=== PATIENT | female | born 1960 | race Caucasian/White ===

== ENCOUNTER 2017-10-17 13:22 | Outpatient (RCR) | payer BC ==
[2017-10-08] MEDS: IRON SUCROSE 200 MG/10 ML (VENOFER) VIAL IV SCH (12:30)
[2017-10-08 13:00] VITALS: BP 175/80
[2017-10-10 13:05] VITALS: BP 135/79
[2017-10-10] MEDS: IRON SUCROSE 200 MG/10 ML (VENOFER) VIAL IV SCH (13:15)
[2017-10-12 13:15] VITALS: BP 149/81
[2017-10-15] MEDS: IRON SUCROSE 200 MG/10 ML (VENOFER) VIAL IV SCH (12:58)
[2017-10-15 13:29] VITALS: BP 140/87
[~2017-10-17] VITALS: Ht 157.5 cm; Wt 79.4 kg
[~2017-10-17 13:22] MED LIST: IRON SUCROSE 200 MG/10 ML (VENOFER) VIAL IV ONE
[2017-10-17] MEDS: IRON SUCROSE 200 MG/10 ML (VENOFER) VIAL IV SCH (13:25)
[2017-10-17 13:46] VITALS: BP 127/77
[2017-10-17 13:52] VITALS: BP 127/77
== END 2018-01-06 | disposition home or self-care (01) ==
LOC: SDC 13:22
DX: D64.9 Anemia, unspecified (principal)
CPT/HCPCS: 96365

== ENCOUNTER → 2018-02-11 | Outpatient (CLI) | payer BC ==
--- NOTE | 2018-02-11 10:13 | Diagnostic Imaging Report ---
INDICATION: Routine screening. COMPARISON: 10/19/2014 and 08/04/2013. TECHNIQUE: 2D and 3D bilateral screening mammography was performed with CAD. FINDINGS: Both breasts are heterogeneously dense, limiting the sensitivity of mammography. Benign-appearing calcifications are identified bilaterally. No malignant appearing microcalcifications are seen. No dominant mass is seen. The axillae are unremarkable. IMPRESSION: No mammographic features suspicious for malignancy are identified. ACR BI-RADS Category 2: Benign findings. Result letter will be mailed to the patient. Note: At least 10% of breast cancer is not imaged by mammography. Dictated by: Dictated on workstation # [id number]
== END ==
LOC: RAD 07:53
DX: Z12.31 Encounter for screening mammogram for malignant neoplasm of breast (principal)
CPT/HCPCS: 77067

== ENCOUNTER → 2019-05-15 | Outpatient (CLI) | payer BC ==
--- NOTE | 2019-05-15 11:17 | Diagnostic Imaging Report ---
INDICATION: Routine screening. COMPARISON: Comparison is made with prior mammograms from 02/11/2018 and 10/19/2014. 2-D and 3-D bilateral screening mammography was performed. The current study was also evaluated with a Computer Aided Detection (CAD) system. 3-D tomosynthesis was also performed and reviewed. FINDINGS: Scattered fibroglandular densities are identified bilaterally. There are benign calcifications throughout both breasts. No spiculated mass or malignant appearing microcalcifications are seen. Axillae are unremarkable. IMPRESSION: No mammographic features suspicious for malignancy are identified. ACR BI-RADS Category 2: Benign findings. Result letter will be mailed to the patient. Note: At least 10% of breast cancer is not imaged by mammography. Dictated by: Dictated on workstation # [id number]
== END ==
LOC: RAD 10:04
DX: Z12.31 Encounter for screening mammogram for malignant neoplasm of breast (principal)
CPT/HCPCS: 77067

== ENCOUNTER → 2020-09-09 | Outpatient (CLI) | payer BC ==
--- NOTE | 2020-09-09 13:06 | Diagnostic Imaging Report ---
INDICATION: Left wrist pain. Time of exam 10:37 AM No prior studies are available for comparison. The distal radius and ulna appear to be intact. There is some widening of the scapholunate space, perhaps owing to scapholunate dissociation. There are some degenerative changes at the triscaphe and 1st CMC joints. No fractures are seen. Metacarpals are intact. IMPRESSION: There are some degenerative changes of the carpus. In addition, there is some mild widening of the scapholunate space which can be seen with scapholunate dissociation. No acute bony abnormality is detected. Dictated by: Dictated on workstation # [id number]
== END ==
LOC: RAD 10:10
DX: M19.032 Primary osteoarthritis, left wrist (principal)
CPT/HCPCS: 73110

== ENCOUNTER 2021-06-14 09:14 | Outpatient (CLI) | payer BC ==
[~2021-06-14] VITALS: Ht 162.6 cm; Wt 88.5 kg
[2021-06-14] MEDS ORDERED: BAMLANIVIMAB 700 MG/ETESEVIMAB 1,400 MG IN NS IV ONE ×3 (09:45)
[2021-06-14] MEDS ORDERED: EPINEPHrine INJECTION 1 MG/ML AMP IM PRN (09:45)
[2021-06-14] MEDS ORDERED: ACETAMINOPHEN 500 MG TAB (TYLENOL) PO PRN (09:45)
[2021-06-14] MEDS ORDERED: ONDANSETRON 4 MG/2 ML (SDV) Z0FRAN IV PRN (09:45)
[2021-06-14] MEDS ORDERED: diphenhydrAMINE 50 MG/ML INJ (BENADRYL) IV PRN (09:45)
[2021-06-14 10:28] VITALS: BP 138/78
== END 2021-06-14 11:15 | disposition home or self-care (01) ==
LOC: INFUSION 09:14
PROVIDERS: ATTEND Physician Assistant
DX: U07.1 COVID-19 (principal)

== ENCOUNTER → 2022-01-17 | Outpatient (CLI) | payer BC ==
--- NOTE | 2022-01-17 15:12 | Diagnostic Imaging Report ---
INDICATION: Screening. EXAMINATION: Bilateral 3D digital screening with CAD. COMPARISON: June 2018, January 2018, and September 2014. DENSITY: 2. FINDINGS: No breast mass, spiculated lesion, architectural distortion, suspicious calcifications, or findings to suggest malignancy. There has been no change. IMPRESSION: Negative mammography. ACR BI-RADS Category 1: Negative. Result letter will be mailed to the patient. Note: At least 10% of breast cancer is not imaged by mammography. Dictated by: Dictated on workstation # [id number]
== END ==
LOC: RAD 10:21
PROVIDERS: ATTEND Internal Medicine
DX: Z12.31 Encounter for screening mammogram for malignant neoplasm of breast (principal)
CPT/HCPCS: 77063; 77067

== ENCOUNTER 2023-01-28 19:31 | Inpatient (IN) | payer BC ==
[~2023-01-28] VITALS: Ht 162 cm; Wt 95.0 kg
[2023-01-28] MEDS ORDERED: ONDANSETRON 4 MG/2 ML (SDV) Z0FRAN IV PRN (20:15)
[2023-01-28] MEDS ORDERED: LACTATED RINGERS 1,000 ML IV ONE ×2 (20:15→21:00)
[2023-01-28] MEDS ORDERED: CEFEPIME INJECTION 1,000 MG in NS (IVPB) 50 ML 50 ML IV ONE (20:15)
[2023-01-28] MEDS ORDERED: ACETAMINOPHEN 500 MG TABLET PO PRN (20:15)
--- NOTE | 2023-01-28 20:18 | ED General ---
General Chief Complaint: Cough/Cold/Flu Symptoms Stated Complaint: NAUSEA/LOSS OF APETITE/DIZZINESS Source of Information: Patient History of Present Illness Date Seen by Provider: Jan 28, 2023 Time Seen by Provider: 20:00 Initial Comments PT ARRIVES VIA POV FROM HOME STARTED FEELING BAD TODAY WITH: -NAUSEA -DECREASED APPETITE -LIGHTHEADEDNESS -GENERALIZED WEAKNESS HAS NOT CHECKED TEMP AT HOME, AND UNAWARE OF FEVER TEMP IS 100.1 ON ARRIVAL SHE HAS NOT TAKEN ANYTHING FOR SYMPTOMS NO CHEST PAIN NO SHORTNESS OF BREATH NO COUGH NO VOMITING OR DIARRHEA OR ABDOMINAL PAIN NO URINARY SYMPTOMS RIGHT LOWER LEG IS RED, WARM AND SWOLLEN--PT IS UNAWARE OF THIS PCP: DR. JARA Allergies and Home Medications Allergies Coded Allergies: No Allergy Information Available (Unverified , 06/04/14) Patient Home Medication List Home Medication List Reviewed: Yes Albuterol Sulfate (Ventolin Hfa) 90 Mcg Hfa.aer.ad, 2 PUFF PO Q8H PRN for SHORTNESS OF BREATH, (Reported) Entered as Reported by: KANDACE GARCIA on 01/29/231129 Last Action: Held Atorvastatin Calcium (Atorvastatin Calcium) 10 Mg Tablet, 10 MG PO HS, (Reported) Entered as Reported by: KANDACE GARCIA on 01/29/231129 Last Action: Continued Calcium Carbonate (Calcium) 500 Mg Calcium (1250 Mg) Tablet, 500 MG PO DAILY, (Reported) Entered as Reported by: KANDACE GARCIA on 01/29/231130 Last Action: Held Celecoxib (Celecoxib) 400 Mg Capsule, 400 MG PO HS, (Reported) Entered as Reported by: KANDACE GARCIA on 01/29/231129 Last Action: Converted Fexofenadine HCl (Niurka Allergy) 180 Mg Tablet, 180 MG PO HS PRN for ALLERGIES, (Reported) Entered as Reported by: KANDACE GARCIA on 01/29/231129 Last Action: Held Glipizide (Glipizide) 5 Mg Tablet, 5 MG PO HS, (Reported) Entered as Reported by: KANDACE GARCIA on 01/29/231129 Last Action: Continued Hydrochlorothiazide (Hydrochlorothiazide) 25 Mg Tablet, 25 MG PO DAILY, (Reported) Entered as Reported by: KANDACE GARCIA on 01/29/231129 Last Action: Continued Losartan Potassium (Losartan Potassium) 100 Mg Tablet, 100 MG PO DAILY, (Reported) Entered as Reported by: KANDACE GARCIA on 01/29/231129 Last Action: Continued Metformin HCl (Metformin HCl) 500 Mg Tablet, 1,000 MG PO BID, (Reported) Entered as Reported by: KANDACE GARCIA on 01/29/231129 Last Action: Held Metoprolol Succinate (Metoprolol Succinate) 100 Mg Tab.er.24h, 100 MG PO HS, (Reported) Entered as Reported by: KANDACE GARCIA on 01/29/231129 Last Action: Continued Metoprolol Succinate (Metoprolol Succinate) 50 Mg Tab.er.24h, 50 MG PO DAILY, (Reported) Entered as Reported by: KANDACE GARCIA on 01/29/231129 Last Action: Continued Multivitamin (Multivitamin) 1 Each Tablet, 1 EACH PO DAILY, (Reported) Entered as Reported by: KANDACE GARCIA on 01/29/231130 Last Action: Held Pioglitazone HCl (Pioglitazone HCl) 45 Mg Tablet, 45 MG PO DAILY, (Reported) Entered as Reported by: KANDACE GARCIA on 01/29/231129 Last Action: Held Review of Systems Review of Systems Constitutional: see HPI, dizziness, malaise, weakness EENTM: no symptoms reported Respiratory: no symptoms reported Cardiovascular: no symptoms reported Gastrointestinal: see HPI; No abdominal pain, No diarrhea; loss of appetite, nausea; No vomiting Genitourinary: no symptoms reported Musculoskeletal: see HPI Skin: see HPI Psychiatric/Neurological: No Symptoms Reported Hematologic/Lymphatic: No Symptoms Reported Immunological/Allergic: no symptoms reported Past Hsfrauh-Kvrwpx-Jswzgk Hx Patient Social History Tobacco Use?: Yes Tobacco type used: Cigarettes Smoking Status: Former Smoker Substance use?: No Alcohol Use?: No Past Medical History Surgeries: Yes Gallbladder Respiratory: Yes Cardiac: Yes High Cholesterol, Hypertension Neurological: No Genitourinary: No Gastrointestinal: No Musculoskeletal: No Endocrine: Yes Diabetes, Non-Insulin dep HEENT: Yes Hearing Impairment: Hard of Hearing Cancer: No Psychosocial: No Integumentary: No Blood Disorders: No Family Medical History SOCIAL HISTORY: -SMOKED 1 PPD, QUIT AGE 38 -DENIES ALCOHOL USE -DENIES DRUG USE Physical Exam Vital Signs Vital Signs - First Documented 01/28/23 20:06 Temp 37.9 Pulse 131 Resp 20 B/P (MAP) 190/86 (120) Pulse Ox 95 O2 Delivery Nasal Cannula O2 Flow Rate 2.00 Capillary Refill : Height, Weight, BMI Height: 5'2.00" Weight: 175lbs. 0.0oz. 79.398253mz; BMI Method: General Appearance: No Apparent Distress, WD/WN HEENT: PERRL/EOMI Neck: Normal Inspection Respiratory: Normal Breath Sounds, No Accessory Muscle Use, No Respiratory Distress Cardiovascular: No Edema, No JVD, No Murmur, Normal Peripheral Pulses, Tachycardia Gastrointestinal: Non Tender, Soft Back: No CVA Tenderness Extremity: Normal Capillary Refill, Normal Inspection, No Pedal Edema, Other (DIFFUSE ERYTHEMA AND WARMTH AND TENDERNESS TO RIGHT LOWER LEG FROM FOOT TO JUST BELOW THE KNEE. THERE ARE EXTENSIVE SCABBED SORES TO BILATERAL MEDIAL THIGHS, LOWER LEGS AND FEET. BOTH FEET WITH EXTENSIVE SCALING TO SOLES AND SIDES OF FEET, WITH EXTENSIVE SCABBING--HAS APPEARANCE OF CHRONIC TINEA PEDIS. ) Neurologic/Psychiatric: Alert, Oriented x3, No Motor/Sensory Deficits, Normal Mood/Affect, manager van II-XII Norm as Tested Skin: Normal Color, Warm/Dry, Other ( ABOVE. THERE IS ALSO EXTENSIVE CANDIDAL INTERTRIGO UNDER BREAST AND INGUINAL SKIN FOLDS ) Focused Exam Sepsis Stage: Sepsis Possible Source: Skin/Soft Tissue Lactate Level 01/28/23 20:05: Lactic Acid Level 2.57*H 01/28/23 23:02: Lactic Acid Level 2.24*H Time of Focused Exam: 21:10 Respiratory: Normal Breath Sounds, No Accessory Muscle Use, No Respiratory Distress Cardiovascular: Regular Rate, Rhythm Capillary Refill: Less Than 3 Seconds Peripheral Pulses: 2+ Dorsalis Pedis (R), 2+ Left Dors-Pedis (L), 2+ Radial Pulses (R), 2+ Radial Pulses (L) Skin: normal color, warm/dry Lactic Acid Level Laboratory Tests Test 01/28/23 01:23 01/28/23 20:05 01/28/23 23:02 Lactic Acid Level 3.03 MMOL/L (0.50-2.00) *H 2.57 MMOL/L (0.50-2.00) *H 2.24 MMOL/L (0.50-2.00) *H Within 3hrs of presentation: Admin fluids, Admin ABX, Blood cultures prior to ABX's, Focus exam, Lactate level Progress/Results/Core Measures Suspected Sepsis SIRS Temperature: Pulse: Respiratory Rate: Laboratory Tests 01/28/23 20:05: White Blood Count 22.8H Blood Pressure / Mean: 01/28/23 20:05: Lactic Acid Level 2.57*H 01/28/23 23:02: Lactic Acid Level 2.24*H Laboratory Tests 01/28/23 20:05: Creatinine 0.82, INR Comment 1.0, Platelet Count 350, Total Bilirubin 0.6 Results/Orders Lab Results Laboratory Tests Test 01/28/23 01:23 01/28/23 20:05 01/28/23 20:38 01/28/23 23:02 Range/Units Lactic Acid Level 3.03 *H 2.57 *H 2.24 *H 0.50-2.00 MMOL/L White Blood Count 22.8 H 4.3-11.0 10^3/uL Red Blood Count 4.41 3.80-5.11 10^6/uL Hemoglobin 11.6 11.5-16.0 g/dL Hematocrit 36 35-52 % Mean Corpuscular Volume 81 80-99 fL Mean Corpuscular Hemoglobin 26 25-34 pg Mean Corpuscular Hemoglobin Concent 32 32-36 g/dL Red Cell Distribution Width 14.5 10.0-14.5 % Platelet Count 350 130-400 10^3/uL Mean Platelet Volume 9.5 9.0-12.2 fL Immature Granulocyte % (Auto) 1 % Neutrophils (%) (Auto) 91 H 42-75 % Lymphocytes (%) (Auto) 4 L 12-44 % Monocytes (%) (Auto) 3 0-12 % Eosinophils (%) (Auto) 0 0-10 % Basophils (%) (Auto) 0 0-10 % Neutrophils # (Auto) 20.9 H 1.8-7.8 10^3/uL Lymphocytes # (Auto) 1.0 1.0-4.0 10^3/uL Monocytes # (Auto) 0.6 0.0-1.0 10^3/uL Eosinophils # (Auto) 0.0 0.0-0.3 10^3/uL Basophils # (Auto) 0.1 0.0-0.1 10^3/uL Immature Granulocyte # (Auto) 0.2 H 0.0-0.1 10^3/uL Neutrophils % (Manual) 91 % Lymphocytes % (Manual) 6 % Monocytes % (Manual) 1 % Band Neutrophils 2 % Toxic Granulation 1+ Blood Morphology Comment NORMAL Erythrocyte Sedimentation Rate 29 0-30 MM/HR Prothrombin Time 13.6 12.2-14.7 SEC INR Comment 1.0 0.8-1.4 Activated Partial Thromboplast Time 31 24-35 SEC Sodium Level 131 L 135-145 MMOL/L Potassium Level 3.5 L 3.6-5.0 MMOL/L Chloride Level 94 L 98-107 MMOL/L Carbon Dioxide Level 20 L 21-32 MMOL/L Anion Gap 17 H 5-14 MMOL/L Blood Urea Nitrogen 14 7-18 MG/DL Creatinine 0.82 0.60-1.30 MG/DL Estimat Glomerular Filtration Rate 80 BUN/Creatinine Ratio 17 Glucose Level 205 H 70-105 MG/DL Calcium Level 8.7 8.5-10.1 MG/DL Corrected Calcium 8.5 8.5-10.1 MG/DL Magnesium Level 0.9 *L 1.6-2.4 MG/DL Total Bilirubin 0.6 0.1-1.0 MG/DL Aspartate Amino Transf (AST/SGOT) 26 5-34 U/L Alanine Aminotransferase (ALT/SGPT) 24 0-55 U/L Alkaline Phosphatase 55 40-136 U/L Total Creatine Kinase 51 29-168 U/L Creatine Kinase MB 0.5 <6.6 NG/ML Myoglobin 57.0 10.0-92.0 NG/ML Troponin I < 0.028 <0.028 NG/ML C-Reactive Protein High Sensitivity 13.22 H 0.00-0.50 MG/DL B-Type Natriuretic Peptide 121.2 H <100.0 PG/ML Total Protein 7.7 6.4-8.2 GM/DL Albumin 4.2 3.2-4.5 GM/DL Amylase Level 26 25-125 U/L Lipase 9 8-78 U/L Influenza Type A (RT-PCR) Not Detected Not Detecte Influenza Type B (RT-PCR) Not Detected Not Detecte SARS-CoV-2 RNA (RT-PCR) Not Detected Not Detecte Urine Color YELLOW Urine Clarity CLEAR Urine pH 6.0 5-9 Urine Specific [place] 1.025 H 1.016-1.022 Urine Protein 3+ H NEGATIVE Urine Glucose (UA) NEGATIVE NEGATIVE Urine Ketones 3+ H NEGATIVE Urine Nitrite NEGATIVE NEGATIVE Urine Bilirubin NEGATIVE NEGATIVE Urine Urobilinogen 0.2 < = 1.0 MG/DL Urine Leukocyte Esterase NEGATIVE NEGATIVE Urine RBC (Auto) TRACE H NEGATIVE Urine RBC 0-2 /HPF Urine WBC 2-5 /HPF Urine Squamous Epithelial Cells 0-2 /HPF Urine Crystals NONE /LPF Urine Bacteria FEW H /HPF Urine Casts NONE /LPF Urine Mucus SMALL H /LPF Urine Culture Indicated CULTURE PENDING Micro Results Microbiology 01/28/23 Blood Culture - Preliminary, Resulted No growth 01/28/23 Urine Culture - Final, Complete Strep agalactiae Group B 01/28/23 Blood Culture - Preliminary, Resulted No growth My Orders Orders - KOLBY MIRANDA DO Covid 19 Inhouse Test (01/28/23 20:03) Influenza A And B By Pcr (01/28/23 20:03) Ed Iv/Invasive Line Start (01/28/23 20:12) Ekg Tracing (01/28/23 20:12) O2 (01/28/23 20:12) Monitor-Rhythm Ecg Trace Only (01/28/23 20:12) Chest 1 View, Ap/Pa Only (01/28/23 20:12) Cbc With Automated Diff (01/28/23 20:12) Comprehensive Metabolic Panel (01/28/23 20:12) Blood Culture (01/28/23 20:12) Urinalysis (01/28/23 20:12) Urine Culture (01/28/23 20:12) Protime With Inr (01/28/23 20:12) Partial Thromboplastin Time (01/28/23 20:12) Acetaminophen Tablet (Acetaminophen Ta (01/28/23 20:15) Ed Iv/Invasive Line Start (01/28/23 20:12) Ed Iv/Invasive Line Start (01/28/23 20:12) Ondansetron Injection (Zofran Injectio (01/28/23 20:15) O2 (01/28/23 20:12) Remove Rings In Anticipation O (01/28/23 20:12) Lactic Acid Analyzer (01/28/23 20:12) Lactated Ringers (Lr 1000 Ml Iv Solution (01/28/23 20:15) Cefepime Injection (Cefepime Injection) (01/28/23 20:15) Bnp Rick (01/28/23 20:12) Creatine Kinase (01/28/23 20:12) Creatine Kinase Mb (01/28/23 20:12) Hs C Reactive Protein (01/28/23 20:12) Magnesium (01/28/23 20:12) Erythrocyte Sedimentation Rate (01/28/23 20:12) Myoglobin Serum (01/28/23 20:12) Troponin I Rick (01/28/23 20:12) Ibuprofen Tablet (Motrin Tablet) (01/28/23 20:30) Manual Differential (01/28/23 20:05) Ed Iv/Invasive Line Start (01/28/23 20:50) Lactated Ringers (Lr 1000 Ml Iv Solution (01/28/23 21:00) Amylase (01/28/23 21:04) Lipase (01/28/23 21:04) Ct Chest/Abdomen/Pelvis W (01/28/23 21:04) Vancomycin Injection (Vancomycin Injecti (01/28/23 21:30) Iohexol Injection (Omnipaque 350 Mg/Ml 1 (01/28/23 21:30) Received Contrast (Hold Metformin- Contr (01/28/23 21:30) Ns (Ivpb) 100 Ml (Sodium Chloride 0.9% 1 (01/28/23 21:30) Magnesium 1 Gm/100 Ml Ivpb (Magnesium [place] (01/28/23 21:30) Medications Given in ED Vital Signs/I&O 01/28/23 01/28/23 01/28/23 01/28/23 20:06 20:06 20:40 20:57 Temp 37.9 37.9 37.9 Pulse 131 Resp 20 B/P (MAP) 190/86 (120) Pulse Ox 95 90 O2 Delivery Nasal Cannula Room Air O2 Flow Rate 2.00 Capillary Refill : Progress Note : Progress Note VITALS ON ARRIVAL: TEMP 100.1, HR 125, RR 25, O2 SAT 92% ON ROOM AIR PLACED IN ISOLATION ROOM PPE WORN COVID AND FLU TESTS ORDERED SEPSIS PROTOCOL INITIATED. GIVEN: -IV FLUIDS -ZOFRAN -TYLENOL AND MOTRIN FOR FEVER -CEFEMPIME, ALSO ORDERED ZOSYN AND VANCYMYCIN NO DETERIORATION IN PT'S CONDITION DURING ER STAY VITALS STABLE. TEMP AND HEART RATE DOWN. BLOOD PRESSURE STABLE. NO HYPOTENSION LABS: -CBC WITH WBC 22.8, HGB 11.6, PLT 350,000 -CMP WITH NA 131, K 3.5, CO2 20, ANION GAP 17, BUN 14, CR 0.82, GLU 205, MG 0.09. LFT'S NORMAL, AMYLASE/LIPASE NORMAL -SED RATE 29, CRP 13.22 -LACTIC ACID 2.57 -COAGULATION STUDIES NORMAL -UA--FEW BACTERIA, 3+ PROTEIN, 3+ KETONES -COVID/FLU NEGATIVE EKG UNREMARKABLE CXR UNREMARKABLE CT CHEST ABDOMEN/PELVIS UNREMARKABLE DISCUSSED TEST RESULTS AND NEED FOR ADMIT AND PT AGREES TO PLAN REVIEWED PRIOR RECORDS ECG Initial ECG Impression Date: Jan 28, 2023 Initial ECG Impression Time: 20:22 Initial ECG Rate: 125 Initial ECG Rhythm: S.Tach Initial ECG Intervals: Normal Initial ECG Comparisson: No Previous ECG Available Comment INTERPRETED BY ME Diagnostic Imaging Comments CXR--PER RADIOLOGIST REPORT AT 2041 FINDINGS: Heart size and pulmonary vasculature are normal. The lungs are clear without consolidation, pleural effusion or pneumothorax. The osseous structures are intact. IMPRESSION: No acute radiographic abnormality in the chest. CT CHEST/ABDOMEN/PELVIS--PER RADIOLOGIST REPORT AT 2147 FINDINGS: Thyroid: The visualized thyroid gland is normal. Mediastinum: Heart size is normal without significant pericardial effusion. The aorta is normal in caliber. No suspicious lymphadenopathy. Lungs and airways: The lungs are clear without consolidation, pleural effusion or pneumothorax. The airways are normal. Solid organs: The liver is normal without focal lesion. The gallbladder is surgically absent. There is no biliary ductal dilation. Pancreas is normal. Spleen is normal. Adrenal glands are normal. The kidneys are normal without hydronephrosis. Bowel: The stomach and small bowel are normal without obstruction. The colon is normal. The appendix is normal. Peritoneum: There is no intraperitoneal free fluid or free air. No suspicious lymphadenopathy. Vasculature: Calcification of the aorta without aneurysm. Musculoskeletal: Degenerative changes of the spine without suspicious osseous lesion or compression fracture. There are prominent right inguinal lymph nodes present. Trace fat stranding or edema seen along the anterior right thigh near the lymph nodes. Pelvis: The uterus and adnexa are normal. The urinary bladder is normal. IMPRESSION: 1. No acute abnormality in the chest, abdomen or pelvis. 2. Prominent right internal lymph nodes which may be reactive given history of rash within the lower extremities. There is trace edema seen within the subcutaneous fat of the right thigh. Reviewed: Reviewed by Me Departure Communication (Admissions) 2149--SPOKE WITH DR. ANDERSON, HOSPITALIST. ACCEPTS PT FOR ADMIT. Impression Primary Impression: Sepsis Additional Impressions: Cellulitis of right leg Hypomagnesemia T2DM (type 2 diabetes mellitus) Tinea pedis Candidal intertrigo Obesity HTN (hypertension) Disposition: ADMITTED INPATIENT Condition: Stable Admissions Decision to Admit Reason: Admit from ER (General) Decision to Admit/Date: Jan 28, 2023 Time/Decision to Admit Time: 21:50 Departure-Patient Inst. Referrals: JONNIE JARA MD (PCP/Family) Primary Care Physician KOLBY MIRANDA DO Jan 28, 2023 20:18
[2023-01-28 20:22] LABS: BASOPHILS # (AUTO) 0.1 10^3/uL (0.0-0.1); BASOPHILS % (AUTO) 0 % (0-10); EOSINOPHILS % (AUTO) 0 % (0-10); HEMATOCRIT 36 % (35-52); HEMOGLOBIN 11.6 g/dL (11.5-16.0); LYMPHOCYTES % (AUTO) 4 % (12-44); MEAN CORPUSCULAR HEMOGLOBIN 26 pg (25-34); MEAN CORPUSCULAR HGB CONC 32 g/dL (32-36); MEAN CORPUSCULAR VOLUME 81 fL (80-99); MEAN PLATELET VOLUME 9.5 fL (9.0-12.2); MONOCYTES # (AUTO) 0.6 10^3/uL (0.0-1.0); MONOCYTES % (AUTO) 3 % (0-12); NEUTROPHILS # (AUTO) 20.9 10^3/uL (1.8-7.8); NEUTROPHILS % (AUTO) 91 % (42-75); PLATELET COUNT 350 10^3/uL (130-400); WHITE BLOOD COUNT 22.8 10^3/uL (4.3-11.0)
[2023-01-28] MEDS ORDERED: IBUPROFEN 800 MG TABLET PO ONE (20:30)
--- NOTE | 2023-01-28 20:40 | Diagnostic Imaging Report ---
EXAMINATION: Chest, 1 view. HISTORY: Fever. COMPARISON: None available. FINDINGS: Heart size and pulmonary vasculature are normal. The lungs are clear without consolidation, pleural effusion or pneumothorax. The osseous structures are intact. IMPRESSION: No acute radiographic abnormality in the chest. Dictated by: Dictated on workstation # [id number]
[2023-01-28 20:41] LABS: ALANINE AMINOTRANSFERASE 24 U/L (0-55); ALBUMIN 4.2 GM/DL (3.2-4.5); ALKALINE PHOSPHATASE 55 U/L (40-136); BILIRUBIN,TOTAL 0.6 MG/DL (0.1-1.0); BUN/CREATININE RATIO 17; CALCIUM 8.7 MG/DL (8.5-10.1); CARBON DIOXIDE 20 MMOL/L (21-32); CHLORIDE 94 MMOL/L (98-107); CREATINE KINASE 51 U/L (29-168); CREATININE SERUM 0.82 MG/DL (0.60-1.30); GFR ESTIMATED 80; GLUCOSE 205 MG/DL (70-105); POTASSIUM 3.5 MMOL/L (3.6-5.0); SODIUM 131 MMOL/L (135-145); TOTAL PROTEIN 7.7 GM/DL (6.4-8.2)
[2023-01-28 20:45] LABS: PROTHROMBIN TIME PATIENT 13.6 SEC (12.2-14.7)
[2023-01-28 20:48] LABS: BAND NEUTROPHILS 2 %; CREATINE KINASE MB 0.5 NG/ML (<6.6); ERYTHROCYTE SEDIMENTATION RATE 29 MM/HR (0-30); LYMPHOCYTES % (MANUAL) 6 %; MONOCYTES % (MANUAL) 1 %; NEUTROPHILS % (MANUAL) 91 %; RBC MORPH NORMAL; TOXIC GRANULATION/VACUOLAZATIO 1+
[2023-01-28 21:02] LABS: CLARITY,URINE CLEAR; COLOR,URINE YELLOW
[2023-01-28 21:03] LABS: BACTERIA,URINE FEW /HPF; BILIRUBIN,URINE NEGATIVE (NEGATIVE); GLUCOSE, URINE (UA) NEGATIVE (NEGATIVE); KETONES,URINE 3+ (NEGATIVE); LEUKOCYTE ESTERASE ,URINE NEGATIVE (NEGATIVE); NITRITE,URINE NEGATIVE (NEGATIVE); PROTEIN,URINE 3+ (NEGATIVE); RBC,URINE 0-2 /HPF; SQUAMOUS EPITHELIAL CELL,UR 0-2 /HPF
[2023-01-28 21:20] LABS: MAGNESIUM 0.9 MG/DL (1.6-2.4)
[2023-01-28] MEDS ORDERED: NS 100 ML (IVPB) BAG IV ONE (21:30)
[2023-01-28] MEDS ORDERED: HOLD METFORMIN - RECEIVED CONTRAST 20 ML VIAL IV SCH (21:30)
[2023-01-28] MEDS ORDERED: IOHEXOL 350 MG/ML 100 ML (OMNIPAQUE 350) VIAL IV ONE (21:30)
--- NOTE | 2023-01-28 21:38 | Diagnostic Imaging Report ---
EXAMINATION: CT chest, abdomen and pelvis with intravenous contrast. TECHNIQUE: Multiple contiguous axial images were obtained through the chest, abdomen and pelvis after the uneventful administration of intravenous contrast. All CT scans use one or more of the following dose optimizing techniques: automated exposure control, MA and/or KvP adjustment based on patient size and exam type or iterative reconstruction. HISTORY: Nausea, fever. COMPARISON: 06/04/2014. FINDINGS: Thyroid: The visualized thyroid gland is normal. Mediastinum: Heart size is normal without significant pericardial effusion. The aorta is normal in caliber. No suspicious lymphadenopathy. Lungs and airways: The lungs are clear without consolidation, pleural effusion or pneumothorax. The airways are normal. Solid organs: The liver is normal without focal lesion. The gallbladder is surgically absent. There is no biliary ductal dilation. Pancreas is normal. Spleen is normal. Adrenal glands are normal. The kidneys are normal without hydronephrosis. Bowel: The stomach and small bowel are normal without obstruction. The colon is normal. The appendix is normal. Peritoneum: There is no intraperitoneal free fluid or free air. No suspicious lymphadenopathy. Vasculature: Calcification of the aorta without aneurysm. Musculoskeletal: Degenerative changes of the spine without suspicious osseous lesion or compression fracture. There are prominent right inguinal lymph nodes present. Trace fat stranding or edema seen along the anterior right thigh near the lymph nodes. Pelvis: The uterus and adnexa are normal. The urinary bladder is normal. IMPRESSION: 1. No acute abnormality in the chest, abdomen or pelvis. 2. Prominent right internal lymph nodes which may be reactive given history of rash within the lower extremities. There is trace edema seen within the subcutaneous fat of the right thigh. Dictated by: Dictated on workstation # [id number]
[2023-01-28 21:45] LABS: AMYLASE 26 U/L (25-125); LIPASE 9 U/L (8-78)
[2023-01-28] MEDS: MAGNESIUM 1 GM/100 ML IVPB 100 ML IV SCH ×2 (21:57→23:06)
[2023-01-28 23:33] VITALS: BP 148/87
[2023-01-29] MEDS: MAGNESIUM 1 GM/100 ML IVPB 100 ML IV SCH ×2 (00:01→01:34)
[2023-01-29] MEDS: VANCOMYCIN INJECTION 1,000 MG in NS (IVPB) 250 ML 250 ML IV SCH ×2 (00:04→01:38)
[2023-01-29] MEDS ORDERED: ONDANSETRON 4 MG/2 ML (SDV) Z0FRAN IV PRN (00:30)
[2023-01-29] MEDS ORDERED: fentaNYL INJECTION 100 MCG/2 ML VIAL IV PRN (00:30)
[2023-01-29] MEDS: NS IV 1000 ML 1,000 ML IV SCH ×4 (00:47→16:24)
[2023-01-29] MEDS ORDERED: PIPERACILLIN SODIUM/TAZOBACTAM 4.5 GM in NS (IVPB) 100 ML 100 ML IV ONE (01:00)
[2023-01-29] MEDS: FLUCONAZOLE 200 MG/NACL 100 ML (PRE-MIX) IV SCH (01:34)
[2023-01-29 03:13] VITALS: BP 143/83
[2023-01-29] MEDS: ACETAMINOPHEN 500 MG TABLET PO PRN ×2 (03:20→16:39)
[2023-01-29] MEDS: IBUPROFEN 800 MG TABLET PO PRN (04:43)
[2023-01-29] MEDS: PIPERACILLIN SODIUM/TAZOBACTAM 4.5 GM in NS (IVPB) 100 ML 100 ML IV SCH ×3 (05:29→21:12)
[2023-01-29 05:30] LABS: BASOPHILS # (AUTO) 0.1 10^3/uL (0.0-0.1); BASOPHILS % (AUTO) 1 % (0-10); EOSINOPHILS % (AUTO) 0 % (0-10); HEMATOCRIT 30 % (35-52); HEMOGLOBIN 9.8 g/dL (11.5-16.0); LYMPHOCYTES % (AUTO) 7 % (12-44); MEAN CORPUSCULAR HEMOGLOBIN 27 pg (25-34); MEAN CORPUSCULAR HGB CONC 33 g/dL (32-36); MEAN CORPUSCULAR VOLUME 82 fL (80-99); MEAN PLATELET VOLUME 9.5 fL (9.0-12.2); MONOCYTES # (AUTO) 0.6 10^3/uL (0.0-1.0); MONOCYTES % (AUTO) 4 % (0-12); NEUTROPHILS # (AUTO) 13.5 10^3/uL (1.8-7.8); NEUTROPHILS % (AUTO) 88 % (42-75); PLATELET COUNT 291 10^3/uL (130-400); WHITE BLOOD COUNT 15.3 10^3/uL (4.3-11.0)
[2023-01-29 05:44] LABS: ALBUMIN 3.5 GM/DL (3.2-4.5); POTASSIUM 3.4 MMOL/L (3.6-5.0)
[2023-01-29 05:45] LABS: CALCIUM 8.2 MG/DL (8.5-10.1)
[2023-01-29 05:47] LABS: TOTAL PROTEIN 6.8 GM/DL (6.4-8.2)
[2023-01-29 05:48] LABS: BILIRUBIN,TOTAL 0.5 MG/DL (0.1-1.0)
[2023-01-29 05:50] LABS: CREATININE SERUM 0.83 MG/DL (0.60-1.30)
[2023-01-29] MEDS: inSUlin ASPART 1 UNIT/0.01 ML (PER UNIT) SC SCH ×4 (05:55→21:11)
[2023-01-29 07:43] VITALS: BP 123/60
[2023-01-29] MEDS: NYSTATIN CREAM (MYCOSTATIN) 30 GM TUBE TP SCH ×3 (08:48→20:07)
[2023-01-29] MEDS ORDERED: FEXO180T84 PO (11:30)
[2023-01-29] MEDS ORDERED: LOSA100T58 PO (11:30)
[2023-01-29] MEDS ORDERED: GLIP5TAB13 PO (11:30)
[2023-01-29] MEDS ORDERED: HYDR25TA4 PO (11:30)
[2023-01-29] MEDS ORDERED: ATOR10TA66 PO (11:30)
[2023-01-29] MEDS ORDERED: METO50TA7 PO (11:30)
[2023-01-29] MEDS ORDERED: ALBU18HF2 PO (11:30)
[2023-01-29] MEDS ORDERED: PIOG45TA65 PO (11:30)
[2023-01-29] MEDS ORDERED: MTP100TCR PO (11:30)
[2023-01-29] MEDS ORDERED: METF-397 PO (11:30)
[2023-01-29] MEDS ORDERED: CELE400C10 PO (11:30)
[2023-01-29] MEDS ORDERED: CALC-823 PO (11:31)
[2023-01-29] MEDS ORDERED: MULT-1136 PO (11:31)
[2023-01-29 11:38] VITALS: BP 143/83
--- NOTE | 2023-01-29 14:18 | History & Physical-Hospitalist ---
History of Present Illness HPI/Chief Complaint Azeb Elliott is a 62 year old female with PMH HTN, T2DM, HLD, obesity, who presented with malaise. She reports that she started feeling sick yesterday. She had fevers and chills. She had nausea. She did not have a good appetite. She was feeling weak. She noticed her leg was getting red once she got to the ER. She hs having some swelling and pain. She says her leg is warm. She has some open wounds on her proximal, dorsal foot. She has been having issues with a fungal infection. She denies shortness of breath and cough. She denies chest pain. She denies dysuria. Source: patient Exam Limitations: no limitations Date Seen 01/29/23 Time Seen by a Provider: 10:55 Attending Physician Sid Madison MD PCP Admitting Physician: Martín Alamo MD Attending Physician: Martín Alamo MD Referring Physician Date of Admission Jan 28, 2023 at 23:19 Home Medications & Allergies Home Medications Reviewed patient Home Medication Reconciliation performed by pharmacy medication reconciliations central processing technician and/or nursing. Patients Allergies have been reviewed. Allergies Allergies Coded Allergies No Allergy Information Available ([id number]/11/14) Past Fyajbeh-Sjzefq-Dlycip Hx Patient Social History Tobacco Use?: No Smoking Status: Former Smoker Use of E-Cig and/or Vaping dev: No Substance use?: No Alcohol Use?: No Pt feels they are or have been: No Seasonal Allergies Seasonal Allergies: No Current Status status: No Communicates: Verbally Primary Language: Lithuanian Preferred Spoken Language: Lithuanian Is interpretation needed?: No Sensory deficits: Other Implanted or Applied Medical D: None Past Medical History Surgeries: Gallbladder High Cholesterol, Hypertension Diabetes, Non-Insulin dep Hearing Impairment: Hard of Hearing Blood Disorders: No Family Medical History No Pertinent Family Hx Review of Systems Constitutional: chills, fever, malaise, weakness Respiratory: no symptoms reported Cardiovascular: no symptoms reported Gastrointestinal: loss of appetite, nausea Physical Exam Physical Exam Vital Signs Vital Signs - First Documented 01/28/23 20:06 Temp 37.9 Pulse 131 Resp 20 B/P (MAP) 190/86 (120) Pulse Ox 95 O2 Delivery Nasal Cannula O2 Flow Rate 2.00 Capillary Refill : Less Than 3 Seconds Height, Weight, BMI Height: 5'2.00" Weight: 175lbs. 0.0oz. [id number]; 36.16 BMI Method: General Appearance: No Apparent Distress, Obese Neck: Normal Inspection, Supple Respiratory: Lungs Clear, Normal Breath Sounds, No Respiratory Distress Cardiovascular: Regular Rate, Rhythm, No Murmur Gastrointestinal: Normal Bowel Sounds, Non Tender, Soft Extremity: Inflammation (right lower extremity mild erythema from ankle to knee with swelling and slight warmth) Neurologic/Psychiatric: Alert, Normal Mood/Affect Skin: Warm/Dry, Erythema (right leg) Results Results/Procedures Labs Laboratory Tests 01/28/23 20:05 01/29/23 05:20 Patient resulted labs reviewed. Imaging: Reviewed Imaging Report Assessment/Plan Admission Diagnosis Severe sepsis Admission Status: Inpatient Order (span 2 midnights) Reason for Inpatient Admission: Cellulitis Assessment and Plan Severe sepsis due to cellulitis Lactic acidosis Shantel infection Vanc and Zosyn IV fluids Diflucan T2DM Sliding scale insulin HTN HLD Obesity Resume Metoprolol Holding other home meds DVT prophylaxis: Lovenox Diagnosis/Problems Diagnosis/Problems (1) Severe sepsis Status: Acute (2) Cellulitis Status: Acute Qualifiers: Site of cellulitis: extremity Site of cellulitis of extremity: lower extremity Laterality: right Qualified Codes: L03.115 - Cellulitis of right lower limb (3) Lactic acidosis Status: Acute (4) HTN (hypertension) Status: Chronic (5) T2DM (type 2 diabetes mellitus) Status: Chronic (6) HLD (hyperlipidemia) Status: Chronic (7) Obesity Status: Chronic MARTÍN ALAMO MD Jan 29, 2023 14:18
[2023-01-29 15:31] VITALS: BP 154/85
[2023-01-29] MEDS: VANCOMYCIN 750 MG/NS 250 ML IVPB IV SCH ×2 (18:28)
[2023-01-29 20:07] VITALS: BP 160/84
[2023-01-29 23:16] VITALS: BP 185/92
[2023-01-30] VITALS (7 sets, daily range): BP systolic 123–180; BP diastolic 76–96
[2023-01-30] MEDS ORDERED: FUROSEMIDE INJECTION 40 MG/4 ML VIAL IVP ONE (00:15)
[2023-01-30] MEDS ORDERED: FUROSEMIDE INJECTION 40 MG/4 ML VIAL ONE (00:20)
[2023-01-30] MEDS: FLUCONAZOLE 200 MG/NACL 100 ML (PRE-MIX) IV SCH (01:12)
[2023-01-30] MEDS: NS IV 1000 ML 1,000 ML IV SCH (01:12)
[2023-01-30] MEDS: ACETAMINOPHEN 500 MG TABLET PO PRN ×2 (03:50→16:04)
[2023-01-30] MEDS: inSUlin ASPART 1 UNIT/0.01 ML (PER UNIT) SC SCH ×4 (05:14→20:37)
[2023-01-30] MEDS: PIPERACILLIN SODIUM/TAZOBACTAM 4.5 GM in NS (IVPB) 100 ML 100 ML IV SCH ×3 (05:15→21:26)
[2023-01-30] MEDS: VANCOMYCIN 750 MG/NS 250 ML IVPB IV SCH ×4 (05:15→18:25)
[2023-01-30 05:28] LABS: BASOPHILS # (AUTO) 0.1 10^3/uL (0.0-0.1); BASOPHILS % (AUTO) 1 % (0-10); EOSINOPHILS # (AUTO) 0.1 10^3/uL (0.0-0.3); EOSINOPHILS % (AUTO) 0 % (0-10); HEMATOCRIT 30 % (35-52); HEMOGLOBIN 9.8 g/dL (11.5-16.0); LYMPHOCYTES % (AUTO) 6 % (12-44); MEAN CORPUSCULAR HEMOGLOBIN 27 pg (25-34); MEAN CORPUSCULAR HGB CONC 32 g/dL (32-36); MEAN CORPUSCULAR VOLUME 83 fL (80-99); MEAN PLATELET VOLUME 9.8 fL (9.0-12.2); MONOCYTES # (AUTO) 0.7 10^3/uL (0.0-1.0); MONOCYTES % (AUTO) 4 % (0-12); NEUTROPHILS # (AUTO) 15.1 10^3/uL (1.8-7.8); NEUTROPHILS % (AUTO) 88 % (42-75); PLATELET COUNT 277 10^3/uL (130-400); WHITE BLOOD COUNT 17.1 10^3/uL (4.3-11.0)
[2023-01-30 06:03] LABS: ALBUMIN 3.6 GM/DL (3.2-4.5); BILIRUBIN,TOTAL 0.5 MG/DL (0.1-1.0); CALCIUM 8.3 MG/DL (8.5-10.1); CREATININE SERUM 0.76 MG/DL (0.60-1.30); POTASSIUM 3.1 MMOL/L (3.6-5.0); TOTAL PROTEIN 6.9 GM/DL (6.4-8.2)
[2023-01-30] MEDS: NYSTATIN CREAM (MYCOSTATIN) 30 GM TUBE TP SCH ×3 (08:18→20:37)
--- NOTE | 2023-01-30 12:46 | Progress Note - Hospitalist ---
Subjective HPI/CC On Admission Date Seen by Provider: Jan 30, 2023 Azeb Elliott is a 62 year old female with PMH HTN, T2DM, HLD, obesity, who presented with malaise. She reports that she started feeling sick yesterday. She had fevers and chills. She had nausea. She did not have a good appetite. She was feeling weak. She noticed her leg was getting red once she got to the ER. She hs having some swelling and pain. She says her leg is warm. She has some open wounds on her proximal, dorsal foot. She has been having issues with a fungal infection. She denies shortness of breath and cough. She denies chest pain. She denies dysuria. Subjective/Events-last exam Pt reports doing about the same. Leg improved from admission but still red. Sitting with legs down in recliner though and encouraged her to keep them elevated. She immediately complied. Reviewed events from last night. Focused Exam Lactate Level 01/28/23 20:05: Lactic Acid Level 2.57*H 01/28/23 23:02: Lactic Acid Level 2.24*H 01/29/23 05:20: Lactic Acid Level 1.38 Objective Exam Vital Signs Vital Signs Date Time Temp Pulse Resp B/P (MAP) Pulse Ox O2 Delivery O2 Flow Rate FiO2 01/30/23 11:17 36.6 81 18 138/80 (99) 98 Nasal Cannula 2.00 Capillary Refill : Less Than 3 Seconds General Appearance: No Apparent Distress Respiratory: Lungs Clear, No Respiratory Distress Cardiovascular: Regular Rate, Rhythm, No Murmur Gastrointestinal: Normal Bowel Sounds, Soft Neurologic/Psychiatric: Alert, Oriented x3 Results/Procedures Lab Laboratory Tests 01/30/23 05:03 Patient resulted labs reviewed. Imaging: Reviewed Imaging Report Assessment/Plan Assessment and Plan Assess & Plan/Chief Complaint Severe sepsis due to cellulitis Lactic acidosis Shantel infection Vanc and Zosyn DC IVF as got fluid overloaded last night- responded well to lasix- resume home HCTZ Diflucan T2DM Sliding scale insulin Resume glipizide and pioglitazone HTN HLD Obesity Resume Metoprolol, HCTZ and Losartan DVT prophylaxis: BRIDGETTE Hall MD Jan 30, 2023 12:46
[2023-01-30] MEDS ORDERED: RT-ALBUTEROL SULF 2.5 MG/3 ML PRE-MIX VIAL INH NR (16:30)
[2023-01-30] MEDS ORDERED: RT-ALBUTEROL SULF 2.5 MG/3 ML PRE-MIX VIAL ONE (16:31)
[2023-01-30] MEDS ORDERED: TROUGH ORDER-PHARMACY XX ONE (17:00)
[2023-01-30] MEDS: glipiZIDE 5 MG TABLET PO SCH (17:07)
[2023-01-30] MEDS: RT-Ipratropium/Albuterol NEB 3 ML VIAL INH SCH ×2 (18:36→22:27)
[2023-01-30] MEDS: CELECOXIB 100 MG CAPSULE PO SCH (20:36)
[2023-01-30] MEDS ORDERED: CELECOXIB 400 MG PO SCH (21:00)
[2023-01-31] MEDS: FLUCONAZOLE 200 MG/NACL 100 ML (PRE-MIX) IV SCH (01:31)
[2023-01-31] MEDS: RT-Ipratropium/Albuterol NEB 3 ML VIAL INH SCH ×6 (02:11→21:33)
[2023-01-31 04:01] VITALS: BP 148/83
[2023-01-31] MEDS: VANCOMYCIN 1 GM/NS 250 ML IVPB IV SCH ×4 (04:38→17:38)
[2023-01-31] MEDS: inSUlin ASPART 1 UNIT/0.01 ML (PER UNIT) SC SCH ×4 (05:34→20:58)
[2023-01-31] MEDS: PIPERACILLIN SODIUM/TAZOBACTAM 4.5 GM in NS (IVPB) 100 ML 100 ML IV SCH ×3 (05:48→21:20)
[2023-01-31 05:57] LABS: BASOPHILS # (AUTO) 0.1 10^3/uL (0.0-0.1); BASOPHILS % (AUTO) 1 % (0-10); EOSINOPHILS # (AUTO) 0.5 10^3/uL (0.0-0.3); EOSINOPHILS % (AUTO) 4 % (0-10); HEMATOCRIT 27 % (35-52); HEMOGLOBIN 8.5 g/dL (11.5-16.0); LYMPHOCYTES # (AUTO) 1.5 10^3/uL (1.0-4.0); LYMPHOCYTES % (AUTO) 11 % (12-44); MEAN CORPUSCULAR HEMOGLOBIN 26 pg (25-34); MEAN CORPUSCULAR HGB CONC 31 g/dL (32-36); MEAN CORPUSCULAR VOLUME 84 fL (80-99); MEAN PLATELET VOLUME 10.1 fL (9.0-12.2); MONOCYTES # (AUTO) 0.9 10^3/uL (0.0-1.0); MONOCYTES % (AUTO) 7 % (0-12); NEUTROPHILS # (AUTO) 10.6 10^3/uL (1.8-7.8); NEUTROPHILS % (AUTO) 78 % (42-75); PLATELET COUNT 282 10^3/uL (130-400); WHITE BLOOD COUNT 13.6 10^3/uL (4.3-11.0)
[2023-01-31 06:11] LABS: ALBUMIN 3.3 GM/DL (3.2-4.5); BILIRUBIN,TOTAL 0.4 MG/DL (0.1-1.0); CALCIUM 8.6 MG/DL (8.5-10.1); CREATININE SERUM 0.69 MG/DL (0.60-1.30); TOTAL PROTEIN 6.5 GM/DL (6.4-8.2)
[2023-01-31 07:17] VITALS: BP 171/78
[2023-01-31] MEDS: NYSTATIN CREAM (MYCOSTATIN) 30 GM TUBE TP SCH ×3 (08:14→19:56)
[2023-01-31] MEDS: LOSARTAN 100 MG TABLET PO SCH (08:14)
[2023-01-31] MEDS ORDERED: PANTOPRAZOLE 40 MG (PROTONIX) TAB PO ONE (11:00)
[2023-01-31] MEDS ORDERED: CALCIUM CARBONATE 500 MG CHEW TABLET PO PRN (11:00)
[2023-01-31 11:17] VITALS: BP 165/79
--- NOTE | 2023-01-31 11:31 | Progress Note - Hospitalist ---
Subjective HPI/CC On Admission Date Seen by Provider: Jan 31, 2023 Azeb Elliott is a 62 year old female with PMH HTN, T2DM, HLD, obesity, who presented with malaise. She reports that she started feeling sick yesterday. She had fevers and chills. She had nausea. She did not have a good appetite. She was feeling weak. She noticed her leg was getting red once she got to the ER. She hs having some swelling and pain. She says her leg is warm. She has some open wounds on her proximal, dorsal foot. She has been having issues with a fungal infection. She denies shortness of breath and cough. She denies chest pain. She denies dysuria. Subjective/Events-last exam Pt reports feeling ok today. Had a rough afternoon but feeling better today. Only complaint today is heartburn and requested PPI. Focused Exam Lactate Level 01/28/23 20:05: Lactic Acid Level 2.57*H 01/28/23 23:02: Lactic Acid Level 2.24*H 01/29/23 05:20: Lactic Acid Level 1.38 Time of Focused Exam: 21:10 Objective Exam Vital Signs Vital Signs Date Time Temp Pulse Resp B/P (MAP) Pulse Ox O2 Delivery O2 Flow Rate FiO2 01/31/23 11:17 36.4 104 18 165/79 (107) 92 Nasal Cannula 1.00 Capillary Refill : Less Than 3 Seconds General Appearance: No Apparent Distress, Obese Respiratory: Lungs Clear, No Respiratory Distress Cardiovascular: Regular Rate, Rhythm, No Murmur Extremity: Other (erythema improving- less red at edges and well within demarcation, still some warmth on lower part) Neurologic/Psychiatric: Alert, Oriented x3 Results/Procedures Lab Laboratory Tests 01/31/23 05:23 Patient resulted labs reviewed. Imaging: Reviewed Imaging Report Assessment/Plan Assessment and Plan Assess & Plan/Chief Complaint Severe sepsis due to cellulitis Lactic acidosis Shantel infection Vanc and Zosyn- continue IV abx as was still fevering yesterday afternoon Diflucan T2DM Sliding scale insulin Continue glipizide and pioglitazone HTN HLD Obesity Continue Metoprolol, HCTZ and Losartan DVT prophylaxis: BRIDGETTE Hall MD Jan 31, 2023 11:30
[2023-01-31] MEDS ORDERED: BENZOCAINE 20% MM PRN (13:30)
--- NOTE | 2023-01-31 14:22 | Physical Therapy Evaluation ---
PT Evaluation-General Medical Diagnosis Admission Date Jan 28, 2023 at 23:19 Medical Diagnosis: Malaise Onset Date: Jan 29, 2023 Therapy Diagnosis Therapy Diagnosis: Gait deficit Height/Weight Height (Feet): 5 Height (Inches): 2.00 Weight (Pounds): 175 Weight (Ounces): 0.0 Precautions Precautions/Isolations: Fall Prevention, Standard Precautions Weight Bear Status Right Lower Extremity: Right Full Weight Bearing Left Lower Extremity: Left Full Weight Bearing Referral Physician: Dr. Dempsey Reason for Referral: Evaluation/Treatment Medical History Reviewed History: Yes Social History Home: Single Level Current Living Status: Spouse Entry Into Home: Stairs With Railing PT Steps Into Home: 2 Prior Prior Level of Function SCALE: Activities may be completed with or without assistive devices. 1-Czeshjkoqi-acehtkz completes the activity by him/herself with no assistance from a helper. 5-Set-up or Clean-up Assistance-helper sets up or cleans up; patient completes activity. [place] assists only prior to or following the activity. 4-Supervision or Touching Assistance-helper provides verbal cues and/or touchin g/steadying and/or contact guard assistance as patient completes activity. Assistance may be provided throughout the activity or intermittently. 3-Partial/Moderate Assistance-helper does LESS THAN HALF the effort. [place] lifts, holds or supports trunk or limbs, but provides less than half the effort. 2-Substantial/Maximal Assistance-helper does MORE THAN HALF the effort. [place] lifts or holds trunk or limbs and provides more than half the effort. 9-Hgbxnxezp-aweasu does ALL the effort. Patient does none of the effort to complete the activity. Or, the assistance of 2 or more helpers is required for the patient to complete the activity. If activity was not attempted, code reason: 7-Patient Refused. 9-Not Applicable-not attempted and the patient did not perform the activity before the current illness, exacerbation or injury. 10-Not Attempted due to Environmental Limitations-(lack of equipment, weather restraints, etc.). 88-Not Attempted due to Medical Conditions or Safety Concerns. Bed Mobility: 6 Transfers (B,C,W/C): 6 Gait: 6 Stairs: 6 Indoor Mobility (Ambulation): Independent Stairs: Independent Prior Devices Use: None PT Evaluation-Current Subjective Patient lying supine in bed upon PT arrival, in the room, patient agreeable to treatment. Patient rates pain at 0/10 currently. Objective Patient Orientation: Person, Place, Time, Situation Attachments: Oxygen, IV ROM/Strength ROM Lower Extremities WFLs BLEs all planes Strength Lower Extremities 4-/5 BLEs all planes. Sensory Vision: Functional Hearing: Functional Transfers Roll Left to Right (QC): 4 Sit to Lying (QC): 4 Lying to Sitting/Side of Bed(Q: 4 Sit to Stand (QC): 4 Chair/Uth-av-Wtpas Xfer(QC): 4 Gait Does the Patient Walk?: Yes Mode of Locomotion: Walk Anticipated Mode of Locomotion: Walk Gait Assistive Device: None Balance Sitting Static: Good Sitting Dynamic: Good Standing Static: Fair Standing Dynamic: Fair Assessment/Needs Patient performs all bed mobility and transfers with SBA. Patient ambulates 120 feet with no AD, with SBA and verbal cues for posture, conservation of energy. Patient in bed post treatment with all needs met, nursing notified, call light in reach. Rehab Potential: Fair PT [facility] Goals Dental Laboratory Worker Goals PT [facility] Goals Time Frame: Feb 22, 2023 Roll Left & Right (QC): 6 Sit to Lying (QC): 6 Lying-Sitting on Side/Bed(QC): 6 Sit to Stand (QC): 6 Chair/Gjv-gw-Ufywn Xfer(QC): 6 Toilet Transfer (QC): 6 Does the Patient Walk: Yes Walk 10 feet (QC): 6 Walk 50ft with 2 Turns (QC): 6 Walk 150 ft (QC): 6 1 Step (curb) (QC): 6 4 Steps (QC): 6 PT Plan Problem List Problem List: Activity Tolerance, Functional Strength, Safety, Balance, Gait, Transfer, Bed Mobility, ROM Treatment/Plan Treatment Plan: Continue Plan of Care Treatment Plan: Bed Mobility, Education, Functional Activity Cj, Functional Strength, Group Therapy, Gait, Safety, Therapeutic Exercise, Transfers Treatment Duration: Feb 24, 2023 Frequency: 6 times per week Estimated Hrs Per Day: .25 hour per day Patient and/or Family Agrees t: Yes Safety Risks/Education Patient Education: Gait Training, Transfer Techniques Teaching Recipient: Patient Teaching Methods: Demonstration, Discussion Response to Teaching: Verbalize Understanding, Return Demonstration Time Time In: 1345 Time Out: 1400 DATE: Jan 31, 2023 Total Billed Treatment Time: 15 Total Billed Treatment Visit, EVM TOCCI,CAMMIE PT Jan 31, 2023 14:22
--- NOTE | 2023-01-31 15:04 | Occupational Therapy Eval ---
OT Evaluation-General/PLF Medical Diagnosis Admission Date Jan 28, 2023 at 23:19 Medical Diagnosis: Malaise Onset Date: Jan 29, 2023 Therapy Diagnosis Therapy Diagnosis: weakness Height/Weight Height (Feet): 5 Height (Inches): 2.00 Weight (Pounds): 175 Weight (Ounces): 0.0 Precautions Precautions/Isolations: Fall Prevention, Standard Precautions Weight Bear Status Weight Bearing Restriction: Full Weight Bearing Referral Physician: Dr. Dempsey Referral Reason: Self Care, Evaluation/Treatment Medical History Additional Medical History 62 year old female with PMH HTN, T2DM, HLD, obesity, who presented with malaise. She reports that she started feeling sick yesterday. She had fevers and chills. She had nausea. She did not have a good appetite. She was feeling weak. She noticed her leg was getting red once she got to the ER. Current History 1 liter 02 NC, does not use 02 at home Social History Home: Single Level Current Living Status: Spouse Entry Into Home: Stairs With Railing Steps Into Home: 2 ADL-Prior Level of Function SCALE: Activities may be completed with or without assistive devices. 0-Tgfptgyxty-fzbmhnq completes the activity by him/herself with no assistance from a helper. 5-Set-up or Clean-up Assistance-helper sets up or cleans up; patient completes activity. [place] assists only prior to or following the activity. 4-Supervision or Touching Assistance-helper provides verbal cues and/or touching/steadying and/or contact guard assistance as patient completes activity. Assistance may be provided throughout the activity or intermittently. 3-Partial/Moderate Assistance-helper does LESS THAN HALF the effort. [place] lifts, holds or supports trunk or limbs, but provides less than half the effort. 2-Substantial/Maximal Assistance-helper does MORE THAN HALF the effort. [place] lifts or holds trunk or limbs and provides more than half the effort. 3-Imrncwyii-cgtyxf does ALL the effort. Patient does none of the effort to complete the activity. Or, the assistance of 2 or more helpers is required for the patient to complete the activity. If activity was not attempted, code reason: 7-Patient Refused. 9-Not Applicable-not attempted and the patient did not perform the activity before the current illness, exacerbation or injury. 10-Not Attempted due to Environmental Limitations-(lack of equipment, weather restraints, etc.). 88-Not Attempted due to Medical Conditions or Safety Concerns. ADL PLOF Comments Does not use ADS, however does compensate for reduced BUE ROM deficits Self Care: Independent Functional Cognition: Independent Drive Self: Yes OT Current Status Subjective Agreeable to OT, spouse in room Pain Numeric Pain Scale: 4 Mental Status/Objective Patient Orientation: Person, Place, Time, Situation Current Glasses/Contacts: Yes Hand Dominance: Right Upper Extremity ROM limited 45 degree, flexion and abduction, unable to reach behind back midline Upper Extremity Strength +2/5 BUE ADL-Treatment Eating (QC): 6 Oral Hygiene (QC): 5 Shower/Bathe Self (QC): 88 Upper Body Dressing (QC): 4 Lower Body Dressing (QC): 4 On/Off Footwear (QC): 4 Toileting Hygiene (QC): 4 Education OT Patient Education: Correct positioning, Energy conservation, Home exercise program, Modified ADL techniques, Progress toward Goal/Update tx plan, Purpose of tx/functional activities, Reviewed precautions, Rehab process, Safety issues, Transfer techniques, Use of adapted equipment Teaching Recipient: Patient Teaching Methods: Demonstration, Discussion Response to Teaching: Verbalize Understanding OT Halfway Goals Teacher Kindergarten Goals Shower/Bathe Self (QC): 6 Upper Body Dressing (QC): 6 Lower Body Dressing (QC): 6 On/Off Footwear (QC): 6 1=Demonstrate adherence to instructed precautions during ADL tasks. 2=Patient will verbalize/demonstrate understanding of assistive devices/modifications for ADL. 3=Patient will improve strength/tolerance for activity to enable patient to perform ADL's. OT Education/Plan Problem List/Assessment Assessment: Decreased Activ Tolerance, Decreased UE Strength, Impaired Coordination, Impaired Funct Balance, Impaired Self-Care Skills, Restricted Funct UE ROM Discharge Recommendations Plan/Recommendations: Continue POC Treatment Plan/Plan of Care Treatment,Training & Education: Yes Patient would benefit from OT for education, treatment and training to promote independence in ADL's, mobility, safety and/or upper extremity function for ADL's. Plan of Care: ADL Retraining, Cognitive Retraining, Concurrent Therapy, Functional Mobility, Group Exercise/Act as Ind, UE Funct Exercise/Act Treatment Duration: Feb 09, 2023 Frequency: 3 times per week (3-5 times per week) Estimated Hrs Per Day: .25 hour per day Agreement: Yes Rehab Potential: Fair Time Start Time: 13:30 Stop Time: 13:49 DATE: Jan 31, 2023 Total Time Billed (hr/min): 19 Billed Treatment Time EVM 19 ALY SANTAMARIA OT Jan 31, 2023 15:04
[2023-01-31 15:52] VITALS: BP 143/69
[2023-01-31] MEDS: glipiZIDE 5 MG TABLET PO SCH (17:13)
[2023-01-31 19:49] VITALS: BP 157/72
[2023-01-31] MEDS: CELECOXIB 100 MG CAPSULE PO SCH (19:54)
[2023-01-31 23:11] VITALS: BP 156/84
[2023-02-01] MEDS: RT-Ipratropium/Albuterol NEB 3 ML VIAL INH SCH ×4 (02:04→21:24)
[2023-02-01 03:33] VITALS: BP 145/79
[2023-02-01] MEDS: VANCOMYCIN 1 GM/NS 250 ML IVPB IV SCH ×4 (04:07→17:51)
[2023-02-01 05:18] LABS: BASOPHILS # (AUTO) 0.1 10^3/uL (0.0-0.1); BASOPHILS % (AUTO) 1 % (0-10); EOSINOPHILS # (AUTO) 0.8 10^3/uL (0.0-0.3); EOSINOPHILS % (AUTO) 7 % (0-10); HEMATOCRIT 26 % (35-52); HEMOGLOBIN 8.3 g/dL (11.5-16.0); LYMPHOCYTES # (AUTO) 1.3 10^3/uL (1.0-4.0); LYMPHOCYTES % (AUTO) 12 % (12-44); MEAN CORPUSCULAR HEMOGLOBIN 27 pg (25-34); MEAN CORPUSCULAR HGB CONC 32 g/dL (32-36); MEAN CORPUSCULAR VOLUME 83 fL (80-99); MEAN PLATELET VOLUME 9.6 fL (9.0-12.2); MONOCYTES # (AUTO) 1.1 10^3/uL (0.0-1.0); MONOCYTES % (AUTO) 10 % (0-12); NEUTROPHILS # (AUTO) 8.2 10^3/uL (1.8-7.8); NEUTROPHILS % (AUTO) 71 % (42-75); PLATELET COUNT 305 10^3/uL (130-400); WHITE BLOOD COUNT 11.5 10^3/uL (4.3-11.0)
[2023-02-01] MEDS: inSUlin ASPART 1 UNIT/0.01 ML (PER UNIT) SC SCH ×4 (05:39→20:21)
[2023-02-01 05:42] LABS: ALBUMIN 3.2 GM/DL (3.2-4.5); BILIRUBIN,TOTAL 0.5 MG/DL (0.1-1.0); CALCIUM 8.9 MG/DL (8.5-10.1); CREATININE SERUM 0.74 MG/DL (0.60-1.30); MAGNESIUM 1.4 MG/DL (1.6-2.4); POTASSIUM 2.8 MMOL/L (3.6-5.0); TOTAL PROTEIN 6.4 GM/DL (6.4-8.2)
[2023-02-01] MEDS: PIPERACILLIN SODIUM/TAZOBACTAM 4.5 GM in NS (IVPB) 100 ML 100 ML IV SCH (05:48)
[2023-02-01] MEDS ORDERED: POTASSIUM CHLORIDE 20 MEQ TABLET PO ONE (07:30)
[2023-02-01 07:54] VITALS: BP 155/86
[2023-02-01] MEDS: PANTOPRAZOLE 40 MG (PROTONIX) TAB PO SCH (07:58)
[2023-02-01] MEDS: LOSARTAN 100 MG TABLET PO SCH (07:59)
[2023-02-01] MEDS: NYSTATIN CREAM (MYCOSTATIN) 30 GM TUBE TP SCH ×3 (07:59→20:11)
--- NOTE | 2023-02-01 09:44 | Occupational Ther Daily Note ---
OT Current Status-Daily Note Subjective Resting supine in bed, agreeable to OT Pain Numeric Pain Scale: 4 Location: Right Location Body Site: Calf Comment: edema and reddness improving slowly Mental Status/Objective Patient Orientation: Person, Place, Time, Situation Attachments: IV ADL-Treatment slip on slippers and additional gown as robe Therapy Code Descriptions/Definitions Functional [place] Measure: 0=Not Assessed/NA 4=Minimal Assistance 1=Total Assistance 5=Supervision or Setup 2=Maximal Assistance 6=Modified [place] 3=Moderate Assistance 7=Complete IndependenceSCALE: Activities may be completed with or without assistive devices. 0-Qlpuftavju-rsapdxl completes the activity by him/herself with no assistance from a helper. 5-Set-up or Clean-up Assistance-helper sets up or cleans up; patient completes activity. [place] assists only prior to or following the activity. 4-Supervision or Touching Assistance-helper provides verbal cues and/or touching/steadying and/or contact guard assistance as patient completes activity. Assistance may be provided throughout the activity or intermittently. 3-Partial/Moderate Assistance-helper does LESS THAN HALF the effort. [place] lifts, holds or supports trunk or limbs, but provides less than half the effort. 2-Substantial/Maximal Assistance-helper does MORE THAN HALF the effort. [place] lifts or holds trunk or limbs and provides more than half the effort. 4-Adgjfjlnf-qmhlqw does ALL the effort. Patient does none of the effort to complete the activity. Or, the assistance of 2 or more helpers is required for the patient to complete the activity. If activity was not attempted, code reason: 7-Patient Refused. 9-Not Applicable-not attempted and the patient did not perform the activity before the current illness, exacerbation or injury. 10-Not Attempted due to Environmental Limitations-(lack of equipment, weather restraints, etc.). 88-Not Attempted due to Medical Conditions or Safety Concerns. Eating (QC): 6 Oral Hygiene (QC): 5 (standing w/ FWW, flexed forward posture, VCs to correct) Shower/Bathe Self (QC): 7 Upper Body Dressing (QC): 6 Lower Body Dressing (QC): 6 On/Off Footwear: 6 Toileting Hygiene (QC): 6 Toilet Transfer (QC): 6 Other Treatment Safe route planning, navigation w/ IV pole Education OT Patient Education: Exercise program, Modified ADL techniques, Progress towar d Goal/Update tx plan, Purpose of tx/functional activities, Reviewed precautions, Rehab process, Safety issues, Transfer techniques, Use of adapted equipment Teaching Recipient: Patient Teaching Methods: Demonstration Response to Teaching: Verbalize Understanding, Return Demonstration OT Prison Goals [place] Goals Shower/Bathe Self (QC): 6 Upper Body Dressing (QC): 6 Lower Body Dressing (QC): 6 On/Off Footwear (QC): 6 1=Demonstrate adherence to instructed precautions during ADL tasks. 2=Patient will verbalize/demonstrate understanding of assistive devices/modifications for ADL. 3=Patient will improve strength/tolerance for activity to enable patient to perform ADL's. OT Education/Plan Problem List/Assessment Assessment: Decreased Activ Tolerance Discharge Recommendations Plan/Recommendations: Discharge/Goals Met Treatment Plan/Plan of Care Patient would benefit from OT for education, treatment and training to promote independence in ADL's, mobility, safety and/or upper extremity function for ADL's. Plan of Care: ADL Retraining, Cognitive Retraining, Concurrent Therapy, Functional Mobility, Group Exercise/Act as Ind, UE Funct Exercise/Act Treatment Duration: Feb 09, 2023 Frequency: 3 times per week (3-5 times per week) Estimated Hrs Per Day: .25 hour per day Agreement: Yes Rehab Potential: Fair Time Start Time: 08:50 Stop Time: 09:08 DATE: Feb 01, 2023 Total Time Billed (hr/min): 18 Billed Treatment Time ADL 18 min ALY SANTAMARIA OT Feb 01, 2023 09:44
--- NOTE | 2023-02-01 09:51 | Physical Therapy Daily Note ---
PT Daily Note-Current Subjective Patient agrees to PT. Pain Section J - Health Conditions 1. Rarely or not at all 2. Occasionally 3. Frequently 4. Almost constantly 8. Unable to answer Pain Effect on Sleep: 1 Pain Interference with Therapy: 1 Pain Interference w/Day-to-Day: 1 Mental Status Patient Orientation: Normal For Age Attachments: Oxygen, IV Transfers SCALE: Activities may be completed with or without assistive devices. 9-Xicadlssbu-vaurouj completes the activity by him/herself with no assistance from a helper. 5-Set-up or Clean-up Assistance-helper sets up or cleans up; patient completes activity. [place] assists only prior to or following the activity. 4-Supervision or Touching Assistance-helper provides verbal cues and/or touching/steadying and/or contact guard assistance as patient completes activity. Assistance may be provided throughout the activity or intermittently. 3-Partial/Moderate Assistance-helper does LESS THAN HALF the effort. [place] lifts, holds or supports trunk or limbs, but provides less than half the effort. 2-Substantial/Maximal Assistance-helper does MORE THAN HALF the effort. [place] lifts or holds trunk or limbs and provides more than half the effort. 6-Bzviwgtzn-bcuawf does ALL the effort. Patient does none of the effort to complete the activity. Or, the assistance of 2 or more helpers is required for the patient to complete the activity. If activity was not attempted, code reason: 7-Patient Refused. 9-Not Applicable-not attempted and the patient did not perform the activity before the current illness, exacerbation or injury. 10-Not Attempted due to Environmental Limitations-(lack of equipment, weather restraints, etc.). 88-Not Attempted due to Medical Conditions or Safety Concerns. Lying to Sitting/Side of Bed(Q: 6 Sit to Stand (QC): 6 Chair/Prb-qp-Hgeie Xfer(QC): 6 Weight Bearing Right Lower Extremity: Right Full Weight Bearing Left Lower Extremity: Left Full Weight Bearing Gait Training Distance: 250' Walk 10 feet (QC): 5 Walk 50 ft with 2 Turns(QC): 5 Walk 150 ft (QC): 5 Gait Assistive Device: FWW slow, kyphotic posture Assessment Patient tolerated treatment well and is up in recliner with needs met. Patient is currently at [facility] with all gross motor skills and does not require continued skilled PT. PT to dismiss patient from services at this time. PT Associate Partner Goals Shelter Goals PT Associate Partner Goals Time Frame: Feb 22, 2023 Roll Left & Right (QC): 6 Sit to Lying (QC): 6 Lying-Sitting on Side/Bed(QC): 6 Sit to Stand (QC): 6 Chair/Ltn-zl-Ejrsm Xfer(QC): 6 Toilet Transfer (QC): 6 Does the Patient Walk: Yes Walk 10 feet (QC): 6 Walk 50ft with 2 Turns (QC): 6 Walk 150 ft (QC): 6 1 Step (curb) (QC): 6 4 Steps (QC): 6 PT Plan Treatment/Plan Treatment Plan: Continue Plan of Care, Discontinue PT Treatment Plan: Bed Mobility, Education, Functional Activity Cj, Functional Strength, Group Therapy, Gait, Safety, Therapeutic Exercise, Transfers Treatment Duration: Feb 24, 2023 Frequency: 6 times per week Estimated Hrs Per Day: .25 hour per day Patient and/or Family Agrees t: Yes Time Time In: 845 Time Out: 857 DATE: Feb 01, 2023 Total Billed Treatment Time: 12 Total Billed Treatment 1 visit FA 12 min TALIB BUSH PT Feb 01, 2023 09:51
--- NOTE | 2023-02-01 10:35 | Progress Note - Hospitalist ---
Subjective HPI/CC On Admission Date Seen by Provider: Feb 01, 2023 Azeb Elliott is a 62 year old female with PMH HTN, T2DM, HLD, obesity, who presented with malaise. She reports that she started feeling sick yesterday. She had fevers and chills. She had nausea. She did not have a good appetite. She was feeling weak. She noticed her leg was getting red once she got to the ER. She hs having some swelling and pain. She says her leg is warm. She has some open wounds on her proximal, dorsal foot. She has been having issues with a fungal infection. She denies shortness of breath and cough. She denies chest pain. She denies dysuria. Subjective/Events-last exam Pt reports doing better today. Swelling still present but redness better. No complaints. Focused Exam Time of Focused Exam: 21:10 Objective Exam Vital Signs Vital Signs Date Time Temp Pulse Resp B/P (MAP) Pulse Ox O2 Delivery O2 Flow Rate FiO2 02/01/23 08:00 Nasal Cannula 1.00 02/01/23 07:54 36.5 88 18 155/86 (109) 94 Capillary Refill : Less Than 3 Seconds General Appearance: No Apparent Distress, Obese Cardiovascular: Regular Rate, Rhythm, No Murmur Gastrointestinal: Normal Bowel Sounds, Soft Neurologic/Psychiatric: Alert, Oriented x3 Results/Procedures Lab Laboratory Tests 02/01/23 05:09 Patient resulted labs reviewed. Imaging: Reviewed Imaging Report Assessment/Plan Assessment and Plan Assess & Plan/Chief Complaint Severe sepsis due to cellulitis Lactic acidosis Shantel infection Continue Vanc- DC Zosyn as was febrile until vanc increased Diflucan Get usg to rule out underlying DVT T2DM Sliding scale insulin Continue glipizide and pioglitazone HTN HLD Obesity Continue Metoprolol, HCTZ and Losartan DVT prophylaxis: BRIDGETTE Hall MD Feb 01, 2023 10:35
--- NOTE | 2023-02-01 11:46 | Diagnostic Imaging Report ---
INDICATION: Right leg swelling. COMPARISON: None. TECHNIQUE: Duplex, albarran-scale and color-flow imaging of the right lower extremity venous system was performed. FINDINGS: The common femoral vein, superficial femoral vein, profunda femoris, and popliteal veins are normal. These vessels show normal compressibility, color flow, and Doppler augmentation. The deep calf veins, although not very well seen, demonstrate no distinct intraluminal thrombus. IMPRESSION: Negative venous Doppler of the right lower extremity. Dictated by: Dictated on workstation # [id number]
[2023-02-01 12:00] VITALS: BP 155/93
[2023-02-01 15:25] VITALS: BP 142/81
[2023-02-01] MEDS ORDERED: TROUGH ORDER-PHARMACY XX NR (16:00)
[2023-02-01] MEDS: glipiZIDE 5 MG TABLET PO SCH (17:51)
[2023-02-01 19:21] VITALS: BP 174/88
[2023-02-01] MEDS ORDERED: NS IV 500 ML 500 ML IV PRN (19:30)
[2023-02-01] MEDS: MAGNESIUM 1 GM/100 ML IVPB 100 ML IV SCH ×2 (20:09→21:25)
[2023-02-01] MEDS: ENOXAPARIN 40 MG/0.4 ML SYRINGE SC SCH (20:09)
[2023-02-01] MEDS: CELECOXIB 100 MG CAPSULE PO SCH (20:10)
[2023-02-01] MEDS: IBUPROFEN 800 MG TABLET PO PRN (20:21)
[2023-02-01] MEDS: ACETAMINOPHEN 500 MG TABLET PO PRN (20:21)
[2023-02-01 23:25] VITALS: BP 136/63
[2023-02-02 03:09] VITALS: BP 165/81
[2023-02-02] MEDS: RT-Ipratropium/Albuterol NEB 3 ML VIAL INH SCH ×4 (03:22→21:21)
[2023-02-02] MEDS: VANCOMYCIN 1 GM/NS 250 ML IVPB IV SCH ×4 (04:02→16:50)
[2023-02-02 05:00] LABS: BASOPHILS # (AUTO) 0.1 10^3/uL (0.0-0.1); BASOPHILS % (AUTO) 1 % (0-10); EOSINOPHILS # (AUTO) 0.9 10^3/uL (0.0-0.3); EOSINOPHILS % (AUTO) 9 % (0-10); HEMATOCRIT 28 % (35-52); HEMOGLOBIN 8.7 g/dL (11.5-16.0); LYMPHOCYTES # (AUTO) 1.7 10^3/uL (1.0-4.0); LYMPHOCYTES % (AUTO) 16 % (12-44); MEAN CORPUSCULAR HEMOGLOBIN 26 pg (25-34); MEAN CORPUSCULAR HGB CONC 32 g/dL (32-36); MEAN CORPUSCULAR VOLUME 83 fL (80-99); MEAN PLATELET VOLUME 9.6 fL (9.0-12.2); MONOCYTES % (AUTO) 9 % (0-12); NEUTROPHILS # (AUTO) 7.1 10^3/uL (1.8-7.8); NEUTROPHILS % (AUTO) 65 % (42-75); PLATELET COUNT 323 10^3/uL (130-400)
[2023-02-02 05:13] LABS: ALBUMIN 3.3 GM/DL (3.2-4.5); POTASSIUM 2.9 MMOL/L (3.6-5.0)
[2023-02-02 05:14] LABS: CALCIUM 9.3 MG/DL (8.5-10.1)
[2023-02-02 05:17] LABS: BILIRUBIN,TOTAL 0.5 MG/DL (0.1-1.0)
[2023-02-02 05:19] LABS: CREATININE SERUM 0.75 MG/DL (0.60-1.30)
[2023-02-02 05:22] LABS: MAGNESIUM 1.6 MG/DL (1.6-2.4)
[2023-02-02] MEDS: inSUlin ASPART 1 UNIT/0.01 ML (PER UNIT) SC SCH ×4 (05:29→20:19)
[2023-02-02] MEDS: MAGNESIUM 1 GM/100 ML IVPB 100 ML IV SCH ×4 (05:31→09:06)
[2023-02-02] MEDS: POTASSIUM CL 10MEQ/50ML IVPB 50 ML IV SCH (07:12)
[2023-02-02] MEDS: POTASSIUM CHLORIDE 20 MEQ TABLET PO SCH (07:14)
[2023-02-02 07:40] VITALS: BP 170/82
[2023-02-02] MEDS: LOSARTAN 100 MG TABLET PO SCH (08:15)
[2023-02-02] MEDS: PANTOPRAZOLE 40 MG (PROTONIX) TAB PO SCH (08:15)
[2023-02-02] MEDS: NYSTATIN CREAM (MYCOSTATIN) 30 GM TUBE TP SCH ×3 (08:17→20:20)
[2023-02-02] MEDS ORDERED: POTASSIUM CHLORIDE 20 MEQ TABLET PO ONE ×2 (09:00→13:00)
[2023-02-02 11:11] VITALS: BP 173/87
[2023-02-02] MEDS: SPIRONOLACTONE 25 MG (ALDACTONE) TAB PO SCH (11:28)
--- NOTE | 2023-02-02 12:34 | Progress Note - Hospitalist ---
Subjective HPI/CC On Admission Date Seen by Provider: Feb 02, 2023 Azeb Elliott is a 62 year old female with PMH HTN, T2DM, HLD, obesity, who presented with malaise. She reports that she started feeling sick yesterday. She had fevers and chills. She had nausea. She did not have a good appetite. She was feeling weak. She noticed her leg was getting red once she got to the ER. She hs having some swelling and pain. She says her leg is warm. She has some open wounds on her proximal, dorsal foot. She has been having issues with a fungal infection. She denies shortness of breath and cough. She denies chest pain. She denies dysuria. Subjective/Events-last exam Pt reports feeling better today but had a fever again last night. Concerned about going home and having to take care of her and 16yo grandson and care for herself. Offered another night in the hospital before DC. Focused Exam Time of Focused Exam: 21:10 Objective Exam Vital Signs Vital Signs Date Time Temp Pulse Resp B/P (MAP) Pulse Ox O2 Delivery O2 Flow Rate FiO2 02/02/23 11:11 36.7 90 18 173/87 (115) 94 Room Air 02/02/23 08:19 1.00 02/01/23 20:19 21 Capillary Refill : Less Than 3 Seconds General Appearance: No Apparent Distress, Chronically ill, Obese Cardiovascular: Regular Rate, Rhythm, No Murmur Gastrointestinal: Normal Bowel Sounds Extremity: Swelling (persistent on right leg), Other (erythema improving, warmth improving) Neurologic/Psychiatric: Alert, Oriented x3 Results/Procedures Lab Laboratory Tests 02/02/23 04:53 Patient resulted labs reviewed. Imaging: Reviewed Imaging Report Assessment/Plan Assessment and Plan Assess & Plan/Chief Complaint Severe sepsis due to cellulitis Lactic acidosis Shantel infection Continue Vanc Diflucan No DVT on doppler Spoke with Dr Madison to update him on admission T2DM Sliding scale insulin Continue glipizide and pioglitazone HTN HLD Obesity Continue Metoprolol, HCTZ and Losartan DVT prophylaxis: BRIDGETTE Hall MD Feb 02, 2023 12:34
--- NOTE | 2023-02-02 13:48 | D/C HH Face to Face Order ---
D/C Face to Face Orders Instructions for Patient Via [facility], Patient Instructions/FollowUp: Please continue to take your medications as written. Please follow up with your primary care doctor to follow up this hospital stay. Physician to follow Patient: Dr Madison Discharge Diet for Home: No Restrictions Patient Data-Allergies,Ht & Wt Patient Allergies: Coded Allergies: No Allergy Information Available (Unverified , 06/04/14) Height (Feet): 5 Height (Inches): 2.00 Weight (Pounds): 175 Weight (Ounces): 0.0 Home Health Need/Face to Face Date of Face to Face: Feb 02, 2023 Clinical Findings: Generalized weakness and fatigue, Instability I have seen Pt [id number]: Yes Discharged To: Home Diagnosis/Conditions: Cellulitis Patient is Homebound due to: Muscle weakness Homebound Status Due to the above stated illness, injury or surgical procedure (medical condition or diagnosis) and associated clinical findings, the patient is homebound because of his/her inability to leave home except with aid of a supportive device and/or person AND leaving the home requires a considerable and taxing effort or is medically contraindicated. Pt req the following assistanc: Aid of another person, Cane Home Health Nursing Orders Home Health Services Order: Nursing Services, Automatic Mounter-Evaluate & Treat, Physical Therapy-Evaluate & Treat Home Health Infusion Therapy Line Start Date: Jan 28, 2023 Therapy Orders Therapy Orders: OT (must have SN or PT order), Physical Therapy Therapy Specific Orders: Eval assistive deivces, Teach enviro modifications/safety, Gait training, Increase strength/endurance Certify Stmt I certify that this patient is under my care and that I, a nurse practitioner or a physician; a help desk assistant working with me, had a face to face encounter that - meets the physician face to face encounter requirements with this patient as dated. BRIDGETTE ORR MD Feb 02, 2023 13:48
[2023-02-02 15:15] VITALS: BP 178/89
[2023-02-02] MEDS: glipiZIDE 5 MG TABLET PO SCH (17:55)
[2023-02-02] MEDS: RT-Ipratropium/Albuterol NEB 3 ML VIAL INH PRN (18:48)
[2023-02-02 19:16] VITALS: BP 182/91
[2023-02-02] MEDS: ENOXAPARIN 40 MG/0.4 ML SYRINGE SC SCH (20:17)
[2023-02-02] MEDS: CELECOXIB 100 MG CAPSULE PO SCH (20:19)
[2023-02-02] MEDS ORDERED: polyethylene glycoL POWDER 17 GM (MIRALAX) PACK PO PRN (20:45)
[2023-02-03] VITALS (7 sets, daily range): BP systolic 183–201; BP diastolic 86–100
[2023-02-03] MEDS: hydrALAZINE INJECTION 20 MG/ML VIAL IV PRN ×2 (01:22→17:12)
[2023-02-03] MEDS: VANCOMYCIN 1 GM/NS 250 ML IVPB IV SCH ×4 (05:11→17:04)
[2023-02-03 05:40] LABS: BASOPHILS # (AUTO) 0.1 10^3/uL (0.0-0.1); BASOPHILS % (AUTO) 1 % (0-10); EOSINOPHILS # (AUTO) 0.7 10^3/uL (0.0-0.3); EOSINOPHILS % (AUTO) 5 % (0-10); HEMATOCRIT 29 % (35-52); HEMOGLOBIN 9.4 g/dL (11.5-16.0); LYMPHOCYTES # (AUTO) 1.9 10^3/uL (1.0-4.0); LYMPHOCYTES % (AUTO) 14 % (12-44); MEAN CORPUSCULAR HEMOGLOBIN 26 pg (25-34); MEAN CORPUSCULAR HGB CONC 32 g/dL (32-36); MEAN CORPUSCULAR VOLUME 82 fL (80-99); MEAN PLATELET VOLUME 9.4 fL (9.0-12.2); MONOCYTES # (AUTO) 1.1 10^3/uL (0.0-1.0); MONOCYTES % (AUTO) 8 % (0-12); NEUTROPHILS # (AUTO) 9.4 10^3/uL (1.8-7.8); NEUTROPHILS % (AUTO) 71 % (42-75); PLATELET COUNT 396 10^3/uL (130-400); WHITE BLOOD COUNT 13.3 10^3/uL (4.3-11.0)
[2023-02-03 05:53] LABS: ALBUMIN 3.5 GM/DL (3.2-4.5)
[2023-02-03 05:54] LABS: POTASSIUM 3.5 MMOL/L (3.6-5.0)
[2023-02-03 05:55] LABS: CALCIUM 9.7 MG/DL (8.5-10.1)
[2023-02-03 05:56] LABS: TOTAL PROTEIN 7.3 GM/DL (6.4-8.2)
[2023-02-03 05:58] LABS: BILIRUBIN,TOTAL 0.6 MG/DL (0.1-1.0)
[2023-02-03 06:00] LABS: CREATININE SERUM 0.76 MG/DL (0.60-1.30)
[2023-02-03 06:03] LABS: MAGNESIUM 1.4 MG/DL (1.6-2.4)
[2023-02-03] MEDS ORDERED: POTASSIUM CHLORIDE 20 MEQ TABLET PO ONE (06:45)
[2023-02-03] MEDS: POTASSIUM CHLORIDE 20 MEQ TABLET PO SCH (06:47)
[2023-02-03] MEDS: MAGNESIUM 1 GM/100 ML IVPB 100 ML IV SCH ×6 (06:47→11:32)
[2023-02-03] MEDS: POTASSIUM CL 10MEQ/50ML IVPB 50 ML IV SCH (06:47)
[2023-02-03] MEDS: inSUlin ASPART 1 UNIT/0.01 ML (PER UNIT) SC SCH ×4 (06:56→21:47)
[2023-02-03] MEDS: SPIRONOLACTONE 25 MG (ALDACTONE) TAB PO SCH (08:40)
[2023-02-03] MEDS: NYSTATIN CREAM (MYCOSTATIN) 30 GM TUBE TP SCH ×3 (08:40→21:47)
[2023-02-03] MEDS: LOSARTAN 100 MG TABLET PO SCH (08:40)
[2023-02-03] MEDS: PANTOPRAZOLE 40 MG (PROTONIX) TAB PO SCH (08:40)
[2023-02-03] MEDS ORDERED: amLODIPine 5 MG TABLET PO NR (10:00)
[2023-02-03] MEDS: RT-Ipratropium/Albuterol NEB 3 ML VIAL INH SCH ×3 (10:10→19:56)
--- NOTE | 2023-02-03 10:35 | Progress Note - Hospitalist ---
Subjective HPI/CC On Admission Date Seen by Provider: Feb 03, 2023 Azeb Elliott is a 62 year old female with PMH HTN, T2DM, HLD, obesity, who presented with malaise. She reports that she started feeling sick yesterday. She had fevers and chills. She had nausea. She did not have a good appetite. She was feeling weak. She noticed her leg was getting red once she got to the ER. She hs having some swelling and pain. She says her leg is warm. She has some open wounds on her proximal, dorsal foot. She has been having issues with a fungal infection. She denies shortness of breath and cough. She denies chest pain. She denies dysuria. Subjective/Events-last exam Pt reports she's "going south today." When asked what she means she states her mag is lower and her BP is high. Otherwise she states she feels fine and is breathing better. Thinks her leg is less red as well. Focused Exam Time of Focused Exam: 21:10 Objective Exam Vital Signs Vital Signs Date Time Temp Pulse Resp B/P (MAP) Pulse Ox O2 Delivery O2 Flow Rate FiO2 02/03/23 10:10 94 Room Air 02/03/23 10:05 86 201/91 (127) 02/03/23 07:58 36.5 20 02/02/23 20:00 0.00 02/01/23 20:19 21 Capillary Refill : Less Than 3 Seconds General Appearance: No Apparent Distress, Chronically ill, Obese Respiratory: Lungs Clear (getting breathing treatment) Cardiovascular: Regular Rate, Rhythm, No Murmur Gastrointestinal: Normal Bowel Sounds, Soft Neurologic/Psychiatric: Alert, Oriented x3 Results/Procedures Lab Laboratory Tests 02/03/23 05:31 Patient resulted labs reviewed. Imaging: Reviewed Imaging Report Assessment/Plan Assessment and Plan Assess & Plan/Chief Complaint Severe sepsis due to cellulitis Lactic acidosis Shantel infection Continue Vanc- white count up slightly today- trend Completed Diflucan No DVT on doppler Consult general surgery- spoke with Dr Wade T2DM Sliding scale insulin- increase to SS B as was up into the 300s yesterday Continue glipizide and pioglitazone HTN HLD Obesity Continue Metoprolol and Losartan- added Aldactone as well and DC-ed HCTZ to help with kypokalemia Still quite hypertensive this AM so adding Amlodipine as well Hydralazine prn DVT prophylaxis: BRIDGETTE Hall MD Feb 03, 2023 10:35
--- NOTE | 2023-02-03 11:48 | Consultation - Surgery ---
SHELLIE NEGRO 02/03/23 1148: History of Present Illness History of Present Illness Patient Consulted On(adolfo/time) 02/03/23 11:43 Time Seen by Provider: 11:43 History of Present Illness 62F states that she px to the hospital on Sunday. She said she was sick to her stomach, but did not vomit. She had a "funny feeling" that all of a sudden hit her, so she came to the ER. She had a high fever. She denies having these "funny feeling" sx like this in the past. When she got to the ER she noticed her right leg was very red. She denies any pain, but felt a throbbing sensation. It intermittently swells and feels warm to the touch. She denies having sx of this in the past. She has had some b/l ankle swelling in the past that she attributed to walking. She has sensations of numbness and tingling in her feet and toes occasionally due to her diabetic neuropathy. Her leg is feeling tender currently and she can feel the warmth. She has been aware of the size of her leg swelling. She denies having a previous episode of cellulitis or previous episodes of leg swelling with this warmth. Allergies and Home Medications Allergies Coded Allergies: Sulfa (Sulfonamide Antibiotics) (Verified Allergy, Unknown, 02/03/23) diphenhydramine (Verified Allergy, Unknown, 02/03/23) Patient Home Medication List Albuterol Sulfate (Ventolin Hfa) 90 Mcg Hfa.aer.ad, 2 PUFF PO Q8H PRN for SHORTNESS OF BREATH, (Reported) Entered as Reported by: KANDACE GARCIA on 01/29/23 113 Last Action: Held Atorvastatin Calcium (Atorvastatin Calcium) 10 Mg Tablet, 10 MG PO HS, (Rep orted) Entered as Reported by: KANDACE GARCIA on 01/29/23 113 Last Action: Continued Calcium Carbonate (Calcium) 500 Mg Calcium (1250 Mg) Tablet, 500 MG PO DAILY, (Reported) Entered as Reported by: KANDACE GARCIA on 01/29/23 113 Last Action: Held Celecoxib (Celecoxib) 400 Mg Capsule, 400 MG PO HS, (Reported) Entered as Reported by: KANDACE GARCIA on 01/29/23 113 Last Action: Converted Fexofenadine HCl (Niurka Allergy) 180 Mg Tablet, 180 MG PO HS PRN for ALLERGIES, (Reported) Entered as Reported by: KANDACE GARCIA on 01/29/231129 Last Action: Held Glipizide (Glipizide) 5 Mg Tablet, 5 MG PO HS, (Reported) Entered as Reported by: KANDACE GARCIA on 01/29/231129 Last Action: Continued Hydrochlorothiazide (Hydrochlorothiazide) 25 Mg Tablet, 25 MG PO DAILY, (Reported) Entered as Reported by: KANDACE GARCIA on 01/29/231129 Last Action: Continued Losartan Potassium (Losartan Potassium) 100 Mg Tablet, 100 MG PO DAILY, ( Reported) Entered as Reported by: KANDACE GARCIA on 01/29/231129 Last Action: Continued Metformin HCl (Metformin HCl) 500 Mg Tablet, 1,000 MG PO BID, (Reported) Entered as Reported by: KANDACE GARCIA on 01/29/231129 Last Action: Held Metoprolol Succinate (Metoprolol Succinate) 100 Mg Tab.er.24h, 100 MG PO HS, (Reported) Entered as Reported by: KANDACE GARCIA on 01/29/231129 Last Action: Continued Metoprolol Succinate (Metoprolol Succinate) 50 Mg Tab.er.24h, 50 MG PO DAILY, (Reported) Entered as Reported by: KANDACE GARCIA on 01/29/231129 Last Action: Continued Multivitamin (Multivitamin) 1 Each Tablet, 1 EACH PO DAILY, (Reported) Entered as Reported by: KANDACE GARCIA on 01/29/231130 Last Action: Held Pioglitazone HCl (Pioglitazone HCl) 45 Mg Tablet, 45 MG PO DAILY, (Reported) Entered as Reported by: KANDACE GARCIA on 01/29/231129 Last Action: Held Past Qunydoo-Pkdxob-Xhaijl Hx Patient Social History Smoking Status: Former Smoker Type Used: Cigarettes (casual smoker, unsure of how many a day, did this for about 10 years, she quit 20 years ago.) 2nd Hand Smoke Exposure: No Recent Hopitalizations: No Alcohol Use?: No Seasonal Allergies Seasonal Allergies: No Surgeries History of Surgeries: Yes Surgeries: Breast (left breasy, lump removal, in her 40s, at [place]), Gallbladder (in her 30s, performed at [place]), Oophorectomy (exploratory, in , at this hospital) Respiratory History of Respiratory Disorde: Yes Respiratory Disorders: COPD (since she quit smoking) Cardiovascular History of Cardiac Disorders: Yes Cardiac Disorders: High Cholesterol, Hypertension Neurological History of Neurological Disord: No Genitourinary History of Genitourinary Disor: No Gastrointestinal History of Gastrointestinal Di: No Musculoskeletal History of Musculoskeletal Dis: No Endocrine History of Endocrine Disorders: Yes Endocrine Disorders: Diabetes, 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 No bypass surgeries.) FH: COPD (chronic obstructive pulmonary disease) 19 FATHER, Onset:60 years & older 19 MOTHER, Onset:60 years & older FH: hepatitis G8 BROTHER, , Age:40's - 50, Onset:Unknown FH: prostate cancer 19 FATHER, Onset:30's - 40 G8 BROTHER, Onset:40's - 50 FH: sleep apnea G8 BROTHER, Onset:Unknown FH: uterine cancer 19 MOTHER, Onset:40's - 50 G8 SISTER, Onset:40's - 50 Fibromyalgia G8 BROTHER, Onset:Unknown G8 BROTHER, , Age:40's - 50, Onset:Unknown G8 SISTER, Onset:Unknown Hypertension 19 FATHER, Onset:60 years & older 19 MOTHER, Onset:60 years & older Kidney disease G8 SISTER, Onset:Unknown Osteoporosis 19 MOTHER, Onset:60 years & older Review of Systems-General Constitutional: chills (intermittently); No dizziness; fever (intermittently); No weakness EENTM: hearing loss; No ear discharge, No ear pain, No blurred vision, No double vision, No eye pain, No vision loss, No dental problems, No hoarseness, No mouth pain, No mouth swelling Respiratory: cough, phlegm; No short of breath, No wheezing Cardiovascular: No chest pain, No palpitations Gastrointestinal: No abdominal pain; constipation; No diarrhea, No dysphagia, No heartburn, No nausea, No vomiting Skin: change in color (rt leg erythema); No hx of skin cancer Psychiatric/Neurological: Denies Headache, Denies Numbness, Denies Tingling, Denies Weakness Physical Exam-General Problems Physical Exam Vital Signs Vital Signs - First Documented 01/28/23 02/01/23 20:06 20:19 Temp 37.9 Pulse 131 Resp 20 B/P (MAP) 190/86 (120) Pulse Ox 95 O2 Delivery Nasal Cannula O2 Flow Rate 2.00 FiO2 21 Capillary Refill : Less Than 3 Seconds General Appearance: no apparent distress Eyes: Bilateral Eye PERRL, Bilateral Eye EOMI HEENT: No scleral icterus (R), No scleral icterus (L), No photophobia Respiratory: chest non-tender, lungs clear, normal breath sounds, no respiratory distress, no accessory muscle use Cardiovascular: regular rate, rhythm, no murmur Peripheral Pulses: 2+ Carotid (R), 2+ Carotid (L), 2+ Radial Pulses (R), 2+ Radial Pulses (L) Gastrointestinal: normal bowel sounds, non tender, soft; No distended, No gua rding, No rebound, No tenderness Extremities: No non-tender; calf tenderness (rt le), inflammation (rt le, twice the size of the left le), pedal edema (rt LE), swelling (rt le), other (rt lower ext is erythematic and twice the size of the lt) Neurologic/Psychiatric: no motor/sensory deficits, alert, normal mood/affect, oriented x 3 Skin: warm/dry, other (rt le is erythematic and warm to the touch) Data Review Labs Laboratory Tests 02/02/23 15:19: Glucometer 220H 02/02/23 20:04: Glucometer 179H 02/03/23 05:31: White Blood Count 13.3H, Red Blood Count 3.58L, Hemoglobin 9.4L, Hematocrit 29L, Mean Corpuscular Volume 82, Mean Corpuscular Hemoglobin 26, Mean Corpuscular Hemoglobin Concent 32, Red Cell Distribution Width 14.3, Platelet Count 396, Mean Platelet Volume 9.4, Immature Granulocyte % (Auto) 2, Neutrophils (%) (Auto) 71, Lymphocytes (%) (Auto) 14, Monocytes (%) (Auto) 8, Eosinophils (%) (Auto) 5, Basophils (%) (Auto) 1, Neutrophils # (Auto) 9.4H, Lymphocytes # (Auto) 1.9, Monocytes # (Auto) 1.1H, Eosinophils # (Auto) 0.7H, Basophils # (Auto) 0.1, Immature Granulocyte # (Auto) 0.2H, Sodium Level 135, Potassium Level 3.5L, Chloride Level 93L, Carbon Dioxide Level 28, Anion Gap 14, Blood Urea Nitrogen 8, Creatinine 0.76, Estimat Glomerular Filtration Rate 87, BUN/Creatinine Ratio 11, Glucose Level 190H, Calcium Level 9.7, Corrected Calcium 10.1, Magnesium Level 1.4L, Total Bilirubin 0.6, Aspartate Amino Transf (AST/SGOT) 21, Alanine Aminotransferase (ALT/SGPT) 28, Alkaline Phosphatase 82, Total Protein 7.3, Albumin 3.5 02/03/23 11:15: Glucometer 214H Microbiology 01/28/23 Blood Culture - Preliminary, Resulted No growth 01/28/23 Urine Culture - Final, Complete Strep agalactiae Group B Radiology Date of Exam:02/01/23 US VENOUS LOWER EXT RT INDICATION: Right leg swelling. COMPARISON: None. TECHNIQUE: Duplex, albarran-scale and color-flow imaging of the right lower extremity venous system was performed. FINDINGS: The common femoral vein, superficial femoral vein, profunda femoris, and popliteal veins are normal. These vessels show normal compressibility, color flow, and Doppler augmentation. The deep calf veins, although not very well seen, demonstrate no distinct intraluminal thrombus. IMPRESSION: Negative venous Doppler of the right lower extremity. Assessment/Plan Assessment/Plan Assessment/Plan Cellulitis of rt leg DMII Hypertension Hyperlipidemia Pt completed a tx of Vancomycin from 01/30 to 02/01. Will discuss with surgeon if more Abx are needed at this time. Drainage is not indicated at this time. Will continue to monitor. Pt will continue current tx for her chronic conditions. LEONARD DUNN DO 02/03/23 1605: History of Present Illness History of Present Illness Time Seen by Provider: 12:34 History of Present Illness Surgery asked to consult regarding Cellulitis. HPI: Pt came in initially because she felt "sick to my stomach" and then noticed the swelling and redness in her right leg. She states she has had swelling in her ankles but never redness like now. She denied any trauma to the leg. Allergies and Home Medications Allergies Coded Allergies: Sulfa (Sulfonamide Antibiotics) (Verified Allergy, Unknown, 02/03/23) diphenhydramine (Verified Allergy, Unknown, 02/03/23) Patient Home Medication List Home Medication List Reviewed: Yes Albuterol Sulfate (Ventolin Hfa) 90 Mcg Hfa.aer.ad, 2 PUFF PO Q8H PRN for SHORTNESS OF BREATH, (Reported) Entered as Reported by: KANDACE GARCIA on 01/29/231129 Last Action: Held Atorvastatin Calcium (Atorvastatin Calcium) 10 Mg Tablet, 10 MG PO HS, (Reported) Entered as Reported by: KANDACE GARCIA on 01/29/231129 Last Action: Continued Calcium Carbonate (Calcium) 500 Mg Calcium (1250 Mg) Tablet, 500 MG PO DAILY, (Reported) Entered as Reported by: KANDACE GARCIA on 01/29/231130 Last Action: Held Celecoxib (Celecoxib) 400 Mg Capsule, 400 MG PO HS, (Reported) Entered as Reported by: KANDACE GARCIA on 01/29/231129 Last Action: Converted Fexofenadine HCl (Niurka Allergy) 180 Mg Tablet, 180 MG PO HS PRN for ALLERGIES, (Reported) Entered as Reported by: KANDACE GARCIA on 01/29/231129 Last Action: Held Glipizide (Glipizide) 5 Mg Tablet, 5 MG PO HS, (Reported) Entered as Reported by: KANDACE GARCIA on 01/29/231129 Last Action: Continued Hydrochlorothiazide (Hydrochlorothiazide) 25 Mg Tablet, 25 MG PO DAILY, (Reported) Entered as Reported by: KANDACE GARCIA on 01/29/231129 Last Action: Continued Losartan Potassium (Losartan Potassium) 100 Mg Tablet, 100 MG PO DAILY, (Reported) Entered as Reported by: KANDACE GARCIA on 01/29/231129 Last Action: Continued Metformin HCl (Metformin HCl) 500 Mg Tablet, 1,000 MG PO BID, (Reported) Entered as Reported by: KANDACE GARCIA on 01/29/231129 Last Action: Held Metoprolol Succinate (Metoprolol Succinate) 100 Mg Tab.er.24h, 100 MG PO HS, (Reported) Entered as Reported by: KANDACE GARCIA on 01/29/231129 Last Action: Continued Metoprolol Succinate (Metoprolol Succinate) 50 Mg Tab.er.24h, 50 MG PO DAILY, (Reported) Entered as Reported by: KANDACE GARCIA on 01/29/231129 Last Action: Continued Multivitamin (Multivitamin) 1 Each Tablet, 1 EACH PO DAILY, (Reported) Entered as Reported by: KANDACE GARCIA on 01/29/231130 Last Action: Held Pioglitazone HCl (Pioglitazone HCl) 45 Mg Tablet, 45 MG PO DAILY, (Reported) Entered as Reported by: KANDACE GARCIA on 01/29/231129 Last Action: Held Past [place]cg[place]-Lkjmsb-Igaibi Hx Patient Social History Smoking Status: Former Smoker Type Used: Cigarettes (casual smoker, unsure of how many a day, did this for about 10 years, she quit 20 years ago.) 2nd Hand Smoke Exposure: No Alcohol Use?: No Surgeries History of Surgeries: Yes Surgeries: Breast (left breasy, lump removal, in her 40s, at [place]), Gallbladder (in her 30s, performed at [place]), Oophorectomy (exploratory, in , at [facility]) Respiratory History of Respiratory Disorde: Yes Respiratory Disorders: COPD (since she quit smoking) Cardiovascular History of Cardiac Disorders: No Neurological History of Neurological Disord: Yes Neurological Disorders: Neuropathy Genitourinary History of Genitourinary Disor: No Gastrointestinal History of Gastrointestinal Di: Yes Gastrointestinal Disorders: Gall Bladder Disease Musculoskeletal History of Musculoskeletal Dis: No Endocrine History of Endocrine Disorders: Yes Endocrine Disorders: Diabetes, 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 No bypass surgeries.) FH: COPD (chronic obstructive pulmonary disease) 19 FATHER, Onset:60 years & older 19 MOTHER, Onset:60 years & older FH: hepatitis G8 BROTHER, , Age:40's - 50, Onset:Unknown FH: prostate cancer 19 FATHER, Onset:30's - 40 G8 BROTHER, Onset:40's - 50 FH: sleep apnea G8 BROTHER, Onset:Unknown FH: uterine cancer 19 MOTHER, Onset:40's - 50 G8 SISTER, Onset:40's - 50 Fibromyalgia G8 BROTHER, Onset:Unknown G8 BROTHER, , Age:40's - 50, Onset:Unknown G8 SISTER, Onset:Unknown Hypertension 19 FATHER, Onset:60 years & older 19 MOTHER, Onset:60 years & older Kidney disease G8 SISTER, Onset:Unknown Osteoporosis 19 MOTHER, Onset:60 years & older Review of Systems-General Constitutional: chills (intermittently); No dizziness; fever (intermittently) EENTM: No blurred vision, No double vision, No mouth pain, No mouth swelling Respiratory: cough, phlegm; No short of breath, No wheezing Cardiovascular: No chest pain, No palpitations Gastrointestinal: abdominal pain, constipation; No diarrhea, No nausea, No vomiting Genitourinary: No dysuria, No frequency, No hematuria Musculoskeletal: joint pain, muscle pain, muscle stiffness Skin: change in color (rt leg erythema); No hx of skin cancer Psychiatric/Neurological: Denies Headache, Denies Numbness, Denies Tingling, Denies Weakness Physical Exam-General Problems Physical Exam General Appearance: no apparent distress, obese Eyes: Bilateral Eye PERRL, Bilateral Eye EOMI HEENT: pharynx normal; No scleral icterus (R), No scleral icterus (L) Neck: non-tender, supple Respiratory: chest non-tender, lungs clear, normal breath sounds, no respiratory distress, no accessory muscle use Cardiovascular: regular rate, rhythm, no murmur Gastrointestinal: non tender, soft, hernia (umbilical hernia) Extremities: calf tenderness (rt le), inflammation (rt le, twice the size of the left le), pedal edema (rt LE), swelling (rt le), other (rt lower ext is erythematic and twice the size of the lt, erythema has been marked) Neurologic/Psychiatric: no motor/sensory deficits, alert, normal mood/affect, oriented x 3 Skin: warm/dry, other (rt le is erythematic and warm to the touch) Assessment/Plan Assessment/Plan Assessment/Plan Cellulitis of rt leg Anemia DMII Hypertension Hyperlipidemia Pt completed a tx of Vancomycin from 01/30 to 02/01. She may need to be on some IV ABX for the cellulitis. US was done only for DVT. I do not feel any fluid c ollection in the leg. Will monitor and may order US or CT if it gets worse. Supervisory-Addendum Brief Verification & Attestation Participated in pt care: history, MDM, physical Personally performed: exam, history, MDM, supervision of care Care discussed with: Medical Student Procedures: n/a Verification and Attestation of Medical Student E/M Service A medical student performed and documented this service. I then reviewed and verified all information documented by the medical student and made mo difications to such information, when appropriate. I personally performed a physical exam, medical decision making and then discussed any differences between the notes and made revisions as necessary to create one note. Leonard Dunn , 02/03/23 , 16:30 SHELLIE NEGRO Feb 03, 2023 11:48 LEONARD DUNN DO Feb 03, 2023 16:05
[2023-02-03] MEDS: glipiZIDE 5 MG TABLET PO SCH (17:05)
[2023-02-03] MEDS: polyethylene glycoL POWDER 17 GM (MIRALAX) PACK PO SCH (21:46)
[2023-02-03] MEDS: CELECOXIB 100 MG CAPSULE PO SCH (21:46)
[2023-02-03] MEDS: ENOXAPARIN 40 MG/0.4 ML SYRINGE SC SCH (21:46)
[2023-02-04] VITALS (7 sets, daily range): BP systolic 137–194; BP diastolic 68–82
[2023-02-04] MEDS: RT-Ipratropium/Albuterol NEB 3 ML VIAL INH SCH ×4 (03:52→22:01)
[2023-02-04] MEDS: VANCOMYCIN 1 GM/NS 250 ML IVPB IV SCH ×4 (05:10→17:18)
[2023-02-04 05:18] LABS: BASOPHILS # (AUTO) 0.1 10^3/uL (0.0-0.1); BASOPHILS % (AUTO) 1 % (0-10); EOSINOPHILS # (AUTO) 0.6 10^3/uL (0.0-0.3); EOSINOPHILS % (AUTO) 5 % (0-10); HEMATOCRIT 29 % (35-52); HEMOGLOBIN 9.2 g/dL (11.5-16.0); LYMPHOCYTES # (AUTO) 2.3 10^3/uL (1.0-4.0); LYMPHOCYTES % (AUTO) 18 % (12-44); MEAN CORPUSCULAR HEMOGLOBIN 26 pg (25-34); MEAN CORPUSCULAR HGB CONC 32 g/dL (32-36); MEAN CORPUSCULAR VOLUME 82 fL (80-99); MEAN PLATELET VOLUME 9.5 fL (9.0-12.2); MONOCYTES % (AUTO) 8 % (0-12); NEUTROPHILS # (AUTO) 8.5 10^3/uL (1.8-7.8); NEUTROPHILS % (AUTO) 67 % (42-75); PLATELET COUNT 420 10^3/uL (130-400); WHITE BLOOD COUNT 12.7 10^3/uL (4.3-11.0)
[2023-02-04 05:25] LABS: ALBUMIN 3.4 GM/DL (3.2-4.5); POTASSIUM 3.6 MMOL/L (3.6-5.0)
[2023-02-04 05:27] LABS: CALCIUM 9.3 MG/DL (8.5-10.1)
[2023-02-04 05:28] LABS: TOTAL PROTEIN 7.3 GM/DL (6.4-8.2)
[2023-02-04 05:30] LABS: BILIRUBIN,TOTAL 0.6 MG/DL (0.1-1.0)
[2023-02-04 05:31] LABS: CREATININE SERUM 0.73 MG/DL (0.60-1.30)
[2023-02-04 05:34] LABS: MAGNESIUM 1.6 MG/DL (1.6-2.4)
[2023-02-04] MEDS: inSUlin ASPART 1 UNIT/0.01 ML (PER UNIT) SC SCH ×4 (05:55→19:44)
[2023-02-04] MEDS: MAGNESIUM 1 GM/100 ML IVPB 100 ML IV SCH ×4 (05:59→09:43)
[2023-02-04] MEDS: POTASSIUM CHLORIDE 20 MEQ TABLET PO SCH (05:59)
[2023-02-04] MEDS: POTASSIUM CL 10MEQ/50ML IVPB 50 ML IV SCH (05:59)
[2023-02-04] MEDS ORDERED: POTASSIUM CHLORIDE 20 MEQ TABLET PO ONE (06:30)
[2023-02-04] MEDS: PANTOPRAZOLE 40 MG (PROTONIX) TAB PO SCH (07:45)
[2023-02-04] MEDS: NYSTATIN CREAM (MYCOSTATIN) 30 GM TUBE TP SCH ×3 (07:45→20:33)
[2023-02-04] MEDS: SPIRONOLACTONE 25 MG (ALDACTONE) TAB PO SCH (07:45)
[2023-02-04] MEDS: LOSARTAN 100 MG TABLET PO SCH (07:45)
[2023-02-04] MEDS ORDERED: amLODIPine 5 MG TABLET PO SCH (09:00)
--- NOTE | 2023-02-04 09:50 | Progress Note - Surgery ---
SHELLIE NEGRO 02/04/23 0950: Subjective Time Seen by a Provider: 09:50 Subjective/Events-last exam Pt states that her leg is doing better today. She reports that she can still feel the warmth, but its not as warm as yesterday. She thinks her swelling is decreasing. She reports intermittent tenderness in her rt leg that comes and goes with no radiation. Nothing makes it worse. She states that keeping it elevated and not covering it with a blanket improves her symptoms. She denies any lt leg tenderness or problems. She denies any chest pain. Review of Systems General: Chills (cold intermittently, thinks it is due to her cold room); No Night Sweats HEENT: No Head Aches, No Visual Changes, No Eye Pain, No Ear Pain Pulmonary: Cough Cardiovascular: No: Chest Pain, Palpitations Gastrointestinal: No: Nausea, Vomiting, Abdominal Pain Musculoskeletal: leg pain (rt lower leg) Neurological: No: Weakness, Numbness, Change in speech, Confusion Focused Exam Time of Focused Exam: 21:10 Objective Exam Vital Signs Date Time Temp Pulse Resp B/P (MAP) Pulse Ox O2 Delivery O2 Flow Rate FiO2 02/04/23 09:07 92 173/80 (111) 02/04/23 08:24 94 Room Air 02/04/23 08:00 Room Air 02/04/23 07:26 36.6 90 20 194/82 (119) 94 Room Air 02/04/23 07:00 87 02/04/23 04:00 84 18 140/80 (100) 94 02/04/23 03:52 93 Room Air 02/04/23 01:00 95 02/03/23 21:00 95 Room Air 0.00 02/03/23 19:58 95 Room Air 02/03/23 19:33 36.5 98 16 183/86 (118) 96 Room Air 02/03/23 19:00 99 02/03/23 16:00 36.6 100 18 198/89 (125) 95 Room Air 02/03/23 14:55 98 Room Air 02/03/23 13:00 91 02/03/23 11:13 36.7 94 20 184/90 (121) 94 Room Air 02/03/23 10:10 94 Room Air 02/03/23 10:05 86 201/91 (127) I & O 02/04/23 06:59 Intake Total 2360 ml Output Total 400 ml Balance 1960 ml Capillary Refill : Less Than 3 Seconds General Appearance: No Apparent Distress, Obese HEENT: PERRL/EOMI; No Photophobia, No Scleral Icterus (L), No Scleral Icterus (R) Respiratory: Chest Non Tender, Lungs Clear, Normal Breath Sounds, No Accessory Muscle Use, No Respiratory Distress Cardiovascular: Regular Rate, Rhythm, No Murmur Peripheral Pulses: 2+ Radial Pulses (R), 2+ Radial Pulses (L) Gastrointestinal: normal bowel sounds, non tender, soft; No guarding, No rebound Extremity: Swelling (rt leg, from knee to below the ankle), Other (erythema improving, warmth improving) Neurologic/Psychiatric: Alert, Oriented x3 Skin: Other (rt leg erythema) Results Lab Laboratory Tests 02/03/23 11:15: Glucometer 214H 02/03/23 16:04: Glucometer 206H 02/04/23 05:09: White Blood Count 12.7H, Red Blood Count 3.51L, Hemoglobin 9.2L, Hematocrit 29L, Mean Corpuscular Volume 82, Mean Corpuscular Hemoglobin 26, Mean Corpuscular Hemoglobin Concent 32, Red Cell Distribution Width 14.5, Platelet Count 420H, Mean Platelet Volume 9.5, Immature Granulocyte % (Auto) 2, Neutrophils (%) (Auto) 67, Lymphocytes (%) (Auto) 18, Monocytes (%) (Auto) 8, Eosinophils (%) (Auto) 5, Basophils (%) (Auto) 1, Neutrophils # (Auto) 8.5H, Lymphocytes # (Auto) 2.3, Monocytes # (Auto) 1.0, Eosinophils # (Auto) 0.6H, Basophils # (Auto) 0.1, Immature Granulocyte # (Auto) 0.2H, Sodium Level 133L, Potassium Level 3.6, Chloride Level 95L, Carbon Dioxide Level 25, Anion Gap 13, Blood Urea Nitrogen 8, Creatinine 0.73, Estimat Glomerular Filtration Rate 92, BUN/Creatinine Ratio 11, Glucose Level 165H, Calcium Level 9.3, Corrected Calcium 9.8, Magnesium Level 1.6, Total Bilirubin 0.6, Aspartate Amino Transf (AST/SGOT) 23, Alanine Aminotransferase (ALT/SGPT) 27, Alkaline Phosphatase 79, Total Protein 7.3, Albumin 3.4 Microbiology 01/28/23 Blood Culture - Final, Complete No growth 01/28/23 Urine Culture - Final, Complete Strep agalactiae Group B Assessment/Plan Assessment/Plan Assessment/Plan Cellulitis of rt leg Anemia DMII Hypertension Hyperlipidemia Will continue to monitor pt to see if IV ABX are necessary. No US or CT is indicated at this time due to leg improving. Pt anemia status is stable. No tx is necessary at this time. LION DUNN DO 02/04/23 1158: Subjective Time Seen by a Provider: 10:54 Subjective/Events-last exam Pt seen and examined, states she think her leg is better. Still has intermittent pain. Review of Systems General: Chills (cold intermittently, thinks it is due to her cold room) Pulmonary: Cough Cardiovascular: No: Chest Pain, Palpitations Gastrointestinal: No: Nausea, Vomiting, Abdominal Pain Musculoskeletal: leg pain (rt lower leg) Objective Exam General Appearance: No Apparent Distress, Obese HEENT: PERRL/EOMI Respiratory: Lungs Clear, Normal Breath Sounds, No Accessory Muscle Use, No Respiratory Distress Cardiovascular: Regular Rate, Rhythm, No Murmur Gastrointestinal: non tender, soft Extremity: Swelling (rt leg, from knee to below the ankle), Other (erythema improving (less red appearing), warmth improving. The erythema has withdrawn from line previously drawn by about an inch and a half) Assessment/Plan Assessment/Plan Assessment/Plan Cellulitis of rt leg Anemia DMII Hypertension Hyperlipidemia Will continue to monitor pt to see if IV ABX are necessary. No US or CT is indicated at this time due to leg improving and I do not feel any fluctuance. Pt anemia status is stable. No tx is necessary at this time. Supervisory-Addendum Brief Verification & Attestation Participated in pt care: history, MDM, physical Personally performed: exam, history, MDM, supervision of care Care discussed with: Medical Student Procedures: n/a Verification and Attestation of Medical Student E/M Service A medical student performed and documented this service. I then reviewed and verified all information documented by the medical student and made modificati ons to such information, when appropriate. I personally performed a physical exam, medical decision making and then discussed any differences between the notes and made revisions as necessary to create one note. Lion Dunn , 02/04/23 , 11:58 SHELLIE NEGRO Feb 04, 2023 09:50 LION DUNN DO Feb 04, 2023 11:58
--- NOTE | 2023-02-04 10:10 | Progress Note - Hospitalist ---
Subjective HPI/CC On Admission Date Seen by Provider: Feb 04, 2023 Azeb Elliott is a 62 year old female with PMH HTN, T2DM, HLD, obesity, who presented with malaise. She reports that she started feeling sick yesterday. She had fevers and chills. She had nausea. She did not have a good appetite. She was feeling weak. She noticed her leg was getting red once she got to the ER. She hs having some swelling and pain. She says her leg is warm. She has some open wounds on her proximal, dorsal foot. She has been having issues with a fungal infection. She denies shortness of breath and cough. She denies chest pain. She denies dysuria. Subjective/Events-last exam Pt reports feeling a little better today. Thinks leg is marginally improved. BP slightly improved as well. Offered discahrge home and does not feel comfortable today. Agrees to DC home tomorrow. Focused Exam Time of Focused Exam: 21:10 Objective Exam Vital Signs Vital Signs Date Time Temp Pulse Resp B/P (MAP) Pulse Ox O2 Delivery O2 Flow Rate FiO2 02/04/23 09:07 92 173/80 (111) 02/04/23 08:24 94 Room Air 02/04/23 07:26 36.6 20 02/03/23 21:00 0.00 02/01/23 20:19 21 Capillary Refill : Less Than 3 Seconds General Appearance: No Apparent Distress Respiratory: Lungs Clear Cardiovascular: Regular Rate, Rhythm, No Murmur Extremity: Other (persistent edema of RLE but erythema improving and warmth much improved. Slightly improved edema. ) Neurologic/Psychiatric: Alert, Oriented x3 Results/Procedures Lab Laboratory Tests 02/04/23 05:09 Patient resulted labs reviewed. Imaging: Reviewed Imaging Report Assessment/Plan Assessment and Plan Assess & Plan/Chief Complaint Severe sepsis due to cellulitis Lactic acidosis Shantel infection Continue Vanc- white down slightly tonight Completed Diflucan No DVT on doppler Consult general surgery- appreciate recs T2DM Sliding scale insulin- BS better today Continue glipizide and pioglitazone HTN HLD Obesity Continue Metoprolol, Losartan, Aldactone, and Amlodipine DC-ed HCTZ due to hypokalemia BP slightly improved but still in the 190s Hydralazine prn DVT prophylaxis: BRIDGETTE Hall MD Feb 04, 2023 10:10
[2023-02-04] MEDS: glipiZIDE 5 MG TABLET PO SCH (17:18)
[2023-02-04] MEDS: ENOXAPARIN 40 MG/0.4 ML SYRINGE SC SCH (20:26)
[2023-02-04] MEDS: CELECOXIB 100 MG CAPSULE PO SCH (20:26)
[2023-02-04] MEDS: polyethylene glycoL POWDER 17 GM (MIRALAX) PACK PO SCH (20:33)
[2023-02-05] VITALS (8 sets, daily range): BP systolic 122–195; BP diastolic 70–92
[2023-02-05] MEDS: RT-Ipratropium/Albuterol NEB 3 ML VIAL INH SCH ×4 (03:25→20:06)
[2023-02-05] MEDS: VANCOMYCIN 1 GM/NS 250 ML IVPB IV SCH ×4 (04:07→17:06)
[2023-02-05] MEDS: ACETAMINOPHEN 500 MG TABLET PO PRN (04:07)
[2023-02-05] MEDS: RT-Ipratropium/Albuterol NEB 3 ML VIAL INH PRN (04:24)
[2023-02-05 05:17] LABS: BASOPHILS # (AUTO) 0.1 10^3/uL (0.0-0.1); BASOPHILS % (AUTO) 1 % (0-10); EOSINOPHILS # (AUTO) 0.7 10^3/uL (0.0-0.3); EOSINOPHILS % (AUTO) 6 % (0-10); HEMATOCRIT 29 % (35-52); HEMOGLOBIN 9.2 g/dL (11.5-16.0); LYMPHOCYTES # (AUTO) 1.7 10^3/uL (1.0-4.0); LYMPHOCYTES % (AUTO) 14 % (12-44); MEAN CORPUSCULAR HEMOGLOBIN 26 pg (25-34); MEAN CORPUSCULAR HGB CONC 32 g/dL (32-36); MEAN CORPUSCULAR VOLUME 81 fL (80-99); MEAN PLATELET VOLUME 9.1 fL (9.0-12.2); MONOCYTES % (AUTO) 9 % (0-12); NEUTROPHILS # (AUTO) 8.4 10^3/uL (1.8-7.8); NEUTROPHILS % (AUTO) 69 % (42-75); PLATELET COUNT 432 10^3/uL (130-400); WHITE BLOOD COUNT 12.1 10^3/uL (4.3-11.0)
[2023-02-05] MEDS: inSUlin ASPART 1 UNIT/0.01 ML (PER UNIT) SC SCH ×4 (05:18→19:58)
[2023-02-05 05:29] LABS: ALBUMIN 3.4 GM/DL (3.2-4.5); POTASSIUM 4.1 MMOL/L (3.6-5.0)
[2023-02-05 05:30] LABS: CALCIUM 9.2 MG/DL (8.5-10.1)
[2023-02-05 05:31] LABS: TOTAL PROTEIN 7.3 GM/DL (6.4-8.2)
[2023-02-05 05:33] LABS: BILIRUBIN,TOTAL 0.5 MG/DL (0.1-1.0)
[2023-02-05] MEDS: POTASSIUM CL 10MEQ/50ML IVPB 50 ML IV SCH (05:33)
[2023-02-05] MEDS: POTASSIUM CHLORIDE 20 MEQ TABLET PO SCH (05:34)
[2023-02-05 05:35] LABS: CREATININE SERUM 0.76 MG/DL (0.60-1.30)
[2023-02-05 05:38] LABS: MAGNESIUM 1.7 MG/DL (1.6-2.4)
[2023-02-05] MEDS: MAGNESIUM 1 GM/100 ML IVPB 100 ML IV SCH ×4 (05:42→08:37)
--- NOTE | 2023-02-05 07:45 | Progress Note - Surgery ---
SHELLIE NEGRO 02/05/23 0745: Subjective Time Seen by a Provider: 07:39 Subjective/Events-last exam Pt states that she thinks her leg is in the same condition as yesterday. She denies any pain today. She states that her rt leg is still having warmth and erythema. She denies any pain in her left leg. She has been keeping her leg propped up. She has not been ambulating, except for going to the bathroom. She reports that her last BM was around 0100/0200H this morning, she denies any blood in it. She reports it being hard. She has been taking Miralax. She was eating breakfast when I examined her this morning, Review of Systems General: No Chills, No Night Sweats HEENT: No Head Aches, No Visual Changes, No Eye Pain, No Ear Pain Pulmonary: Cough Cardiovascular: No: Chest Pain, Palpitations Gastrointestinal: No: Nausea, Vomiting, Abdominal Pain Neurological: No: Weakness, Incoordination, Change in speech, Confusion Focused Exam Time of Focused Exam: 21:10 Objective Exam Vital Signs Date Time Temp Pulse Resp B/P (MAP) Pulse Ox O2 Delivery O2 Flow Rate FiO2 02/05/23 07:10 36.8 82 18 195/81 (119) 94 Room Air 02/05/23 04:24 94 Room Air 02/05/23 03:28 36.4 86 16 171/92 (118) 94 Room Air 0.00 0.00 02/05/23 01:00 89 02/04/23 23:28 36.1 100 16 181/81 (114) 94 Room Air 0.00 0.00 02/04/23 20:00 Room Air 02/04/23 19:53 37.4 100 16 180/79 (112) 92 Room Air 02/04/23 19:00 97 02/04/23 15:44 37.3 93 17 166/78 (107) 93 Room Air 02/04/23 14:34 96 Room Air 02/04/23 12:26 94 02/04/23 11:23 36.2 96 20 137/68 (91) 94 Room Air 02/04/23 09:07 92 173/80 (111) 02/04/23 08:24 94 Room Air 02/04/23 08:00 Room Air I & O 02/05/23 07:00 Intake Total 1970 ml Output Total 400 ml Balance 1570 ml Capillary Refill : Less Than 3 Seconds General Appearance: No Apparent Distress, Obese HEENT: PERRL/EOMI; No Photophobia, No Scleral Icterus (L), No Scleral Icterus (R) Respiratory: Chest Non Tender, Lungs Clear, Normal Breath Sounds, No Accessory Muscle Use, No Respiratory Distress Cardiovascular: Regular Rate, Rhythm, No Murmur Peripheral Pulses: 2+ Radial Pulses (R), 2+ Radial Pulses (L) Gastrointestinal: non tender, soft Extremity: No Calf Tenderness (b/l), Swelling (rt leg, from knee to below the ankle.), Other (erythema improving (less red appearing), warmth improving. The erythema has withdrawn from line previously drawn by about an inch and a half. Pt reports less tenderness than yesterday upon palpations. Cannot feel any fluctuations in rt leg.) Neurologic/Psychiatric: Alert, Oriented x3, Normal Mood/Affect Skin: Other (rt leg erythema (improving from yesterday)) Results Lab Laboratory Tests 02/04/23 11:21: Glucometer 225H 02/04/23 19:26: Glucometer 181H 02/05/23 05:04: White Blood Count 12.1H, Red Blood Count 3.53L, Hemoglobin 9.2L, Hematocrit 29L, Mean Corpuscular Volume 81, Mean Corpuscular Hemoglobin 26, Mean Corpuscular Hemoglobin Concent 32, Red Cell Distribution Width 14.6H, Platelet Count 432H, Mean Platelet Volume 9.1, Immature Granulocyte % (Auto) 1, Neutrophils (%) (Auto) 69, Lymphocytes (%) (Auto) 14, Monocytes (%) (Auto) 9, Eosinophils (%) (Auto) 6, Basophils (%) (Auto) 1, Neutrophils # (Auto) 8.4H, Lymphocytes # (Auto ) 1.7, Monocytes # (Auto) 1.0, Eosinophils # (Auto) 0.7H, Basophils # (Auto) 0.1, Immature Granulocyte # (Auto) 0.2H, Sodium Level 131L, Potassium Level 4.1, Chloride Level 97L, Carbon Dioxide Level 23, Anion Gap 11, Blood Urea Nitrogen 9, Creatinine 0.76, Estimat Glomerular Filtration Rate 87, BUN/Creatinine Ratio 12, Glucose Level 175H, Calcium Level 9.2, Corrected Calcium 9.7, Magnesium Level 1.7, Total Bilirubin 0.5, Aspartate Amino Transf (AST/SGOT) 24, Alanine Aminotransferase (ALT/SGPT) 28, Alkaline Phosphatase 75, Total Protein 7.3, Albumin 3.4 02/05/23 05:08: Glucometer 183H Microbiology 01/28/23 Blood Culture - Final, Complete No growth 01/28/23 Urine Culture - Final, Complete Strep agalactiae Group B Assessment/Plan Assessment/Plan Assessment/Plan Cellulitis of rt leg Anemia DMII Hypertension Hyperlipidemia Will continue to monitor pt to see if IV ABX are necessary. No US or CT is indicated at this time due to leg improving and I do not feel any fluctuance. Pt anemia status is stable. No tx is necessary at this time. LION DUNN DO 02/05/23 0904: Subjective Time Seen by a Provider: 08:51 Subjective/Events-last exam Pt seen and examined, she thinks her leg is about the same; definitely not better than yesterday. Review of Systems General: No Chills, No Night Sweats Cardiovascular: No: Chest Pain, Palpitations Gastrointestinal: No: Nausea, Vomiting, Abdominal Pain Objective Exam General Appearance: No Apparent Distress, Obese HEENT: PERRL/EOMI Respiratory: Lungs Clear, Normal Breath Sounds, No Accessory Muscle Use, No Respiratory Distress Cardiovascular: Regular Rate, Rhythm, No Murmur Gastrointestinal: non tender, soft Extremity: Swelling (rt leg, from knee to below the ankle.), Other (erythema improving (less red appearing), warmth improving. The erythema has withdrawn from line previously drawn by about an inch and a half. Pt reports less tenderness than yesterday upon palpations. Cannot feel any fluctuations in rt leg.) Neurologic/Psychiatric: Alert, Oriented x3 Assessment/Plan Assessment/Plan Assessment/Plan Cellulitis of rt leg - r/o abscess Anemia DMII Hypertension Hyperlipidemia Will continue to monitor pt to see if IV ABX are necessary. Will order CT to rule out abscess; although I do not feel any fluctuance, it is not any better. I also told pt to elevate leg a little higher, has a lot of edema in foot. Pt anemia status is stable. No tx is necessary at this time. Supervisory-Addendum Brief Verification & Attestation Participated in pt care: history, MDM, physical Personally performed: exam, history, MDM, supervision of care Care discussed with: Medical Student Procedures: n/a Verification and Attestation of Medical Student E/M Service A medical student performed and documented this service. I then reviewed and verified all information documented by the medical student and made modif ications to such information, when appropriate. I personally performed a physical exam, medical decision making and then discussed any differences between the notes and made revisions as necessary to create one note. Lion Dunn , 02/05/23 , 09:03 SHELLIE NEGRO Feb 05, 2023 07:45 LION DUNN DO Feb 05, 2023 09:04
[2023-02-05] MEDS: SPIRONOLACTONE 25 MG (ALDACTONE) TAB PO SCH (08:37)
[2023-02-05] MEDS: PANTOPRAZOLE 40 MG (PROTONIX) TAB PO SCH (08:38)
[2023-02-05] MEDS: LOSARTAN 100 MG TABLET PO SCH (08:38)
[2023-02-05] MEDS: amLODIPine 10 MG TABLET PO SCH (08:38)
[2023-02-05] MEDS: NYSTATIN CREAM (MYCOSTATIN) 30 GM TUBE TP SCH ×3 (08:38→19:45)
[2023-02-05] MEDS ORDERED: IOHEXOL 350 MG/ML 100 ML (OMNIPAQUE 350) VIAL IV ONE (11:45)
[2023-02-05] MEDS ORDERED: NS 100 ML (IVPB) BAG IV ONE (11:45)
[2023-02-05] MEDS ORDERED: HOLD METFORMIN - RECEIVED CONTRAST 20 ML VIAL IV SCH (11:45)
[2023-02-05] MEDS: DOCOSANOL 10% TP SCH ×3 (11:50→19:45)
--- NOTE | 2023-02-05 16:05 | Diagnostic Imaging Report ---
PROCEDURE: CT right lower extremity with contrast. TECHNIQUE: Multiple contiguous axial CT images of the right extremity were obtained after intravenous administration of iodinated contrast. Auto Exposure Controls were utilized during the CT exam to meet ALARA standards for radiation dose reduction. INDICATION: Left leg cellulitis. Pain and swelling. COMPARISON: None available. FINDINGS: Subcutaneous reticulations and skin thickening is present in the distal lower leg and extending to level of the ankle. No rim-enhancing fluid collection that would indicate a drainable abscess within subcutaneous tissues. Additionally, there is no deep fascial fluid present. Fatty atrophy of the gastrocnemius and soleus may be from disuse or chronic denervation injury. No fracture or periosteal reaction is seen. IMPRESSION: 1. No drainable fluid collection within the right lower leg. 2. No soft tissue gas or CT features of osteomyelitis. Dictated by: Dictated on workstation # [id number]
[2023-02-05] MEDS: glipiZIDE 5 MG TABLET PO SCH (17:06)
--- NOTE | 2023-02-05 17:19 | Progress Note - Hospitalist ---
Subjective HPI/CC On Admission Date Seen by Provider: Feb 05, 2023 Time Seen by Provider: 10:45 Azeb Elliott is a 62 year old female with PMH HTN, T2DM, HLD, obesity, who presented with malaise. She reports that she started feeling sick yesterday. She had fevers and chills. She had nausea. She did not have a good appetite. She was feeling weak. She noticed her leg was getting red once she got to the ER. She hs having some swelling and pain. She says her leg is warm. She has some open wounds on her proximal, dorsal foot. She has been having issues with a fungal infection. She denies shortness of breath and cough. She denies chest pain. She denies dysuria. Subjective/Events-last exam She is about the same. She has no new complaints or concerns. Focused Exam Time of Focused Exam: 21:10 Objective Exam Vital Signs Vital Signs Date Time Temp Pulse Resp B/P (MAP) Pulse Ox O2 Delivery O2 Flow Rate FiO2 02/05/23 15:45 36.8 91 98 02/05/23 15:23 20 122/90 (101) Room Air 02/05/23 03:28 0.00 0.00 02/01/23 20:19 21 Capillary Refill : Less Than 3 Seconds General Appearance: No Apparent Distress, Obese Respiratory: Lungs Clear, No Respiratory Distress Cardiovascular: Regular Rate, Rhythm, No Murmur Gastrointestinal: Normal Bowel Sounds, Soft Extremity: Normal Inspection; No Inflammation; Pedal Edema Skin: Warm/Dry Results/Procedures Lab Laboratory Tests 02/05/23 05:04 Patient resulted labs reviewed. Imaging: Reviewed Imaging Report Assessment/Plan Assessment and Plan Assess & Plan/Chief Complaint Cellulitis Continue Vancomycin Surgery following CT without evidence of drainable fluid collection T2DM Sliding scale insulin HTN Increase Amlodipine Increase Metoprolol Continue Losartan and Aldactone HLD Obesity Continue home meds as able DVT prophylaxis: Lovenox Severe sepsis, resolved Shantel infection, resolved Lactic acidosis, resolved Diagnosis/Problems Diagnosis/Problems (1) Severe sepsis Status: Resolved Resolution Date/Time: 02/05/23 @ 17:19 (2) Cellulitis Status: Acute Qualifiers: Site of cellulitis: extremity Site of cellulitis of extremity: lower extremity Laterality: right Qualified Codes: L03.115 - Cellulitis of right lower limb (3) Lactic acidosis Status: Resolved Resolution Date/Time: 02/05/23 @ 17:19 (4) HTN (hypertension) Status: Acute (5) T2DM (type 2 diabetes mellitus) Status: Chronic (6) HLD (hyperlipidemia) Status: Chronic (7) Obesity Status: Chronic MARTÍN ANDERSON MD Feb 05, 2023 17:19
[2023-02-05] MEDS: ENOXAPARIN 40 MG/0.4 ML SYRINGE SC SCH (19:39)
[2023-02-05] MEDS: polyethylene glycoL POWDER 17 GM (MIRALAX) PACK PO SCH (19:39)
[2023-02-05] MEDS: CELECOXIB 100 MG CAPSULE PO SCH (19:40)
[2023-02-06 03:25] VITALS: BP 169/74
[2023-02-06 05:16] LABS: BASOPHILS # (AUTO) 0.2 10^3/uL (0.0-0.1); BASOPHILS % (AUTO) 1 % (0-10); EOSINOPHILS # (AUTO) 0.7 10^3/uL (0.0-0.3); EOSINOPHILS % (AUTO) 5 % (0-10); HEMATOCRIT 29 % (35-52); HEMOGLOBIN 9.3 g/dL (11.5-16.0); LYMPHOCYTES # (AUTO) 1.8 10^3/uL (1.0-4.0); LYMPHOCYTES % (AUTO) 14 % (12-44); MEAN CORPUSCULAR HEMOGLOBIN 26 pg (25-34); MEAN CORPUSCULAR HGB CONC 32 g/dL (32-36); MEAN CORPUSCULAR VOLUME 81 fL (80-99); MEAN PLATELET VOLUME 9.4 fL (9.0-12.2); MONOCYTES % (AUTO) 8 % (0-12); NEUTROPHILS # (AUTO) 8.7 10^3/uL (1.8-7.8); NEUTROPHILS % (AUTO) 70 % (42-75); PLATELET COUNT 485 10^3/uL (130-400); WHITE BLOOD COUNT 12.5 10^3/uL (4.3-11.0)
[2023-02-06 05:26] LABS: ALBUMIN 3.5 GM/DL (3.2-4.5)
[2023-02-06 05:27] LABS: POTASSIUM 4.3 MMOL/L (3.6-5.0)
[2023-02-06 05:28] LABS: CALCIUM 9.5 MG/DL (8.5-10.1)
[2023-02-06 05:29] LABS: TOTAL PROTEIN 7.7 GM/DL (6.4-8.2)
[2023-02-06 05:31] LABS: BILIRUBIN,TOTAL 0.4 MG/DL (0.1-1.0)
[2023-02-06 05:33] LABS: CREATININE SERUM 0.82 MG/DL (0.60-1.30)
[2023-02-06 05:36] LABS: MAGNESIUM 1.7 MG/DL (1.6-2.4)
[2023-02-06] MEDS: inSUlin ASPART 1 UNIT/0.01 ML (PER UNIT) SC SCH ×2 (05:43→11:39)
[2023-02-06] MEDS: POTASSIUM CHLORIDE 20 MEQ TABLET PO SCH (05:44)
[2023-02-06] MEDS: POTASSIUM CL 10MEQ/50ML IVPB 50 ML IV SCH (05:45)
[2023-02-06] MEDS: MAGNESIUM 1 GM/100 ML IVPB 100 ML IV SCH ×5 (06:08→09:32)
[2023-02-06] MEDS: DOCOSANOL 10% TP SCH ×2 (06:14→08:42)
[2023-02-06] MEDS: RT-Ipratropium/Albuterol NEB 3 ML VIAL INH SCH (07:43)
[2023-02-06 07:46] VITALS: BP 140/70
--- NOTE | 2023-02-06 08:28 | Progress Note - Surgery ---
SHELLIE NEGRO 02/06/23 0828: Subjective Time Seen by a Provider: 08:23 Subjective/Events-last exam Pt states that she thinks her leg is getting better. She states that she is has no new leg pain. She feels like her rt leg is warm, but not as warm as it has been. She denies any calf pain in either leg. She reports they wrapped her right leg sometime around 8/9pm due to the bandage not covering her wound well enough. She states her last bowel movement was yesterday, she denies any blood. She states that she has been ambulating. Review of Systems General: No Chills, No Night Sweats HEENT: No Head Aches, No Visual Changes, No Eye Pain, No Ear Pain Pulmonary: No Cough Cardiovascular: No: Chest Pain, Palpitations Gastrointestinal: No: Nausea, Vomiting, Abdominal Pain Musculoskeletal: leg pain (rt leg) Neurological: No: Weakness, Numbness, Incoordination, Change in speech, Confusion Focused Exam Time of Focused Exam: 21:10 Objective Exam Vital Signs Date Time Temp Pulse Resp B/P (MAP) Pulse Ox O2 Delivery O2 Flow Rate FiO2 02/06/23 08:00 Room Air 02/06/23 07:46 36.9 87 20 140/70 (93) 93 Room Air 02/06/23 07:43 94 Room Air 02/06/23 07:31 88 02/06/23 03:25 37.0 85 18 169/74 (105) 94 Room Air 02/06/23 01:00 91 02/05/23 23:39 37.3 97 18 157/70 (99) 93 Room Air 02/05/23 20:33 36.7 104 20 152/78 (102) 93 Room Air 02/05/23 20:07 96 Room Air 02/05/23 19:50 Room Air 02/05/23 19:00 97 02/05/23 15:45 36.8 91 98 02/05/23 15:23 36.8 91 20 122/90 (101) 98 Room Air 02/05/23 14:52 96 Room Air 02/05/23 12:39 88 02/05/23 11:40 36.3 87 18 144/84 (104) 94 Room Air 02/05/23 08:26 95 Room Air I & O 02/06/23 07:00 Intake Total 2740 ml Output Total 600 ml Balance 2140 ml Capillary Refill : Less Than 3 Seconds General Appearance: No Apparent Distress, Obese HEENT: PERRL/EOMI; No Photophobia, No Scleral Icterus (L), No Scleral Icterus (R) Respiratory: Chest Non Tender, Lungs Clear, No Respiratory Distress Cardiovascular: Regular Rate, Rhythm, No Murmur Peripheral Pulses: 2+ Radial Pulses (R), 2+ Radial Pulses (L) Gastrointestinal: non tender, soft Extremity: No No Calf Tenderness; Swelling (rt leg, about twice the size as the left but improving), Other (rt leg erythema, tender to touch, not as warm as yesterday. The erythema is down about 2 inches on the anterior and medial side, and down 1 inch on the lateral and posterio side.) Neurologic/Psychiatric: Alert, Oriented x3, Normal Mood/Affect Skin: Warm/Dry Results Lab Laboratory Tests 02/05/23 11:02: Glucometer 203H 02/05/23 15:25: Glucometer 169H 02/05/23 19:49: Glucometer 190H 02/06/23 05:05: White Blood Count 12.5H, Red Blood Count 3.61L, Hemoglobin 9.3L, Hematocrit 29L, Mean Corpuscular Volume 81, Mean Corpuscular Hemoglobin 26, Mean Corpuscular Hemoglobin Concent 32, Red Cell Distribution Width 14.5, Platelet Count 485H, Mean Platelet Volume 9.4, Immature Granulocyte % (Auto) 1, Neutrophils (%) (Auto) 70, Lymphocytes (%) (Auto) 14, Monocytes (%) (Auto) 8, Eosinophils (%) (Auto) 5, Basophils (%) (Auto) 1, Neutrophils # (Auto) 8.7H, Lymphocytes # (Auto) 1.8, Monocytes # (Auto) 1.0, Eosinophils # (Auto) 0.7H, Basophils # (Auto) 0.2H, Immature Granulocyte # (Auto) 0.2H, Sodium Level 132L, Potassium Level 4.3, Chloride Level 96L, Carbon Dioxide Level 24, Anion Gap 12, Blood Urea Nitrogen 10, Creatinine 0.82, Estimat Glomerular Filtration Rate 80, BUN/Creatinine Ratio 12, Glucose Level 165H, Calcium Level 9.5, Corrected Calcium 9.9, Magnesium Level 1.7, Total Bilirubin 0.4, Aspartate Amino Transf (AST/SGOT) 31, Alanine Aminotransferase (ALT/SGPT) 31, Alkaline Phosphatase 82, Total Protein 7.7, Albumin 3.5 Microbiology 01/28/23 Blood Culture - Final, Complete No growth 01/28/23 Urine Culture - Final, Complete Strep agalactiae Group B Radiology Date of Exam:02/05/23 CT EXTREMITY LOWER RIGHT W PROCEDURE: CT right lower extremity with contrast. TECHNIQUE: Multiple contiguous axial CT images of the right extremity were obtained after intravenous administration of iodinated contrast. Auto Exposure Controls were utilized during the CT exam to meet ALARA standards for radiation dose reduction. INDICATION: Left leg cellulitis. Pain and swelling. COMPARISON: None available. FINDINGS: Subcutaneous reticulations and skin thickening is present in the distal lower leg and extending to level of the ankle. No rim-enhancing fluid collection that would indicate a drainable abscess within subcutaneous tissues. Additionally, there is no deep fascial fluid present. Fatty atrophy of the gastrocnemius and soleus may be from disuse or chronic denervation injury. No fracture or periosteal reaction is seen. Assessment/Plan Assessment/Plan Assessment/Plan Cellulitis of rt leg - w/o abscess Anemia DMII Hypertension Hyperlipidemia Will continue to monitor pt to see if IV ABX are necessary. The CT was performed yesterday, will discuss the results with the surgeon. I do not feel any fluctuations. Pt anemia status is stable. No tx is necessary at this time. LION DUNN DO 02/06/23 1132: Subjective Time Seen by a Provider: 11:21 Subjective/Events-last exam Pt seen and examined, she is going home today. Thinks her leg is a little better but still red. Review of Systems General: No Chills, No Night Sweats Pulmonary: No Cough Cardiovascular: No: Chest Pain, Palpitations Gastrointestinal: No: Nausea Musculoskeletal: leg pain (rt leg) Objective Exam General Appearance: No Apparent Distress, Obese HEENT: PERRL/EOMI Respiratory: Chest Non Tender, Lungs Clear, Normal Breath Sounds, No Accessory Muscle Use, No Respiratory Distress Cardiovascular: Regular Rate, Rhythm, No Murmur Gastrointestinal: non tender, soft Extremity: Swelling (rt leg, about twice the size as the left but improving), Other (rt leg erythema, tender to touch, not as warm as yesterday. The erythema is down about 2 inches on the anterior and medial side, and down 1 inch on the lateral and posterio side.) Neurologic/Psychiatric: Alert, Oriented x3, Normal Mood/Affect Assessment/Plan Assessment/Plan Assessment/Plan Cellulitis of rt leg - w/o abscess Anemia DMII Hypertension Hyperlipidemia Pt is improving, the CT performed yesterday did not show any fluid collections or subcutaneous gas. I do not feel any fluctuations. Pt anemia status is stable. No tx is necessary at this time. Pt ok to go home, told to elevate the leg and come back if it starts getting worse. Supervisory-Addendum Brief Verification & Attestation Participated in pt care: history, MDM, physical Personally performed: exam, history, MDM, supervision of care Care discussed with: Medical Student Procedures: n/a Verification and Attestation of Medical Student E/M Service A medical student performed and documented this service. I then reviewed and verified all information documented by the medical student and made modifications to such information, when appropriate. I personally performed a physical exam, medical decision making and then discussed any differences between the notes and made revisions as necessary to create one note. Lion Dunn , 02/06/23 , 11:32 SHELLIE NEGRO Feb 06, 2023 08:28 LION DUNN DO Feb 06, 2023 11:32
[2023-02-06] MEDS: SPIRONOLACTONE 25 MG (ALDACTONE) TAB PO SCH (08:41)
[2023-02-06] MEDS: LOSARTAN 100 MG TABLET PO SCH (08:41)
[2023-02-06] MEDS: amLODIPine 10 MG TABLET PO SCH (08:41)
[2023-02-06] MEDS: PANTOPRAZOLE 40 MG (PROTONIX) TAB PO SCH (08:41)
[2023-02-06] MEDS: NYSTATIN CREAM (MYCOSTATIN) 30 GM TUBE TP SCH (08:42)
[2023-02-06] MEDS ORDERED: AMLO-251 PO (10:15)
[2023-02-06] MEDS ORDERED: MTP100TCR PO (10:15)
[2023-02-06] MEDS ORDERED: SPIR25TA5 PO (10:15)
[2023-02-06] MEDS ORDERED: DOXY100C5 PO (10:17)
[2023-02-06] MEDS ORDERED: AMOX1TAB12 PO (10:17)
--- NOTE | 2023-02-06 11:37 | Physical Therapy Evaluation ---
PT Evaluation-General Medical Diagnosis Admission Date Jan 28, 2023 at 23:19 Medical Diagnosis: Malaise Onset Date: Jan 29, 2023 Therapy Diagnosis Therapy Diagnosis: debility Height/Weight Height (Feet): 5 Height (Inches): 2.00 Weight (Pounds): 175 Weight (Ounces): 0.0 Precautions Precautions/Isolations: Standard Precautions Weight Bear Status Right Lower Extremity: Right Full Weight Bearing Left Lower Extremity: Left Full Weight Bearing Referral Physician: Jasmeet Reason for Referral: Evaluation/Treatment Medical History Current History cellulitis right LE Reviewed History: Yes Social History Home: Single Level Current Living Status: Spouse Entry Into Home: Stairs With Railing PT Steps Into Home: 2 Prior Prior Level of Function SCALE: Activities may be completed with or without assistive devices. 2-[id number] completes the activity by him/herself with no assistance from a helper. 5-Set-up or Clean-up Assistance-helper sets up or cleans up; patient completes activity. [place] assists only prior to or following the activity. 4-Supervision or Touching Assistance-helper provides verbal cues and/or touching/steadying and/or contact guard assistance as patient completes activity. Assistance may be provided throughout the activity or intermittently. 3-Partial/Moderate Assistance-helper does LESS THAN HALF the effort. [place] lifts, holds or supports trunk or limbs, but provides less than half the effort. 2-Substantial/Maximal Assistance-helper does MORE THAN HALF the effort. [place] lifts or holds trunk or limbs and provides more than half the effort. 4-[id number] does ALL the effort. Patient does none of the effort to complete the activity. Or, the assistance of 2 or more helpers is required for the patient to complete the activity. If activity was not attempted, code reason: 7-Patient Refused. 9-Not Applicable-not attempted and the patient did not perform the activity before the current illness, exacerbation or injury. 10-Not Attempted due to Environmental Limitations-(lack of equipment, weather restraints, etc.). 88-Not Attempted due to Medical Conditions or Safety Concerns. Bed Mobility: 6 Transfers (B,C,W/C): 6 Gait: 6 Indoor Mobility (Ambulation): Independent Stairs: Independent Prior Devices Use: None PT Evaluation-Current Subjective Patient agrees to reassessment. Objective Patient Orientation: Normal For Age Attachments: IV ROM/Strength ROM Lower Extremities bilateral LE WFL Strength Lower Extremities 4/5 grossly bilateral LE all planes Sensory Vision: Functional Hearing: Functional Hand Dominance: Right Transfers Sit to Stand (QC): 6 Gait Mode of Locomotion: Walk Anticipated Mode of Locomotion: Walk Walk 10 feet (QC): 5 Walk 50 ft with 2 Turns(QC): 5 Walk 150 ft (QC): 5 Distance: 250' Gait Assistive Device: FWW Comments/Gait Description safe and functional with no deviation Balance Sitting Static: Normal Sitting Dynamic: Normal Standing Static: Normal Standing Dynamic: Normal Assessment/Needs Patient remains at [facility] with all gross motor skills safely and does not require skilled PT intervention at this time. Rehab Potential: Fair PT Mcfp Goals Mcfp Goals Does the Patient Walk: Yes PT Plan Treatment/Plan Treatment Plan: Discontinue PT Treatment Plan: Bed Mobility, Education, Functional Activity Cj, Functional Strength, Group Therapy, Gait, Safety, Therapeutic Exercise, Transfers Treatment Duration: Feb 06, 2023 Frequency: 1 time per week Estimated Hrs Per Day: .25 hour per day Patient and/or Family Agrees t: Yes Time Time In: 900 Time Out: 912 DATE: Feb 06, 2023 Total Billed Treatment Time: 12 [facility] T[facility] Feb 06, 2023 11:37
[2023-02-06 11:57] VITALS: BP 140/65
[2023-02-06 12:24] VITALS: BP 140/65
== END 2023-02-06 12:32 | disposition home health service (06) | DRG 872 ==
LOC: EDUNIT# 19:31 → ER 19:34 → 4TH 23:19
PROVIDERS: ADMIT Internal Medicine; ATTEND Internal Medicine
DX: A41.9 Sepsis, unspecified organism (principal); L03.115 Cellulitis of right lower limb; E87.20 Acidosis, unspecified; R65.20 Severe sepsis without septic shock; E11.9 Type 2 diabetes mellitus without complications; E78.00 Pure hypercholesterolemia, unspecified; I10 Essential (primary) hypertension; E83.42 Hypomagnesemia; B35.3 Tinea pedis; L30.4 Erythema intertrigo; B37.2 Candidiasis of skin and nail; E66.9 Obesity, unspecified; Z68.36 Body mass index [BMI] 36.0-36.9, adult; D64.9 Anemia, unspecified; Z20.822 Contact with and (suspected) exposure to COVID-19; H91.90 Unspecified hearing loss, unspecified ear; Z87.891 Personal history of nicotine dependence; Z79.84 Long term (current) use of oral hypoglycemic drugs
CPT/HCPCS: 36415; 71045; 71260; 73701; 74177; 80053; 80202; 81000; 82150; 82550; 82553; 82947; 83605; 83690; 83735; 83874; 83880; 84484; 85007; 85025; 85027; 85610; 85652; 85730; 86141; 87040; 87077; 87088; 87636; 93005; 93041; 94640; 94760; 94761

== ENCOUNTER → 2023-02-21 | Outpatient (CLI) | payer BC ==
[~2023-02-21] MED LIST changes: +ALBU18HF2 PO; +AMLO-251 PO; +AMOX1TAB12 PO; +ATOR10TA66 PO; +CALC-823 PO; +CELE400C10 PO; +DOXY100C5 PO; +FEXO180T84 PO; +GLIP5TAB13 PO; +HYDR25TA4 PO; -IRON SUCROSE 200 MG/10 ML (VENOFER) VIAL IV ONE; +LOSA100T58 PO; +METF-397 PO; +METO50TA7 PO; +MTP100TCR PO; +MULT-1136 PO; +PIOG45TA65 PO; +SPIR25TA5 PO
[2023-02-21 13:51] LABS: ABSOLUTE RETIC # 77 10e9/uL (24-90); BASOPHILS # (AUTO) 0.2 10^3/uL (0.0-0.1); BASOPHILS % (AUTO) 2 % (0-10); EOSINOPHILS # (AUTO) 0.5 10^3/uL (0.0-0.3); EOSINOPHILS % (AUTO) 5 % (0-10); HEMATOCRIT 34 % (35-52); HEMOGLOBIN 10.7 g/dL (11.5-16.0); LYMPHOCYTES # (AUTO) 1.6 10^3/uL (1.0-4.0); LYMPHOCYTES % (AUTO) 16 % (12-44); MEAN CORPUSCULAR HEMOGLOBIN 26 pg (25-34); MEAN CORPUSCULAR HGB CONC 32 g/dL (32-36); MEAN CORPUSCULAR VOLUME 81 fL (80-99); MEAN PLATELET VOLUME 8.8 fL (9.0-12.2); MONOCYTES % (AUTO) 9 % (0-12); NEUTROPHILS # (AUTO) 6.9 10^3/uL (1.8-7.8); NEUTROPHILS % (AUTO) 68 % (42-75); PLATELET COUNT 486 10^3/uL (130-400); RETICULOCYTE % 1.85 % (0.50-2.40); WHITE BLOOD COUNT 10.2 10^3/uL (4.3-11.0)
[2023-02-21 14:10] LABS: BAND NEUTROPHILS 0 %; BASOPHILS % (MANUAL) 0 %; EOSINOPHILS % (MANUAL) 4 %; LYMPHOCYTES % (MANUAL) 14 %; MONOCYTES % (MANUAL) 7 %; NEUTROPHILS % (MANUAL) 75 %; RBC MORPH NORMAL
== END ==
LOC: LAB 13:09
PROVIDERS: ATTEND Internal Medicine
DX: D64.9 Anemia, unspecified (principal)
CPT/HCPCS: 36415; 85007; 85027; 85045; 85055

== ENCOUNTER 2023-02-25 11:01 | Inpatient (IN) | payer BC ==
[~2023-02-25] VITALS: Ht 162.6 cm; Wt 95.0 kg
--- NOTE | 2023-02-25 11:28 | ED Integumentary General ---
General Chief Complaint: Skin/Wound Problems Stated Complaint: INFECTION IN RIGHT LEG Nursing Triage Note: pt presents to ED with c/o worsening cellulitis on right leg. pt was hospitalized for it on january 27 and had reactions to amoxicillin and doxycycline. pt began levofloxacin and clindamycin starting on feb 08. over the last couple of days, pt noticed the rash moving up her leg and to her thigh. Source: patient Exam Limitations: no limitations History of Present Illness Date Seen by Provider: Feb 25, 2023 Time Seen by Provider: 11:25 Initial Comments Patient is a 62-year-old female who presents ED for worsening cellulitis of her right lower extremity. She was diagnosed with cellulitis January 27. Patient was admitted until February 06. She received IV antibiotics with some improvement. She was discharged with amoxicillin and doxycycline had a potential allergic reaction to the antibiotics. She is currently taking clindamycin and Levaquin. She is noted some increased redness and swelling to right lower extremity with pain. She went to her primary care physician this week and states swelling and redness seems to be near its normal location below the right knee. She states the day redness and swelling has migrated up the right thigh. She denies of any fever, chills, nausea vomiting, diarrhea. She reports a small rash to her left arm. She does report some drainage from the right lower extremity but states this appears to be improving. She is diabetic. Denies history of CHF or chronic kidney disease. Allergies and Home Medications Allergies Coded Allergies: Sulfa (Sulfonamide Antibiotics) (Verified Allergy, Unknown, 02/03/23) diphenhydramine (Verified Allergy, Unknown, 02/03/23) Patient Home Medication List Home Medication List Reviewed: Yes Albuterol Sulfate (Ventolin Hfa) 90 Mcg Hfa.aer.ad, 2 PUFF PO Q8H PRN for SHORTNESS OF BREATH, (Reported) Entered as Reported by: KANDACE GARCIA on 01/29/23 1130 Amlodipine Besylate (Amlodipine Besylate) 10 Mg Tablet, 10 MG PO DAILY Prescribed by: MARTÍN ANDERSON on 02/06/23 1015 Amoxicillin/Potassium Clav (Amox Tr-K Clv 875-125 mg Tab) 875 Mg-125 Mg Tablet, 1 EACH PO BID Prescribed by: MARTÍN ANDERSON on 02/06/23 1017 Atorvastatin Calcium (Atorvastatin Calcium) 10 Mg Tablet, 10 MG PO HS, (Reported) Entered as Reported by: KANDACE GARCIA on 01/29/23 1130 Calcium Carbonate (Calcium) 500 Mg Calcium (1250 Mg) Tablet, 500 MG PO DAILY, (Reported) Entered as Reported by: KANDACE GARCIA on 01/29/23 113 Celecoxib (Celecoxib) 400 Mg Capsule, 400 MG PO HS, (Reported) Entered as Reported by: KANDACE GARCIA on 01/29/23 113 Doxycycline Hyclate (Doxycycline Hyclate) 100 Mg Capsule, 100 MG PO BID Prescribed by: MARTÍN ANDERSON on 02/06/23 1017 Fexofenadine HCl (Niurka Allergy) 180 Mg Tablet, 180 MG PO HS PRN for ALLERGIES, (Reported) Entered as Reported by: KANDACE GARCIA on 01/29/23 113 Glipizide (Glipizide) 5 Mg Tablet, 5 MG PO HS, (Reported) Entered as Reported by: KANDACE GARCIA on 01/29/23 113 Losartan Potassium (Losartan Potassium) 100 Mg Tablet, 100 MG PO DAILY, (Reported) Entered as Reported by: KANDACE GARCIA on 01/29/23 113 Metformin HCl (Metformin HCl) 500 Mg Tablet, 1,000 MG PO BID, (Reported) Entered as Reported by: KANDACE GARCIA on 01/29/23 1130 Metoprolol Succinate (Metoprolol Succinate) 100 Mg Tab.er.24h, 100 MG PO BID Prescribed by: MARTÍN ANDERSON on 02/06/23 1015 Multivitamin (Multivitamin) 1 Each Tablet, 1 EACH PO DAILY, (Reported) Entered as Reported by: KANDACE GARCIA on 01/29/23 1131 Pioglitazone HCl (Pioglitazone HCl) 45 Mg Tablet, 45 MG PO DAILY, (Reported) Entered as Reported by: KANDACE GARCIA on 01/29/23 113 Spironolactone (Spironolactone) 25 Mg Tablet, 25 MG PO DAILY Prescribed by: MARTÍN ANDERSON on 02/06/23 1015 Review of Systems Review of Systems Constitutional: No chills, No diaphoresis EENTM: No ear pain, No blurred vision, No double vision Respiratory: No cough, No dyspnea on exertion Cardiovascular: No chest pain Gastrointestinal: No abdominal pain, No diarrhea, No nausea, No vomiting Genitourinary: No decreased output, No discharge Musculoskeletal: No back pain, No joint pain; muscle pain Skin: change in color; No change in hair/nails Psychiatric/Neurological: Denies Depressed All Other Systems Reviewed Negative Unless Noted: Yes Past Asmkylz-Cfiwwz-Ffettq Hx Patient Social History Tobacco Use?: No Substance use?: No Alcohol Use?: No Pt feels they are or have been: No Seasonal Allergies Seasonal Allergies: No Past Medical History Surgeries: Yes Breast, Gallbladder, Oophorectomy Respiratory: Yes COPD Cardiac: No High Cholesterol, Hypertension Neurological: Yes Neuropathy Genitourinary: No Gastrointestinal: Yes Gall Bladder Disease Musculoskeletal: No Endocrine: Yes Diabetes, Non-Insulin dep HEENT: Yes Cataract Loss of Vision: Bilateral Hearing Impairment: Denies Cancer: No Psychosocial: No Integumentary: Yes Recent Skin Changes Blood Disorders: No Family Medical History Cardiovascular disease 19 FATHER, Onset:30's - 40 19 MOTHER, Onset:60 years & older (H/o PA. No bypass surgeries.) FH: COPD (chronic obstructive pulmonary disease) 19 FATHER, Onset:60 years & older 19 MOTHER, Onset:60 years & older FH: hepatitis G8 BROTHER, , Age:40's - 50, Onset:Unknown FH: prostate cancer 19 FATHER, Onset:30's - 40 G8 BROTHER, Onset:40's - 50 FH: sleep apnea G8 BROTHER, Onset:Unknown FH: uterine cancer 19 MOTHER, Onset:40's - 50 G8 SISTER, Onset:40's - 50 Fibromyalgia G8 BROTHER, Onset:Unknown G8 BROTHER, , Age:40's - 50, Onset:Unknown G8 SISTER, Onset:Unknown Hypertension 19 FATHER, Onset:60 years & older 19 MOTHER, Onset:60 years & older Kidney disease G8 SISTER, Onset:Unknown Osteoporosis 19 MOTHER, Onset:60 years & older Cancer, COPD, Hypertension, Renal Disease SOCIAL HISTORY: -SMOKED 1 PPD, QUIT AGE 38 -DENIES ALCOHOL USE -DENIES DRUG USE Physical Exam Vital Signs Vital Signs - First Documented 02/25/23 11:10 Pulse 78 Resp 18 B/P (MAP) 166/67 (100) Pulse Ox 97 O2 Delivery Room Air Capillary Refill : Less Than 3 Seconds General Appearance: WD/WN, no apparent distress HEENT: PERRL/EOMI, normal ENT inspection, TMs normal, pharynx normal Neck: non-tender, full range of motion, supple, normal inspection Cardiovascular: regular rate, rhythm, no edema, no gallop, no JVD Respiratory: chest non-tender, lungs clear, normal breath sounds, no respiratory distress, no accessory muscle use Gastrointestinal: normal bowel sounds, non tender, soft, no organomegaly, no pulsatile mass Back: no CVA tenderness, no vertebral tenderness Extremities: other (Erythema swelling noted to the right lower extremity. Erythema up to the right lateral upper leg. Crusting noted to right lower extremity with mild serous drainage.) Neurologic/Psychiatric: gift consultant II-XII nml as tested, no motor/sensory deficits, alert, normal mood/affect, oriented x 3 Skin: other (Erythema and swelling noted to the right lower extremity with crusting and serous drainage distally. Erythematous streaking with erythematous papular rash to the right lateral upper leg.) Progress/Results/Core Measures Results/Orders Lab Results Laboratory Tests Test 02/25/23 11:40 02/25/23 12:39 Range/Units White Blood Count 9.8 4.3-11.0 10^3/uL Red Blood Count 3.96 3.80-5.11 10^6/uL Hemoglobin 10.3 L 11.5-16.0 g/dL Hematocrit 32 L 35-52 % Mean Corpuscular Volume 81 80-99 fL Mean Corpuscular Hemoglobin 26 25-34 pg Mean Corpuscular Hemoglobin Concent 32 32-36 g/dL Red Cell Distribution Width 14.1 10.0-14.5 % Platelet Count 362 130-400 10^3/uL Mean Platelet Volume 8.7 L 9.0-12.2 fL Immature Granulocyte % (Auto) 0 % Neutrophils (%) (Auto) 64 42-75 % Lymphocytes (%) (Auto) 17 12-44 % Monocytes (%) (Auto) 12 0-12 % Eosinophils (%) (Auto) 6 0-10 % Basophils (%) (Auto) 1 0-10 % Neutrophils # (Auto) 6.2 1.8-7.8 10^3/uL Lymphocytes # (Auto) 1.6 1.0-4.0 10^3/uL Monocytes # (Auto) 1.2 H 0.0-1.0 10^3/uL Eosinophils # (Auto) 0.6 H 0.0-0.3 10^3/uL Basophils # (Auto) 0.1 0.0-0.1 10^3/uL Immature Granulocyte # (Auto) 0.0 0.0-0.1 10^3/uL Prothrombin Time 13.0 12.2-14.7 SEC INR Comment 1.0 0.8-1.4 Activated Partial Thromboplast Time 31 24-35 SEC Sodium Level 122 *L 135-145 MMOL/L Potassium Level 4.6 3.6-5.0 MMOL/L Chloride Level 88 L 98-107 MMOL/L Carbon Dioxide Level 21 21-32 MMOL/L Anion Gap 13 5-14 MMOL/L Blood Urea Nitrogen 15 7-18 MG/DL Creatinine 0.80 0.60-1.30 MG/DL Estimat Glomerular Filtration Rate 82 BUN/Creatinine Ratio 19 Glucose Level 155 H 70-105 MG/DL Lactic Acid Level 1.75 0.50-2.00 MMOL/L Calcium Level 9.7 8.5-10.1 MG/DL Corrected Calcium 9.6 8.5-10.1 MG/DL Total Bilirubin 0.4 0.1-1.0 MG/DL Aspartate Amino Transf (AST/SGOT) 19 5-34 U/L Alanine Aminotransferase (ALT/SGPT) 14 0-55 U/L Alkaline Phosphatase 61 40-136 U/L Total Protein 7.9 6.4-8.2 GM/DL Albumin 4.1 3.2-4.5 GM/DL Urine Color YELLOW Urine Clarity CLEAR Urine pH 6.5 5-9 Urine Specific [place] 1.010 L 1.016-1.022 Urine Protein NEGATIVE NEGATIVE Urine Glucose (UA) NEGATIVE NEGATIVE Urine Ketones NEGATIVE NEGATIVE Urine Nitrite NEGATIVE NEGATIVE Urine Bilirubin NEGATIVE NEGATIVE Urine Urobilinogen 0.2 < = 1.0 MG/DL Urine Leukocyte Esterase NEGATIVE NEGATIVE Urine RBC (Auto) NEGATIVE NEGATIVE Urine RBC NONE /HPF Urine WBC NONE /HPF Urine Squamous Epithelial Cells RARE /HPF Urine Crystals NONE /LPF Urine Leucine Crystals /LPF Urine Bacteria NEGATIVE /HPF Urine Casts NONE /LPF Urine Mucus NEGATIVE /LPF Urine Culture Indicated CULTURE PENDING My Orders Orders - SHELLIE BROWN Cbc With Automated Diff (02/25/23 11:23) Comprehensive Metabolic Panel (02/25/23 11:23) Blood Culture (02/25/23 11:23) Urinalysis (02/25/23 11:23) Urine Culture (02/25/23 11:23) Protime With Inr (02/25/23 11:23) Partial Thromboplastin Time (02/25/23 11:23) Ed Iv/Invasive Line Start (02/25/23 11:23) Vital Signs Adult Sepsis Patie Q15M (02/25/23 11:23) Lactic Acid Analyzer (02/25/23 11:23) Ns Iv 1000 Ml (Ns Iv 1000 Ml) (02/25/23 11:30) Cefepime Injection (Cefepime Injection) (02/25/23 11:30) Vancomycin Injection (Vancomycin Injecti (02/25/23 11:30) Ct Extremity Lower Right W (02/25/23 12:24) Ed Admission (Communication) (02/25/23 12:26) Ekg Tracing (02/25/23 12:28) Iohexol Injection (Omnipaque 350 Mg/Ml 1 (02/25/23 12:45) Ns (Ivpb) 100 Ml (Sodium Chloride 0.9% 1 (02/25/23 12:45) Medications Given in ED Current Medications Medications Dose Ordered Sig/Matilde Route Start Time Stop Time Status Last Admin Dose Admin Cefepime HCl 1000 mg/Sodium Chloride 50 ml @ 100 mls/hr ONCE ONCE IV 02/25/23 11:30 02/25/23 11:59 DC 02/25/23 12:04 100 MLS/HR Iohexol 100 ml ONCE ONCE IV 02/25/23 12:45 02/25/23 12:46 DC 02/25/23 12:57 80 ML Sodium Chloride 100 ml ONCE ONCE IV 02/25/23 12:45 02/25/23 12:46 DC 02/25/23 12:57 80 ML Vancomycin HCl 1000 mg/Sodium Chloride 250 ml @ 250 mls/hr ONCE ONCE IV 02/25/23 11:30 02/25/23 12:29 DC 02/25/23 12:39 250 MLS/HR Vital Signs/I&O 02/25/23 11:10 Pulse 78 Resp 18 B/P (MAP) 166/67 (100) Pulse Ox 97 O2 Delivery Room Air Blood Pressure Mean: 100 Comment Sinus rhythm, low QRS voltage precordial leads, 77 bpm, QRS duration 89 MS, QTc 380 MS Departure Communication (PCP) Reviewed previous ER visits, H&P, lab testing. Differential diagnosis, cellulitis, soft tissue abscess, osteomyelitis. Patient complaining of redness and swelling and pain to her right lower extremity. Patient was admitted early January for cellulitis. Discharge with antibiotics when she was discharged and is still taking. Currently on Levaquin and clindamycin. Increased redness and swelling and pain. Redness migrating up the right lateral leg which is noted. No active purulent drainage of the lower extremity. Mild serous drainage but there is crusting distally. She is afebrile with stable vital signs. Blood cultures added with lactic acid. CBC, CMP was ordered. CBC was grossly unrema rkable, chemistry showed sodium 122, chloride 88. She states she does feel dry at night. She states she has been urinating without difficulties. She is diabetic. Blood sugar 155. Urinalysis was ordered which was negative for infection. Normal kidney function. Denies history of CHF. Currently on spironolactone. Did order a liter of fluid. Appear dry. Patient was started o n cefepime and vancomycin. She states she had a reaction to amoxicillin or doxycycline earlier this month so Zosyn was held. Concern for failed outpatient therapy. Recommend admission for IV antibiotics. Discussed patient with Dr. Anderson who agreed to accept patient. Recommend CT scan of the lower leg to rule out potential fluid collection, bony destruction. CT scan shows no fluid collection but there is Increasing subcutaneous stranding and skin thickening in keeping with cellulitis. No evidence suggesting osteomyelitis No EKG changes for low sodium. Denies any dizziness, headache, nausea, confusion, muscle weakness or seizures Impression Primary Impression: Cellulitis Additional Impression: Hyponatremia Disposition: ADMITTED INPATIENT Condition: Stable Admissions Decision to Admit Reason: Admit from ER (General) Decision to Admit/Date: Feb 25, 2023 Time/Decision to Admit Time: 12:28 Departure-Patient Inst. Referrals: JONNIE JARA MD (PCP/Family) Primary Care Physician SHELLIE BROWN Feb 25, 2023 11:28
[2023-02-25] MEDS ORDERED: NS IV 1000 ML 1,000 ML IV SCH ×2 (11:30→14:45)
[2023-02-25] MEDS ORDERED: VANCOMYCIN INJECTION 1,000 MG in NS (IVPB) 250 ML 250 ML IV ONE (11:30)
[2023-02-25] MEDS ORDERED: CEFEPIME INJECTION 1,000 MG in NS (IVPB) 50 ML 50 ML IV ONE (11:30)
[2023-02-25 11:53] LABS: BASOPHILS # (AUTO) 0.1 10^3/uL (0.0-0.1); BASOPHILS % (AUTO) 1 % (0-10); EOSINOPHILS # (AUTO) 0.6 10^3/uL (0.0-0.3); EOSINOPHILS % (AUTO) 6 % (0-10); HEMATOCRIT 32 % (35-52); HEMOGLOBIN 10.3 g/dL (11.5-16.0); LYMPHOCYTES # (AUTO) 1.6 10^3/uL (1.0-4.0); LYMPHOCYTES % (AUTO) 17 % (12-44); MEAN CORPUSCULAR HEMOGLOBIN 26 pg (25-34); MEAN CORPUSCULAR HGB CONC 32 g/dL (32-36); MEAN CORPUSCULAR VOLUME 81 fL (80-99); MEAN PLATELET VOLUME 8.7 fL (9.0-12.2); MONOCYTES # (AUTO) 1.2 10^3/uL (0.0-1.0); MONOCYTES % (AUTO) 12 % (0-12); NEUTROPHILS # (AUTO) 6.2 10^3/uL (1.8-7.8); NEUTROPHILS % (AUTO) 64 % (42-75); PLATELET COUNT 362 10^3/uL (130-400); WHITE BLOOD COUNT 9.8 10^3/uL (4.3-11.0)
[2023-02-25 12:13] LABS: ALBUMIN 4.1 GM/DL (3.2-4.5); BILIRUBIN,TOTAL 0.4 MG/DL (0.1-1.0); CALCIUM 9.7 MG/DL (8.5-10.1); CREATININE SERUM 0.8 MG/DL (0.60-1.30); POTASSIUM 4.6 MMOL/L (3.6-5.0); TOTAL PROTEIN 7.9 GM/DL (6.4-8.2)
[2023-02-25] MEDS ORDERED: IOHEXOL 350 MG/ML 100 ML (OMNIPAQUE 350) VIAL IV ONE (12:45)
[2023-02-25] MEDS ORDERED: NS 100 ML (IVPB) BAG IV ONE (12:45)
[2023-02-25 12:59] LABS: BILIRUBIN,URINE NEGATIVE (NEGATIVE); CLARITY,URINE CLEAR; COLOR,URINE YELLOW; GLUCOSE, URINE (UA) NEGATIVE (NEGATIVE); KETONES,URINE NEGATIVE (NEGATIVE); NITRITE,URINE NEGATIVE (NEGATIVE); PH,URINE 6.5 (5-9); PROTEIN,URINE NEGATIVE (NEGATIVE)
[2023-02-25 13:00] LABS: BACTERIA,URINE NEGATIVE /HPF; LEUKOCYTE ESTERASE ,URINE NEGATIVE (NEGATIVE); SQUAMOUS EPITHELIAL CELL,UR RARE /HPF
--- NOTE | 2023-02-25 13:21 | Diagnostic Imaging Report ---
PROCEDURE: CT right lower extremity with contrast. TECHNIQUE: Multiple contiguous axial CT images of the right extremity were obtained after intravenous administration of iodinated contrast. Auto Exposure Controls were utilized during the CT exam to meet ALARA standards for radiation dose reduction. INDICATION: Cellulitis COMPARISON: 02/05/2023 FINDINGS: There is subcutaneous stranding throughout the right lower extremity. No drainable fluid collection. The soft tissue stranding has increased. There is skin thickening. No soft tissue gas. There is a knee joint effusion. There is no fracture. IMPRESSION: 1. Increasing subcutaneous stranding and skin thickening in keeping with cellulitis. No drainable fluid collection or erosions to indicate osteomyelitis. Dictated by: Dictated on workstation # [id number]
[2023-02-25] MEDS ORDERED: diphenhydrAMINE 25 MG TABLET PO PRN (14:45)
[2023-02-25] MEDS ORDERED: NS IV 500 ML 500 ML IV PRN (14:45)
[2023-02-25] MEDS ORDERED: ONDANSETRON INJECTION 4 MG/2 ML (SDV) IV PRN (14:45)
[2023-02-25] MEDS ORDERED: diphenhydrAMINE INJ 50 MG/ML VIAL IVP PRN (14:45)
[2023-02-25] MEDS ORDERED: ONDANSETRON 4 MG ORAL DISSOLVE TABLET PO PRN (14:45)
[2023-02-25] MEDS ORDERED: BISACODYL 10 MG SUPPOSITORY PR PRN (14:45)
[2023-02-25] MEDS ORDERED: LACTULOSE SYRUP 10GM/15ML 30ML UDC PO PRN (14:45)
[2023-02-25] MEDS ORDERED: VANCOMYCIN INJECTION 0.1 MG in NS (IVPB) 250 ML 250 ML IV SCH (14:45)
[2023-02-25] MEDS ORDERED: MILK OF MAGNESIA 400 MG/5 ML 30 ML UDC PO PRN (14:45)
[2023-02-25] MEDS ORDERED: VANCOMYCIN 750 MG/NS 250 ML IVPB IV NR ×2 (15:00)
[2023-02-25 15:18] VITALS: BP 132/80
[2023-02-25] MEDS: ENOXAPARIN 40 MG/0.4 ML SYRINGE SC SCH (15:47)
[2023-02-25] MEDS: inSUlin ASPART 1 UNIT/0.01 ML (PER UNIT) SC SCH ×2 (17:16→20:48)
[2023-02-25] MEDS: CEFEPIME INJECTION 1,000 MG in NS (IVPB) 50 ML 50 ML IV SCH (17:34)
--- NOTE | 2023-02-25 19:12 | Consultation - Surgery ---
AVELINA FLORES 02/25/231911: History of Present Illness History of Present Illness Patient Consulted On(adolfo/time) 02/25/23 19:07 Date Seen by Provider: Feb 25, 2023 Time Seen by Provider: 19:07 Reason for Visit: R lower extremity cellulitis History of Present Illness Patient is a 62-y/o female who presents for worsening cellulitis of her right lower extremity. She was originally diagnosed with cellulitis 01/27/23. Patient was admitted until 02/06/23. She received IV antibiotics with some improvement. She was discharged with amoxicillin and doxycycline. She reports that she experienced a rash from head to toe and discontinued those antibiotics. Started on levofloaxcin and clindamycin. She reports that the rash reappeared on the R lower extremity the day after she was discharged and never fully resolved. She states that today she presented to the ED again because the R lower extremity redness started migrating up her lateral thigh. She reports that the rash is bright red like the last time she was admitted and is mildly tender to palpation. She reports hives again with antibiotics but states her rxn is better than the one previously. Pt is diabetic. Consult requested by Dr. Anderson Allergies and Home Medications Allergies Coded Allergies: Sulfa (Sulfonamide Antibiotics) (Verified Allergy, Unknown, 02/03/23) diphenhydramine (Verified Allergy, Unknown, 02/03/23) Patient Home Medication List Home Medication List Reviewed: Yes Albuterol Sulfate (Ventolin Hfa) 90 Mcg Hfa.aer.ad, 2 PUFF PO Q8H PRN for SHORTNESS OF BREATH, (Reported) Entered as Reported by: KANDACE GARCIA on 01/29/23 1130 Last Action: Held Amlodipine Besylate (Amlodipine Besylate) 10 Mg Tablet, 10 MG PO DAILY Prescribed by: MARTÍN ANDERSON on 02/06/23 1015 Last Action: Held Atorvastatin Calcium (Atorvastatin Calcium) 10 Mg Tablet, 10 MG PO HS, (Rep orted) Entered as Reported by: KANDACE GARCIA on 01/29/23 1130 Last Action: Continued Calcium Carbonate (Calcium) 500 Mg Calcium (1250 Mg) Tablet, 500 MG PO DAILY, (Reported) Entered as Reported by: KANDACE GARCIA on 01/29/23 1131 Last Action: Held Celecoxib (Celecoxib) 400 Mg Capsule, 400 MG PO HS, (Reported) Entered as Reported by: KANDACE GARCIA on 01/29/231129 Last Action: Continued Doxycycline Hyclate (Doxycycline Hyclate) 100 Mg Capsule, 100 MG PO BID Prescribed by: MARTÍN ANDERSON on 02/06/23 101 Last Action: Held Fexofenadine HCl (Niurka Allergy) 180 Mg Tablet, 180 MG PO HS PRN for ALLERGIES, (Reported) Entered as Reported by: KANDACE GARCIA on 01/29/231129 Last Action: Held Glipizide (Glipizide) 5 Mg Tablet, 5 MG PO HS, (Reported) Entered as Reported by: KANDACE GARCIA on 01/29/231129 Last Action: Held Losartan Potassium (Losartan Potassium) 100 Mg Tablet, 100 MG PO DAILY, (Reported) Entered as Reported by: KANDACE GARCIA on 01/29/231129 Last Action: Continued Metoprolol Succinate (Metoprolol Succinate) 100 Mg Tab.er.24h, 100 MG PO BID Prescribed by: MARTÍN ANDERSON on 02/06/23 101 Last Action: Held Multivitamin (Multivitamin) 1 Each Tablet, 1 EACH PO DAILY, (Reported) Entered as Reported by: KANDACE GARCIA on 01/29/231130 Last Action: Held Pioglitazone HCl (Pioglitazone HCl) 45 Mg Tablet, 45 MG PO DAILY, (Reported) Entered as Reported by: KANDACE GARCIA on 01/29/231129 Last Action: Held Spironolactone (Spironolactone) 25 Mg Tablet, 25 MG PO DAILY Prescribed by: MARTÍN ANDERSON on 02/06/23 101 Last Action: Continued Discontinued Medications Amoxicillin/Potassium Clav (Amox Tr-K Clv 875-125 mg Tab) 875 Mg-125 Mg Tablet, 1 EACH PO BID Discontinued Reason: No Longer Taking Prescribed by: MARTÍN ANDERSON on 02/06/23 101 Last Action: Discontinued Metformin HCl (Metformin HCl) 500 Mg Tablet, 1,000 MG PO BID, (Reported) Discontinued Reason: No Longer Taking Entered as Reported by: KANDACE GARCIA on 01/29/231129 Last Action: Discontinued Past Yenmias-Wsxxeq-Gujmzl Hx Patient Social History Smoking Status: Former Smoker Type Used: Cigarettes 2nd Hand Smoke Exposure: No Recent Hopitalizations: No Alcohol Use?: No Seasonal Allergies Seasonal Allergies: No Surgeries History of Surgeries: Yes Surgeries: Breast, Gallbladder Respiratory History of Respiratory Disorde: Yes Respiratory Disorders: COPD Cardiovascular History of Cardiac Disorders: No Cardiac Disorders: High Cholesterol, Hypertension Neurological History of Neurological Disord: Yes Neurological Disorders: Neuropathy Reproductive System : No Genitourinary History of Genitourinary Disor: No Gastrointestinal History of Gastrointestinal Di: Yes Gastrointestinal Disorders: Gall Bladder Disease Musculoskeletal History of Musculoskeletal Dis: No Endocrine History of Endocrine Disorders: Yes Endocrine Disorders: Diabetes, Non-Insulin dep HEENT History of HEENT Disorders: Yes HEENT Disorders: Cataract Loss of Vision: Bilateral Hearing Impairment: Denies Cancer History of Cancer: No Psychosocial History of Psychiatric Problem: No Integumentary History of Skin or Integumenta: Yes Skin/Integumentary Disorders: Recent Skin Changes Blood Transfusions History of Blood Disorders: No Family Medical History Significant Family History: Cancer, COPD, Hypertension, Renal Disease Family Medial History: Cardiovascular disease 19 FATHER, Onset:30's - 40 19 MOTHER, Onset:60 years & older (H/o MD. No bypass surgeries.) FH: COPD (chronic obstructive pulmonary disease) 19 FATHER, Onset:60 years & older 19 MOTHER, Onset:60 years & older FH: hepatitis G8 BROTHER, , Age:40's - 50, Onset:Unknown FH: prostate cancer 19 FATHER, Onset:30's - 40 G8 BROTHER, Onset:40's - 50 FH: sleep apnea G8 BROTHER, Onset:Unknown FH: uterine cancer 19 MOTHER, Onset:40's - 50 G8 SISTER, Onset:40's - 50 Fibromyalgia G8 BROTHER, Onset:Unknown G8 BROTHER, , Age:40's - 50, Onset:Unknown G8 SISTER, Onset:Unknown Hypertension 19 FATHER, Onset:60 years & older 19 MOTHER, Onset:60 years & older Kidney disease G8 SISTER, Onset:Unknown Osteoporosis 19 MOTHER, Onset:60 years & older Review of Systems-General Constitutional: No chills, No dizziness EENTM: No blurred vision, No double vision Respiratory: No cough; dyspnea on exertion, short of breath Cardiovascular: No chest pain, No palpitations Gastrointestinal: No abdominal pain, No diarrhea Genitourinary: No decreased output, No discharge : No Musculoskeletal: No back pain, No muscle pain Skin: change in color, dryness, pruritus, rash (R lower extremity erythema that extends from the dorsum of the foot up to the lateral R thigh. Multiple scaling white plaques on R ankle. ) Psychiatric/Neurological: Denies Anxiety, Denies Depressed Physical Exam-General Problems Physical Exam Vital Signs Vital Signs - First Documented 02/25/23 02/25/23 11:10 15:18 Temp 36.6 Pulse 78 Resp 18 B/P (MAP) 166/67 (100) Pulse Ox 97 O2 Delivery Room Air Capillary Refill : Less Than 3 Seconds General Appearance: WD/WN, no apparent distress HEENT: PERRL/EOMI, TMs normal Neck: non-tender, full range of motion Respiratory: no respiratory distress, no accessory muscle use Cardiovascular: regular rate, rhythm, no murmur Peripheral Pulses: 2+ Radial Pulses (R), 2+ Radial Pulses (L) Gastrointestinal: non tender, soft Rectal: normal exam, normal rectal tone Genital/Rectal: normal genital exam, normal rectal exam Back: normal inspection, no vertebral tenderness Extremities: inflammation, swelling Neurologic/Psychiatric: no motor/sensory deficits, alert, oriented x 3 Reflexes: 2+ Bicep (R), 2+ Bicep (L) Skin: warm/dry, rash (R lower extremity erythema that extends from the dorsum of the foot up to the lateral R thigh. Multiple scaling white plaques on R ankle. Mildly tender to palpation) Lymphatic: no adenopathy Data Review Labs Laboratory Tests 02/25/23 11:40: White Blood Count 9.8, Red Blood Count 3.96, Hemoglobin 10.3L, Hematocrit 32L, Mean Corpuscular Volume 81, Mean Corpuscular Hemoglobin 26, Mean Corpuscular Hemoglobin Concent 32, Red Cell Distribution Width 14.1, Platelet Count 362, Mean Platelet Volume 8.7L, Immature Granulocyte % (Auto) 0, Neutrophils (%) (Auto) 64, Lymphocytes (%) (Auto) 17, Monocytes (%) (Auto) 12, Eosinophils (%) (Auto) 6, Basophils (%) (Auto) 1, Neutrophils # (Auto) 6.2, Lymphocytes # (Auto) 1.6, Monocytes # (Auto) 1.2H, Eosinophils # (Auto) 0.6H, Basophils # (Auto) 0.1, Immature Granulocyte # (Auto) 0.0, Prothrombin Time 13.0, INR Comment 1.0, Activated Partial Thromboplast Time 31, Sodium Level 122*L, Potassium Level 4.6, Chloride Level 88L, Carbon Dioxide Level 21, Anion Gap 13, Blood Urea Nitrogen 15, Creatinine 0.80, Estimat Glomerular Filtration Rate 82, BUN/Creatinine Ratio 19, Glucose Level 155H, Lactic Acid Level 1.75, Calcium Level 9.7, Corrected Calcium 9.6, Total Bilirubin 0.4, Aspartate Amino Transf (AST/SGOT) 19, Alanine Aminotransferase (ALT/SGPT) 14, Alkaline Phosphatase 61, Total Protein 7.9, Albumin 4.1 02/25/23 12:39: Urine Color YELLOW, Urine Clarity CLEAR, Urine pH 6.5, Urine Specific Hazard 1.010L, Urine Protein NEGATIVE, Urine Glucose (UA) NEGATIVE, Urine Ketones NEGATIVE, Urine Nitrite NEGATIVE, Urine Bilirubin NEGATIVE, Urine Urobilinogen 0.2, Urine Leukocyte Esterase NEGATIVE, Urine RBC (Auto) NEGATIVE, Urine RBC NONE, Urine WBC NONE, Urine Squamous Epithelial Cells RARE, Urine Crystals NONE, Urine Leucine Crystals , Urine Bacteria NEGATIVE, Urine Casts NONE, Urine Mucus NEGATIVE, Urine Culture Indicated CULTURE PENDING 02/25/23 15:56: Glucometer 158H 02/25/23 17:11: Sodium Level 128L Assessment/Plan Assessment/Plan Admission Diagonsis R Lower extremity cellulitis Assessment/Plan R Lower extremity Cellulitis Anemia Hyponatremia Continue vancomycin and cefepime and monitor. CT scan today shows no fluid collection but there is increasing subcutaneous stranding and skin thickening in keeping with cellulitis. No evidence suggesting osteomyelitis. Hgb is 10.3 today. Monitor Na was 122 today and was retaken and is now 128. Monitor. MICHELE JONES DO 02/25/232050: History of Present Illness History of Present Illness History of Present Illness Consult requested by Dr. Anderson for rle cellulitis. Patient is 62 year old female with worsening cellulitis. Was previously a dmitted for about 10 days and discharged. Once stopped her antibiotics the erythema began to worsen. Today the erythema began spreading up the lateral aspect of her right leg and went to er. Mild discomfort to the right leg. It itches. She states the redness has already regressed a little. Had ct scan consistent with cellulitis. Allergies and Home Medications Allergies Coded Allergies: Sulfa (Sulfonamide Antibiotics) (Verified Allergy, Unknown, 02/03/23) diphenhydramine (Verified Allergy, Unknown, 02/03/23) Patient Home Medication List Home Medication List Reviewed: Yes Albuterol Sulfate (Ventolin Hfa) 90 Mcg Hfa.aer.ad, 2 PUFF PO Q8H PRN for S HORTNESS OF BREATH, (Reported) Entered as Reported by: KANDACE GARCIA on 01/29/231129 Last Action: Held Amlodipine Besylate (Amlodipine Besylate) 10 Mg Tablet, 10 MG PO DAILY Prescribed by: MARTÍN ANDERSON on 02/06/23 1015 Last Action: Held Atorvastatin Calcium (Atorvastatin Calcium) 10 Mg Tablet, 10 MG PO HS, (Reported) Entered as Reported by: KANDACE GARCIA on 01/29/23 113 Last Action: Continued Calcium Carbonate (Calcium) 500 Mg Calcium (1250 Mg) Tablet, 500 MG PO DAILY, (Reported) Entered as Reported by: KANDACE GARCIA on 01/29/231130 Last Action: Held Celecoxib (Celecoxib) 400 Mg Capsule, 400 MG PO HS, (Reported) Entered as Reported by: KANDACE GARCIA on 01/29/231129 Last Action: Continued Doxycycline Hyclate (Doxycycline Hyclate) 100 Mg Capsule, 100 MG PO BID Prescribed by: MARTÍN ANDERSON on 02/06/23 1017 Last Action: Held Fexofenadine HCl (Niurka Allergy) 180 Mg Tablet, 180 MG PO HS PRN for ALLERGIES, (Reported) Entered as Reported by: KANDACE GARCIA on 01/29/231129 Last Action: Held Glipizide (Glipizide) 5 Mg Tablet, 5 MG PO HS, (Reported) Entered as Reported by: KANDACE GARCIA on 01/29/23 113 Last Action: Held Losartan Potassium (Losartan Potassium) 100 Mg Tablet, 100 MG PO DAILY, (Reported) Entered as Reported by: KANDACE GARCIA on 01/29/23 113 Last Action: Continued Metoprolol Succinate (Metoprolol Succinate) 100 Mg Tab.er.24h, 100 MG PO BID Prescribed by: MARTÍN ANDERSON on 02/06/23 1015 Last Action: Held Multivitamin (Multivitamin) 1 Each Tablet, 1 EACH PO DAILY, (Reported) Entered as Reported by: KANDACE GARCIA on 01/29/23 113 Last Action: Held Pioglitazone HCl (Pioglitazone HCl) 45 Mg Tablet, 45 MG PO DAILY, (Reported) Entered as Reported by: KANDACE GARCIA on 01/29/231129 Last Action: Held Spironolactone (Spironolactone) 25 Mg Tablet, 25 MG PO DAILY Prescribed by: MARTÍN ANDERSON on 02/06/23 1015 Last Action: Continued Discontinued Medications Amoxicillin/Potassium Clav (Amox Tr-K Clv 875-125 mg Tab) 875 Mg-125 Mg Tablet, 1 EACH PO BID Discontinued Reason: No Longer Taking Prescribed by: MARTÍN ANDERSON on 02/06/23 1017 Last Action: Discontinued Metformin HCl (Metformin HCl) 500 Mg Tablet, 1,000 MG PO BID, (Reported) Discontinued Reason: No Longer Taking Entered as Reported by: KANDACE GARCIA on 01/29/231129 Last Action: Discontinued Past Nkboqik-Kicbbo-Zahgte Hx Reviewed Nursing Assessment Reviewed/Agree w Nursing PMH: Yes Family Medical History Significant Family History: No Pertinent Family Hx Family Medial History: Cardiovascular disease 19 FATHER, Onset:30's - 40 19 MOTHER, Onset:60 years & older (H/o MD. No bypass surgeries.) FH: COPD (chronic obstructive pulmonary disease) 19 FATHER, Onset:60 years & older 19 MOTHER, Onset:60 years & older FH: hepatitis G8 BROTHER, , Age:40's - 50, Onset:Unknown FH: prostate cancer 19 FATHER, Onset:30's - 40 G8 BROTHER, Onset:40's - 50 FH: sleep apnea G8 BROTHER, Onset:Unknown FH: uterine cancer 19 MOTHER, Onset:40's - 50 G8 SISTER, Onset:40's - 50 Fibromyalgia G8 BROTHER, Onset:Unknown G8 BROTHER, , Age:40's - 50, Onset:Unknown G8 SISTER, Onset:Unknown Hypertension 19 FATHER, Onset:60 years & older 19 MOTHER, Onset:60 years & older Kidney disease G8 SISTER, Onset:Unknown Osteoporosis 19 MOTHER, Onset:60 years & older Review of Systems-General Constitutional: No chills, No dizziness EENTM: No blurred vision, No double vision Respiratory: No cough, No dyspnea on exertion, No short of breath Cardiovascular: No chest pain, No palpitations Gastrointestinal: No abdominal pain, No diarrhea, No nausea, No vomiting Genitourinary: No decreased output, No discharge Musculoskeletal: No back pain, No muscle pain Skin: change in color, pruritus, rash (R lower extremity erythema that extends from the dorsum of the foot up to the lateral R thigh. Multiple scaling white plaques on R ankle. ) Psychiatric/Neurological: Denies Anxiety, Denies Depressed, Denies Emotional Problems All Other Systems Reviewed Negative Unless Noted: Yes (Negative excepted noted.) Physical Exam-General Problems Physical Exam General Appearance: WD/WN, no apparent distress, obese HEENT: PERRL/EOMI, TMs normal Neck: non-tender, full range of motion Respiratory: chest non-tender, no respiratory distress, no accessory muscle use Cardiovascular: regular rate, rhythm, no JVD Gastrointestinal: non tender, soft Rectal: deferred Back: no CVA tenderness, no vertebral tenderness Extremities: inflammation, swelling Neurologic/Psychiatric: no motor/sensory deficits, alert, oriented x 3 Skin: warm/dry, rash (R lower extremity erythema that extends from the dorsum of the foot up to the lateral R thigh. Multiple scaling white plaques on R ankle. Mildly tender to palpation, area of very superficial breakdown) Lymphatic: no adenopathy Assessment/Plan Assessment/Plan Assessment/Plan R Lower extremity Cellulitis failed outpatient management Anemia Hyponatremia Continue vancomycin and cefepime and monitor. CT scan today shows no fluid collection but there is increasing subcutaneous stranding and skin thickening in keeping with cellulitis. No evidence suggesting osteomyelitis. Hgb is 10.3 today. Monitor Na was 122 today and was retaken and is now 128. Monitor. Supervisory-Addendum Brief Verification & Attestation Participated in pt care: history, MDM, physical Personally performed: exam, history, MDM, supervision of care Care discussed with: Medical Student Procedures: n/a Results interpretation: Verified all documentation Verification and Attestation of Medical Student E/M Service A medical student performed and documented this service in my presence. I reviewed and verified all information documented by the medical student and made modifications to such information, when appropriate. I personally performed the physical exam and medical decision making. Michele Jones, Feb 25, 2023,20:52 AVELINA FLORES Feb 25, 2023 19:12 MICHELE JONES DO Feb 25, 2023 20:51
[2023-02-25 20:16] VITALS: BP 157/80
[2023-02-25] MEDS: CELECOXIB 400 MG CAPSULE PO SCH (20:49)
[2023-02-25] MEDS: DOCUSATE SODIUM 100 MG CAPSULE PO SCH (20:49)
[2023-02-25] MEDS: SENNOSIDES 8.6 MG TABLET PO SCH (20:49)
[2023-02-25] MEDS: VANCOMYCIN 1250 MG/NS 250 ML PREMIX IV SCH (23:04)
[2023-02-25 23:09] VITALS: BP 122/80
[2023-02-26] MEDS: CEFEPIME INJECTION 1,000 MG in NS (IVPB) 50 ML 50 ML IV SCH ×5 (00:11→23:30)
[2023-02-26] MEDS: ACETAMINOPHEN 325 MG TABLET PO PRN (00:57)
[2023-02-26 04:35] VITALS: BP 105/65
[2023-02-26] MEDS: inSUlin ASPART 1 UNIT/0.01 ML (PER UNIT) SC SCH ×4 (06:08→21:55)
[2023-02-26 06:46] LABS: BASOPHILS % (AUTO) 0 % (0-10); EOSINOPHILS # (AUTO) 0.6 10^3/uL (0.0-0.3); EOSINOPHILS % (AUTO) 6 % (0-10); HEMATOCRIT 36 % (35-52); HEMOGLOBIN 11.5 g/dL (11.5-16.0); LYMPHOCYTES # (AUTO) 0.7 10^3/uL (1.0-4.0); LYMPHOCYTES % (AUTO) 7 % (12-44); MEAN CORPUSCULAR HEMOGLOBIN 26 pg (25-34); MEAN CORPUSCULAR HGB CONC 32 g/dL (32-36); MEAN CORPUSCULAR VOLUME 81 fL (80-99); MEAN PLATELET VOLUME 8.8 fL (9.0-12.2); MONOCYTES # (AUTO) 0.4 10^3/uL (0.0-1.0); MONOCYTES % (AUTO) 4 % (0-12); NEUTROPHILS % (AUTO) 83 % (42-75); PLATELET COUNT 198 10^3/uL (130-400); WHITE BLOOD COUNT 9.7 10^3/uL (4.3-11.0)
[2023-02-26 07:04] LABS: SMEAR SCAN COMMENT YES
[2023-02-26 07:15] LABS: CALCIUM 8.5 MG/DL (8.5-10.1); CREATININE SERUM 0.9 MG/DL (0.60-1.30); MAGNESIUM 1.3 MG/DL (1.6-2.4); POTASSIUM 4.5 MMOL/L (3.6-5.0)
[2023-02-26] MEDS: POTASSIUM CL 10MEQ/50ML IVPB 50 ML IV SCH (07:20)
[2023-02-26] MEDS: MAGNESIUM 1 GM/100 ML IVPB 100 ML IV SCH ×7 (07:21→14:39)
[2023-02-26 07:25] VITALS: BP 120/75
[2023-02-26] MEDS: POTASSIUM BICARB 20 MEQ effervescent TABLET PO SCH (07:28)
[2023-02-26] MEDS: POTASSIUM CHLORIDE 20 MEQ TABLET PO SCH (07:28)
--- NOTE | 2023-02-26 07:38 | Progress Note - Surgery ---
AVELINA FLORES 02/26/23 0738: Subjective Date Seen by a Provider: Feb 26, 2023 Time Seen by a Provider: 07:33 Subjective/Events-last exam Pt reports no change to the R lower extremity erythema- she thinks it may be slightly better than yesterday. No further movement up the R hip. She states that the area is itchy and has barrier cream around the wound which has helped. Notes that the R lower extremity is not very painful and only occasionally feels shooting around the ankle. Notes swelling around the R foot. Review of Systems General: No Chills, No Night Sweats HEENT: No Head Aches, No Visual Changes Pulmonary: No Dyspnea, No Cough Cardiovascular: No: Chest Pain, Palpitations Gastrointestinal: No: Nausea, Vomiting, Abdominal Pain Genitourinary: No Dysuria, No Frequency Musculoskeletal: leg pain (occasional mild shooting pain); No: neck pain Neurological: No: Change in speech, Confusion Focused Exam Sepsis Stage: Ruled Out Lactate Level 02/25/23 11:40: Lactic Acid Level 1.75 Respiratory: No Accessory Muscle Use, No Respiratory Distress Cardiovascular: Regular Rate, Rhythm, Normal Peripheral Pulses Peripheral Pulses: 2+ Dorsalis Pedis (R), 2+ Left Dors-Pedis (L) Skin: warm/dry, rash (R lower extremity with erythema extending up the lateral leg. Multiple peeling white scaling plaques around the R ankle) Objective Exam Vital Signs Date Time Temp Pulse Resp B/P (MAP) Pulse Ox O2 Delivery O2 Flow Rate FiO2 02/26/23 04:35 37.1 81 18 105/65 (78) 94 Room Air 02/25/23 23:09 37.1 93 18 122/80 (94) 94 Room Air 02/25/23 21:20 Room Air 02/25/23 20:16 37.3 88 18 157/80 (105) 97 Room Air 02/25/23 15:18 36.6 77 18 132/80 (97) 95 Room Air 02/25/23 15:00 OxyMask 02/25/23 13:44 80 18 162/87 97 Room Air 02/25/23 11:10 78 18 166/67 (100) 97 Room Air I & O 02/26/23 06:59 Intake Total 2300 ml Balance 2300 ml Capillary Refill : Less Than 3 Seconds General Appearance: No Apparent Distress, WD/WN HEENT: PERRL/EOMI, TMs Normal Neck: Normal Inspection, Supple Respiratory: No Accessory Muscle Use, No Respiratory Distress Cardiovascular: Regular Rate, Rhythm, Normal Peripheral Pulses Peripheral Pulses: 2+ Radial Pulses (R), 2+ Radial Pulses (L) Gastrointestinal: non tender, soft Extremity: Inflammation, Pedal Edema (R foot edema) Neurologic/Psychiatric: Alert, Oriented x3 Skin: Warm/Dry, Erythema (R lower extremity with erythema extending up the lateral leg. Multiple peeling white scaling plaques around the R ankle), Rash Lymphatic: No Adenopathy Results Lab Laboratory Tests 02/25/23 11:40: White Blood Count 9.8, Red Blood Count 3.96, Hemoglobin 10.3L, Hematocrit 32L, M [place] Corpuscular Volume 81, Mean Corpuscular Hemoglobin 26, Mean Corpuscular Hemoglobin Concent 32, Red Cell Distribution Width 14.1, Platelet Count 362, Mean Platelet Volume 8.7L, Immature Granulocyte % (Auto) 0, Neutrophils (%) (Auto) 64, Lymphocytes (%) (Auto) 17, Monocytes (%) (Auto) 12, Eosinophils (%) (Auto) 6, Basophils (%) (Auto) 1, Neutrophils # (Auto) 6.2, Lymphocytes # (Auto) 1.6, Monocytes # (Auto) 1.2H, Eosinophils # (Auto) 0.6H, Basophils # (Auto) 0.1, Immature Granulocyte # (Auto) 0.0, Prothrombin Time 13.0, INR Comment 1.0, Activated Partial Thromboplast Time 31, Sodium Level 122*L, Potassium Level 4.6, Chloride Level 88L, Carbon Dioxide Level 21, Anion Gap 13, Blood Urea Nitrogen 15, Creatinine 0.80, Estimat Glomerular Filtration Rate 82, BUN/Creatinine Ratio 19, Glucose Level 155H, Lactic Acid Level 1.75, Calcium Level 9.7, Corrected Calcium 9.6, Total Bilirubin 0.4, Aspartate Amino Transf (AST/SGOT) 19, Alanine Aminotransferase (ALT/SGPT) 14, Alkaline Phosphatase 61, Total Protein 7.9, Albumin 4.1 02/25/23 12:39: Urine Color YELLOW, Urine Clarity CLEAR, Urine pH 6.5, Urine Specific [employer] 1.010L, Urine Protein NEGATIVE, Urine Glucose (UA) NEGATIVE, Urine Ketones NEGATIVE, Urine Nitrite NEGATIVE, Urine Bilirubin NEGATIVE, Urine Urobilinogen 0.2, Urine Leukocyte Esterase NEGATIVE, Urine RBC (Auto) NEGATIVE, Urine RBC NONE, Urine WBC NONE, Urine Squamous Epithelial Cells RARE, Urine Crystals NONE, Urine Leucine Crystals , Urine Bacteria NEGATIVE, Urine Casts NONE, Urine Mucus NEGATIVE, Urine Culture Indicated CULTURE PENDING 02/25/23 15:56: Glucometer 158H 02/25/23 17:11: Sodium Level 128L 02/25/23 19:47: Glucometer 197H 02/26/23 05:06: Glucometer 160H 02/26/23 06:05: White Blood Count 9.7, Red Blood Count 4.46, Hemoglobin 11.5, Hematocrit 36, Mean Corpuscular Volume 81, Mean Corpuscular Hemoglobin 26, Mean Corpuscular He moglobin Concent 32, Red Cell Distribution Width 14.6H, Platelet Count 198, Mean Platelet Volume 8.8L, Immature Granulocyte % (Auto) 1, Neutrophils (%) (Auto) 83H, Lymphocytes (%) (Auto) 7L, Monocytes (%) (Auto) 4, Eosinophils (%) (Auto) 6, Basophils (%) (Auto) 0, Neutrophils # (Auto) 8.0H, Lymphocytes # (Auto) 0.7L, Monocytes # (Auto) 0.4, Eosinophils # (Auto) 0.6H, Basophils # (Auto) 0.0, Immature Granulocyte # (Auto) 0.1, Sodium Level 125*L, Potassium Level 4.5, Chloride Level 95L, Carbon Dioxide Level 17L, Anion Gap 13, Blood Urea Nitrogen 17, Creatinine 0.90, Estimat Glomerular Filtration Rate 71, BUN/Creatinine Ratio 19, Glucose Level 173H, Calcium Level 8.5, Magnesium Level 1.3L, Smear Scan YES Assessment/Plan Assessment/Plan Assessment/Plan R Lower extremity Cellulitis failed outpatient management Anemia Hyponatremia Hypomagnesemia Continue vancomycin and cefepime and monitor. CT scan 02/25/23 shows no fluid collection but there is increasing subcutaneous st randing and skin thickening in keeping with cellulitis. No evidence suggesting osteomyelitis. Hgb is 11.5 today up from 10.3 yesterday. Monitor Na was 125 today down from 128 yesterday. Monitor. Mg is 1.3 today. Mg replacement protocol. MICHELE CUELLAR DO 02/26/23 1618: Subjective Subjective/Events-last exam Left feeling better than yesterday. Less erythema. Still with itch to leg she states. No new complaints. Denies n/v fever sweats chills shortness of breath or chest pain. Objective Exam General Appearance: No Apparent Distress, WD/WN HEENT: PERRL/EOMI, Normal ENT Inspection Neck: Full Range of Motion, Non Tender Respiratory: Chest Non Tender, No Accessory Muscle Use, No Respiratory Distress Cardiovascular: Regular Rate, Rhythm, No JVD Gastrointestinal: non tender, soft Extremity: Inflammation (right lower ext , ), Pedal Edema (R foot edema) Skin: Erythema (R lower extremity with erythema extending up the lateral leg. Multiple peeling white scaling plaques around the R ankle), Rash Assessment/Plan Assessment/Plan Assessment/Plan R Lower extremity Cellulitis failed outpatient management Anemia Hyponatremia Hypomagnesemia Continue vancomycin and cefepime and monitor. CT scan 02/25/23 shows no fluid collection but there is increasing subcutaneous stranding and skin thickening in keeping with cellulitis. No evidence suggesting osteomyelitis. Hgb is 11.5 today up from 10.3 yesterday. Monitor Na was 125 today down from 128 yesterday. Monitor. Mg is 1.3 today. Mg replacement protocol. Supervisory-Addendum Brief Verification & Attestation Participated in pt care: history, MDM, physical Personally performed: exam, history, MDM, supervision of care Care discussed with: Medical Student Procedures: n/a Results interpretation: Verified all documentation Verification and Attestation of Medical Student E/M Service A medical student performed and documented this service in my presence. I reviewed and verified all information documented by the medical student and made modifications to such information, when appropriate. I personally performed the physical exam and medical decision making. Michele Cuellar, Feb 26, 2023,16:16 AVELNIA FLORES Feb 26, 2023 07:38 MICHELE CUELLAR DO Feb 26, 2023 16:18
[2023-02-26] MEDS: LOSARTAN 100 MG TABLET PO SCH (08:18)
[2023-02-26] MEDS: SPIRONOLACTONE 25 MG TABLET PO SCH (08:18)
[2023-02-26] MEDS: DOCUSATE SODIUM 100 MG CAPSULE PO SCH ×2 (08:18→20:22)
[2023-02-26] MEDS: amLODIPine 10 MG TABLET PO SCH (08:18)
[2023-02-26] MEDS: SENNOSIDES 8.6 MG TABLET PO SCH ×2 (08:18→20:22)
--- NOTE | 2023-02-26 10:42 | History & Physical-Hospitalist ---
History of Present Illness HPI/Chief Complaint Pt is a 62 year old female with PMH HTN, T2DM, HLD, obesity, who presented with worsenign lower extremity swelling and erythema. She was admitted here last month with cellulitis and has been on antibiotics for roughly the entire month. She was on clindamycin and Levaquin at home and was doing better until a couple of days ago. She has been seeing her PCP weekly since discharge. She noticed the erythema spread up her thigh so decided to come back in for evaluation. She was admitted for IV abx. She reports her leg looks much better than when she came in yesterday. Source: patient Date Seen 02/26/23 Time Seen by a Provider: 10:00 Attending Physician Jonnie Madison MD PCP Admitting Physician: Tamara Alamo MD Attending Physician: Tamara Alamo MD Referring Physician Date of Admission Feb 25, 2023 at 13:38 Home Medications & Allergies Home Medications Reviewed patient Home Medication Reconciliation performed by pharmacy medication reconciliations color laboratory technician and/or nursing. Patients Allergies have been reviewed. Allergies Allergies Coded Allergies Sulfa (Sulfonamide Antibiotics) (Verified Allergy, Unknown, 02/03/23) diphenhydramine (Verified Allergy, Unknown, 02/03/23) Past Ljembzd-Jkvovj-Jcorcu Hx Patient Social History Tobacco Use?: No Smoking Status: Former Smoker Substance use?: No Alcohol Use?: No Pt feels they are or have been: No Seasonal Allergies Seasonal Allergies: No Current Status Advance Directives: No Communicates: Verbally Primary Language: [place] Preferred Spoken Language: [place] Is interpretation needed?: No Past Medical History Surgeries: Breast, Gallbladder COPD High Cholesterol, Hypertension Neuropathy Gall Bladder Disease Diabetes, Non-Insulin dep Cataract Loss of Vision: Bilateral Hearing Impairment: Denies Recent Skin Changes Blood Disorders: No Family Medical History Cardiovascular disease 19 FATHER, Onset:30's - 40 19 MOTHER, Onset:60 years & older (H/o CA. No bypass surgeries.) FH: COPD (chronic obstructive pulmonary disease) 19 FATHER, Onset:60 years & older 19 MOTHER, Onset:60 years & older FH: hepatitis G8 BROTHER, , Age:40's - 50, Onset:Unknown FH: prostate cancer 19 FATHER, Onset:30's - 40 G8 BROTHER, Onset:40's - 50 FH: sleep apnea G8 BROTHER, Onset:Unknown FH: uterine cancer 19 MOTHER, Onset:40's - 50 G8 SISTER, Onset:40's - 50 Fibromyalgia G8 BROTHER, Onset:Unknown G8 BROTHER, , Age:40's - 50, Onset:Unknown G8 SISTER, Onset:Unknown Hypertension 19 FATHER, Onset:60 years & older 19 MOTHER, Onset:60 years & older Kidney disease G8 SISTER, Onset:Unknown Osteoporosis 19 MOTHER, Onset:60 years & older No Pertinent Family Hx SOCIAL HISTORY: -SMOKED 1 PPD, QUIT AGE 38 -DENIES ALCOHOL USE -DENIES DRUG USE Review of Systems Constitutional: see HPI Physical Exam Physical Exam Vital Signs Vital Signs - First Documented 02/25/23 02/25/23 11:10 15:18 Temp 36.6 Pulse 78 Resp 18 B/P (MAP) 166/67 (100) Pulse Ox 97 O2 Delivery Room Air Capillary Refill : Less Than 3 Seconds Height, Weight, BMI Height: 5'2.00" Weight: 175lbs. 0.0oz. [id number]; 35.93 BMI Method: General Appearance: No Apparent Distress, Chronically ill, Obese Respiratory: Lungs Clear, No Respiratory Distress Cardiovascular: Regular Rate, Rhythm, No Murmur Gastrointestinal: Normal Bowel Sounds, Soft Extremity: Other (erythema noted from right foot up leg and tapering off at knee- within demarcation. Scaling of skin noted with crusting noted on medial aspect of lower leg) Neurologic/Psychiatric: Alert, Oriented x3, Normal Mood/Affect Results Results/Procedures Labs Laboratory Tests 02/25/23 11:40 02/25/23 17:11 02/26/23 06:05 02/27/23 05:46 Patient resulted labs reviewed. Imaging: Reviewed Imaging Report [facility] [place] NAME: RADHA CHAVEZ [facility] REC#: [id number] PT STATUS: REG ER : 1960 PHYSICIAN: SHELLIE BROWN ADMIT DATE: 02/25/23/ER Signed Date of Exam:02/25/23 CT EXTREMITY LOWER RIGHT W PROCEDURE: CT right lower extremity with contrast. TECHNIQUE: Multiple contiguous axial CT images of the right extremity were obtained after intravenous administration of iodinated contrast. Auto Exposure Controls were utilized during the CT exam to meet ALARA standards for radiation dose reduction. INDICATION: Cellulitis COMPARISON: 02/05/2023 FINDINGS: There is subcutaneous stranding throughout the right lower extremity. No drainable fluid collection. The soft tissue stranding has increased. There is skin thickening. No soft tissue gas. There is a knee joint effusion. There is no fracture. IMPRESSION: 1. Increasing subcutaneous stranding and skin thickening in keeping with cellulitis. No drainable fluid collection or erosions to indicate osteomyelitis. Dictated by: Dictated on workstation # [id number] Dict: 02/25/23 1317 Trans: 02/25/23 1324 [facility] [id number] Interpreted by: JONNIE THOMPSON MD Electronically signed by: JONNIE THOMPSON MD 02/25/23 1324 Assessment/Plan Admission Diagnosis Recurrent Cellulitis Admission Status: Inpatient Order (span 2 midnights) Reason for Inpatient Admission: failed outpaient abx Assessment and Plan Recurrent cellulitis Shantel infection Vanc and Cefepime Diflucan CT without fluid collection Surgery consulted, appreciate recs Wound care consulted Hyponatremia Chronically is ~131 125 today Add fluid restriction asymptomatic T2DM Sliding scale insulin BS well controlled HTN HLD Obesity Continue home meds as appropriate DVT prophylaxis: Lovedariusx BRIDGETTE ORR MD Feb 26, 2023 10:42
[2023-02-26 11:30] VITALS: BP 121/61
[2023-02-26] MEDS: VANCOMYCIN 1250 MG/NS 250 ML PREMIX IV SCH ×2 (11:47→22:15)
[2023-02-26] MEDS: LACTOBACILLUS ACIDOPHILUS (PROBIOTIC) CAPSULE PO SCH ×2 (11:57→17:24)
[2023-02-26] MEDS: ENOXAPARIN 40 MG/0.4 ML SYRINGE SC SCH (15:24)
[2023-02-26 16:00] VITALS: BP 119/68
[2023-02-26 19:18] VITALS: BP 144/61
[2023-02-26] MEDS: CELECOXIB 400 MG CAPSULE PO SCH (20:22)
[2023-02-26] MEDS: MELATONIN 3 MG TABLET PO PRN (20:24)
[2023-02-26] MEDS: CALCIUM CARBONATE 500 MG CHEW TABLET PO PRN (20:24)
[2023-02-26] MEDS: ANTACID SUSPENSION 30 ML UDC PO PRN (23:59)
[2023-02-27] VITALS (7 sets, daily range): BP systolic 111–167; BP diastolic 56–70
[2023-02-27] MEDS: CEFEPIME INJECTION 1,000 MG in NS (IVPB) 50 ML 50 ML IV SCH (05:01)
[2023-02-27] MEDS: CALCIUM CARBONATE 500 MG CHEW TABLET PO PRN (05:01)
[2023-02-27] MEDS: inSUlin ASPART 1 UNIT/0.01 ML (PER UNIT) SC SCH ×4 (05:05→20:31)
[2023-02-27] MEDS: POTASSIUM BICARB 20 MEQ effervescent TABLET PO SCH (06:18)
[2023-02-27 06:24] LABS: BASOPHILS % (AUTO) 0 % (0-10); EOSINOPHILS # (AUTO) 1.3 10^3/uL (0.0-0.3); EOSINOPHILS % (AUTO) 12 % (0-10); HEMATOCRIT 31 % (35-52); HEMOGLOBIN 10.2 g/dL (11.5-16.0); LYMPHOCYTES # (AUTO) 0.8 10^3/uL (1.0-4.0); LYMPHOCYTES % (AUTO) 8 % (12-44); MEAN CORPUSCULAR HEMOGLOBIN 26 pg (25-34); MEAN CORPUSCULAR HGB CONC 33 g/dL (32-36); MEAN CORPUSCULAR VOLUME 79 fL (80-99); MEAN PLATELET VOLUME 8.8 fL (9.0-12.2); MONOCYTES # (AUTO) 0.6 10^3/uL (0.0-1.0); MONOCYTES % (AUTO) 5 % (0-12); NEUTROPHILS % (AUTO) 74 % (42-75); PLATELET COUNT 282 10^3/uL (130-400); WHITE BLOOD COUNT 10.7 10^3/uL (4.3-11.0)
[2023-02-27 06:37] LABS: CALCIUM 9.1 MG/DL (8.5-10.1); CREATININE SERUM 0.75 MG/DL (0.60-1.30); MAGNESIUM 1.8 MG/DL (1.6-2.4); POTASSIUM 4.4 MMOL/L (3.6-5.0)
[2023-02-27] MEDS: POTASSIUM CHLORIDE 20 MEQ TABLET PO SCH (06:40)
[2023-02-27] MEDS: POTASSIUM CL 10MEQ/50ML IVPB 50 ML IV SCH (06:40)
[2023-02-27] MEDS: MAGNESIUM 1 GM/100 ML IVPB 100 ML IV SCH ×3 (06:41→06:51)
--- NOTE | 2023-02-27 07:34 | Progress Note - Surgery ---
AVELINA FLORES 02/27/23 0734: Subjective Date Seen by a Provider: Feb 27, 2023 Time Seen by a Provider: 07:31 Subjective/Events-last exam Pt states that she vomited once early this morning and complained of chills although she has not spiked a fever. She reports that she usually always feels cold. States that she feels some indigestion but denies abd tenderness. 1 bowel movement last night. She states that her R leg is still itchy. She states that she thinks her R leg appears better. Review of Systems General: No Night Sweats, No Malaise HEENT: No Visual Changes, No Eye Pain Pulmonary: No Dyspnea, No Cough Cardiovascular: No: Chest Pain, Palpitations Gastrointestinal: Vomiting; No: Abdominal Pain, Diarrhea Genitourinary: No Dysuria, No Frequency Musculoskeletal: No: neck pain, shoulder pain Neurological: No: Change in speech, Confusion Focused Exam Sepsis Stage: Ruled Out Lactate Level 02/25/23 11:40: Lactic Acid Level 1.75 Respiratory: No Accessory Muscle Use, No Respiratory Distress Cardiovascular: Regular Rate, Rhythm, Normal Peripheral Pulses Peripheral Pulses: 2+ Dorsalis Pedis (R), 2+ Left Dors-Pedis (L), 2+ Radial Pul ses (R), 2+ Radial Pulses (L) Skin: warm/dry, rash Objective Exam Vital Signs Date Time Temp Pulse Resp B/P (MAP) Pulse Ox O2 Delivery O2 Flow Rate FiO2 02/27/23 03:49 36.4 92 18 147/62 (90) 97 Room Air 02/27/23 00:36 36.8 88 18 111/70 (84) 97 Room Air 02/26/23 20:20 Room Air 02/26/23 19:18 37.1 98 18 144/61 (88) 99 Room Air 02/26/23 16:00 36.9 80 18 119/68 (85) 96 Room Air 02/26/23 11:30 36.7 92 18 121/61 (81) 96 Room Air 02/26/23 08:50 Room Air I & O 02/27/23 07:00 Intake Total 2440 ml Output Total 450 ml Balance 1990 ml Capillary Refill : Less Than 3 Seconds General Appearance: No Apparent Distress, WD/WN HEENT: PERRL/EOMI, Normal ENT Inspection Neck: Full Range of Motion, Non Tender Respiratory: Chest Non Tender, No Accessory Muscle Use, No Respiratory Distress Cardiovascular: Regular Rate, Rhythm, No JVD Peripheral Pulses: 2+ Dorsalis Pedis (R), 2+ Left Dors-Pedis (L), 2+ Radial Pulses (R), 2+ Radial Pulses (L) Gastrointestinal: non tender, soft Extremity: Inflammation (right lower ext , ), Pedal Edema (R foot edema) Neurologic/Psychiatric: Alert, Oriented x3, Normal Mood/Affect Skin: Erythema (R lower extremity with erythema extending up the lateral leg. Multiple peeling white scaling plaques around the R ankle. Improving), Rash Lymphatic: No Adenopathy Results Lab Laboratory Tests 02/26/23 10:44: Glucometer 223H 02/26/23 15:57: Glucometer 188H 02/26/23 21:29: Glucometer 168H 02/27/23 04:58: Glucometer 153H 02/27/23 05:46: White Blood Count 10.7, Red Blood Count 3.92, Hemoglobin 10.2L, Hematocrit 31L, Mean Corpuscular Volume 79L, Mean Corpuscular Hemoglobin 26, Mean Corpuscular Hemoglobin Concent 33, Red Cell Distribution Width 14.6H, Platelet Count 282, Mean Platelet Volume 8.8L, Immature Granulocyte % (Auto) 1, Neutrophils (%) (Auto) 74, Lymphocytes (%) (Auto) 8L, Monocytes (%) (Auto) 5, Eosinophils (%) (Auto) 12H, Basophils (%) (Auto) 0, Neutrophils # (Auto) 8.0H, Lymphocytes # (Auto) 0.8L, Monocytes # (Auto) 0.6, Eosinophils # (Auto) 1.3H, Basophils # (Auto) 0.0, Immature Granulocyte # (Auto) 0.1, Sodium Level 124*L, Potassium Level 4.4, Chloride Level 94L, Carbon Dioxide Level 21, Anion Gap 9, Blood Urea Nitrogen 17, Creatinine 0.75, Estimat Glomerular Filtration Rate 89, BUN/Creatinine Ratio 23, Glucose Level 176H, Calcium Level 9.1, Magnesium Level 1.8 Microbiology 02/25/23 Urine Culture - Final, Complete NO GROWTH 02/25/23 Blood Culture - Preliminary, Resulted No growth Assessment/Plan Assessment/Plan Assessment/Plan R Lower extremity Cellulitis failed outpatient management Anemia Hyponatremia Continue vancomycin and cefepime and monitor. CT scan 02/25/23 shows no fluid collection but there is increasing subcutaneous stranding and skin thickening in keeping with cellulitis. No evidence suggesting osteomyelitis. Hgb is 10.2 down from 11.5 yesterday. Monitor Na was 124 today down from 125 yesterday. Monitor. MICHELE CUELLAR DO 02/27/23 1636: Subjective Subjective/Events-last exam Right leg feeling better. Still slightly itchy. No pain. Redness improving. Denies other complaints. Denies n/v fever sweats chills shortness of breath or chest pain. Objective Exam General Appearance: No Apparent Distress, WD/WN HEENT: PERRL/EOMI, Normal ENT Inspection Neck: Full Range of Motion, Non Tender Respiratory: Chest Non Tender, No Accessory Muscle Use, No Respiratory Distress Cardiovascular: Regular Rate, Rhythm, No JVD Gastrointestinal: non tender, soft Extremity: Inflammation (right lower ext , ), Pedal Edema (R foot edema) Neurologic/Psychiatric: Alert, Oriented x3, Normal Mood/Affect Skin: Erythema (R lower extremity with erythema extending up the lateral leg. Multiple peeling white scaling plaques around the R ankle. Improving), Rash Lymphatic: No Adenopathy Assessment/Plan Assessment/Plan Assessment/Plan R Lower extremity Cellulitis failed outpatient management Anemia Hyponatremia Continue vancomycin and cefepime and monitor. CT scan 02/25/23 shows no fluid collection but there is increasing subcutaneous stranding and skin thickening in keeping with cellulitis. No evidence suggesting osteomyelitis. Hgb is 10.2 down from 11.5 yesterday. Monitor Na was 124 today down from 125 yesterday. Monitor. Supervisory-Addendum Brief Verification & Attestation Participated in pt care: history, MDM, physical Personally performed: exam, history, MDM, supervision of care Care discussed with: Medical Student Procedures: n/a Results interpretation: Verified all documentation Verification and Attestation of Medical Student E/M Service A medical student performed and documented this service in my presence. I revie wed and verified all information documented by the medical student and made modifications to such information, when appropriate. I personally performed the physical exam and medical decision making. Michele Cuellar, Feb 27, 2023,16:36 AVELINA FLORES Feb 27, 2023 07:34 MICHELE CUELLAR DO Feb 27, 2023 16:36
[2023-02-27] MEDS: LACTOBACILLUS ACIDOPHILUS (PROBIOTIC) CAPSULE PO SCH ×3 (08:37→17:24)
[2023-02-27] MEDS: SPIRONOLACTONE 25 MG TABLET PO SCH (08:37)
[2023-02-27] MEDS: amLODIPine 10 MG TABLET PO SCH (08:37)
[2023-02-27] MEDS: SENNOSIDES 8.6 MG TABLET PO SCH ×2 (08:37→19:25)
[2023-02-27] MEDS: DOCUSATE SODIUM 100 MG CAPSULE PO SCH ×2 (08:37→19:25)
[2023-02-27] MEDS: LOSARTAN 100 MG TABLET PO SCH (08:37)
[2023-02-27] MEDS ORDERED: TROUGH ORDER-PHARMACY XX NR (10:00)
[2023-02-27] MEDS ORDERED: PANTOPRAZOLE 20 MG TABLET PO NR (10:30)
--- NOTE | 2023-02-27 10:33 | Progress Note - Hospitalist ---
Subjective HPI/CC On Admission Date Seen by Provider: Feb 27, 2023 Pt is a 62 year old female with PMH HTN, T2DM, HLD, obesity, who presented with worsenign lower extremity swelling and erythema. She was admitted here last month with cellulitis and has been on antibiotics for roughly the entire month. She was on clindamycin and Levaquin at home and was doing better until a couple of days ago. She has been seeing her PCP weekly since discharge. She noticed the erythema spread up her thigh so decided to come back in for evaluation. She was admitted for IV abx. She reports her leg looks much better than when she came in yesterday. Subjective/Events-last exam Pt reports doing better today. Leg less red and warm today. Only complaint is heartburn. Focused Exam Lactate Level 02/25/23 11:40: Lactic Acid Level 1.75 Objective Exam Vital Signs Vital Signs Date Time Temp Pulse Resp B/P (MAP) Pulse Ox O2 Delivery O2 Flow Rate FiO2 02/27/23 08:40 Room Air 02/27/23 08:23 36.5 88 20 167/70 (102) 95 Capillary Refill : Less Than 3 Seconds General Appearance: No Apparent Distress, Obese Respiratory: Lungs Clear Cardiovascular: Regular Rate, Rhythm, No Murmur Neurologic/Psychiatric: Alert, Oriented x3 Results/Procedures Lab Laboratory Tests 02/27/23 05:46 Patient resulted labs reviewed. Imaging: Reviewed Imaging Report Assessment/Plan Assessment and Plan Assess & Plan/Chief Complaint Recurrent cellulitis Shantel infection Vanc and DC Cefepime Diflucan CT without fluid collection Surgery consulted, appreciate recs Wound care consulted Hyponatremia Chronically is ~131 124 today Continue fluid restriction and add salt tabs asymptomatic T2DM Sliding scale insulin BS well controlled HTN HLD Obesity Continue home meds as appropriate DVT prophylaxis: BRIDGETTE Hall MD Feb 27, 2023 10:33
[2023-02-27] MEDS ORDERED: HYPOCHLOROUS ACID/NaCl WOUND SOLN 250 ML IR PRN (10:45)
[2023-02-27] MEDS: SODIUM CHLORIDE 1 GM TABLET PO SCH ×2 (10:46→19:40)
--- NOTE | 2023-02-27 11:23 | Wound Care Assessment ---
Wound Care Assessment Date Seen by Provider: Feb 27, 2023 Time Seen by Provider: 11:15 Chief Complaint R. ankle wounds HPI This pleasant 62 year old female was admitted to the hospital with cellulitis in mid-January. She was subsequently d/c'd home on levaquin and clindamycin and had an allergic reaction (hives). She returned to the hospital after worsening cellulitic changes and is currently on Vancomycin and cefepime. Her erythema is greatly improved (per patient). She has noted flaking and crusting to ankle. When crusts are removed, she does still have some shallow, open weeping wounds. Most are partial thickness but there are some full thickness ulcers. She does have associated edema to this extremity which may be delaying her wound healing as well. She does have chronic anemia and diabetes too. Her FSBS at home are persistently <150. She does also have hyponatremia. Plan for dressings below. I would like to follow as an outpatient if her wound is not fully epithelialized upon d/c home. Past Medical History: Admits Diabetes Type II COPD, lymphedema Smoking Status: Former Smoker Recreational Drug Use: No Alcohol Use: Denies Use Exam Vital Signs Date Time Temp Pulse Resp B/P (MAP) Pulse Ox O2 Delivery O2 Flow Rate FiO2 02/27/23 08:40 Room Air 02/27/23 08:23 36.5 88 20 167/70 (102) 95 Capillary Refill : Less Than 3 Seconds General Appearance: no apparent distress, obese HEENT: other (normal hearing) Neck: full range of motion Respiratory: no respiratory distress, no accessory muscle use Extremities: normal range of motion, pedal edema Neurologic/Psychiatric: alert, normal mood/affect, oriented x 3 Skin: rash Skin Problem Location: lower extremities Skin Character: drainage, erythema, rash, scales, swelling Wound assessment: 1. R. LE /ankle ulcer: 11.2x10.4x0.1 cm. The epithelialization is medium. There is no tunneling or undermining. Drainage is large and serosanguinous. Granulation is small and pink. Necrotic is medium and slough, margins are flat. There is scaling and erythema in the periwound consistent with improving cellulitis Results Laboratory Tests 02/26/23 15:57: Glucometer 188H 02/26/23 21:29: Glucometer 168H 02/27/23 04:58: Glucometer 153H 02/27/23 05:46: White Blood Count 10.7, Red Blood Count 3.92, Hemoglobin 10.2L, Hematocrit 31L, Mean Corpuscular Volume 79L, Mean Corpuscular Hemoglobin 26, Mean Corpuscular Hemoglobin Concent 33, Red Cell Distribution Width 14.6H, Platelet Count 282, Mean Platelet Volume 8.8L, Immature Granulocyte % (Auto) 1, Neutrophils (%) (Auto) 74, Lymphocytes (%) (Auto) 8L, Monocytes (%) (Auto) 5, Eosinophils (%) (Auto) 12H, Basophils (%) (Auto) 0, Neutrophils # (Auto) 8.0H, Lymphocytes # (Auto) 0.8L, Monocytes # (Auto) 0.6, Eosinophils # (Auto) 1.3H, Basophils # (Auto) 0.0, Immature Granulocyte # (Auto) 0.1, Sodium Level 124*L, Potassium Level 4.4, Chloride Level 94L, Carbon Dioxide Level 21, Anion Gap 9, Blood Urea Nitrogen 17, Creatinine 0.75, Estimat Glomerular Filtration Rate 89, BUN/Creatinine Ratio 23, Glucose Level 176H, Calcium Level 9.1, Magnesium Level 1.8 02/27/23 10:09: Vancomycin Level Trough 20.7H 02/27/23 11:06: Glucometer 146H Microbiology 02/25/23 Urine Culture - Final, Complete NO GROWTH 02/25/23 Blood Culture - Preliminary, Resulted No growth Microbiology 02/25/23 Urine Culture - Final, Complete NO GROWTH 02/25/23 Blood Culture - Preliminary, Resulted No growth 02/25/23 Blood Culture - Preliminary, Resulted No growth Assessment/Plan/Dx Assessment: 1. Full thickness ulcer R. ankle/LE 2. Cellulitis 3. DM2 with ulcer 4. Chronic anemia 5. Obesity related lymphedema Plan: 1. Cleanse daily with Vashe. Apply thick layer barrier ointment to periwound. Silver alginate hydrofiber to any open wound. Secure with ABD/gauze/roller gauze and tape. Change daily 2. Antibiotics per primary (appropriate) 3. Good glycemic control currently 4. Defer to PCP 5. Weight loss advisable. CHER CARPENTER MD Feb 27, 2023 11:23
[2023-02-27] MEDS ORDERED: ZINC50TA51 PO (13:42)
[2023-02-27] MEDS ORDERED: MTP100TCR PO (13:42)
[2023-02-27] MEDS ORDERED: OMEP40CA6 PO (13:42)
[2023-02-27] MEDS ORDERED: AMLO-251 PO (13:42)
[2023-02-27] MEDS ORDERED: ASCO-262 PO (13:42)
[2023-02-27] MEDS ORDERED: CHOL-34 PO (13:42)
[2023-02-27] MEDS ORDERED: SPIR25TA PO (13:42)
[2023-02-27] MEDS ORDERED: MAGN250T35 PO (13:42)
--- NOTE | 2023-02-27 13:45 | Physical Therapy Evaluation ---
PT Evaluation-General Medical Diagnosis Admission Date Feb 25, 2023 at 13:38 Medical Diagnosis: cellulitis right LE/hyponatremia Onset Date: Feb 25, 2023 Therapy Diagnosis Therapy Diagnosis: debility Height/Weight Height (Feet): 5 Height (Inches): 2.00 Weight (Pounds): 175 Weight (Ounces): 0.0 Precautions Precautions/Isolations: Fall Prevention, Standard Precautions Referral Physician: Ke Reason for Referral: Evaluation/Treatment Medical History Pertinent Medical History: COPD, DM, HTN, Neuropathy Current History ER secondary to cellulitis right LE Reviewed History: Yes Social History Home: Single Level Current Living Status: Spouse PT Steps Into Home: 1 Prior Prior Level of Function SCALE: Activities may be completed with or without assistive devices. 8-Ehahoeyvgu-idtgscl completes the activity by him/herself with no assistance from a helper. 5-Set-up or Clean-up Assistance-helper sets up or cleans up; patient completes activity. [place] assists only prior to or following the activity. 4-Supervision or Touching Assistance-helper provides verbal cues and/or touching/steadying and/or contact guard assistance as patient completes activity. Assistance may be provided throughout the activity or intermittently. 3-Partial/Moderate Assistance-helper does LESS THAN HALF the effort. [place] lifts, holds or supports trunk or limbs, but provides less than half the effort. 2-Substantial/Maximal Assistance-helper does MORE THAN HALF the effort. [place] lifts or holds trunk or limbs and provides more than half the effort. 3-Pmcokdidw-yrzvsb does ALL the effort. Patient does none of the effort to complete the activity. Or, the assistance of 2 or more helpers is required for the patient to complete the activity. If activity was not attempted, code reason: 7-Patient Refused. 9-Not Applicable-not attempted and the patient did not perform the activity before the current illness, exacerbation or injury. 10-Not Attempted due to Environmental Limitations-(lack of equipment, weather restraints, etc.). 88-Not Attempted due to Medical Conditions or Safety Concerns. Bed Mobility: 6 Transfers (B,C,W/C): 6 Gait: 6 Indoor Mobility (Ambulation): Independent Prior Devices Use: Walker (PRN) PT Evaluation-Current Subjective Patient agrees to PT. Pain Numeric Pain Scale: 0-No Pain Location: No Pain Reported ROM/Strength ROM Lower Extremities bilateral LE WFL Strength Lower Extremities 4-/5 grossly bilateral LE all planes Integumentary/Posture Integumentary refer to nursing notes Bowel Incontinence: No Bladder Incontinence: No Posture kyphotic Neuromuscular (Tone, Coordination, Reflexes) grossly intact Sensory Vision: Functional Hearing: Functional Transfers Lying to Sitting/Side of Bed(Q: 4 Sit to Stand (QC): 4 Chair/Cuo-ye-Ouzcm Xfer(QC): 4 Gait Mode of Locomotion: Walk Anticipated Mode of Locomotion: Walk Walk 10 feet (QC): 4 Walk 50 ft with 2 Turns(QC): 4 Walk 150 ft (QC): 4 Distance: 350' Gait Assistive Device: FWW Comments/Gait Description extended UE's with FWW use/functional gait sequence Balance Sitting Static: Normal Sitting Dynamic: Normal Standing Static: Normal Standing Dynamic: Normal Assessment/Needs Patient will be seen short term by skilled PT to address functional mobility to ensure safe return to home at maximum LOF. Rehab Potential: Fair PT Vocal Performer Goals Assisted Goals PT Assisted Goals Time Frame: Mar 10, 2023 Roll Left & Right (QC): 6 Sit to Lying (QC): 6 Lying-Sitting on Side/Bed(QC): 6 Sit to Stand (QC): 6 Chair/Vfi-so-Lacbt Xfer(QC): 6 Toilet Transfer (QC): 6 Walk 10 feet (QC): 5 Walk 50ft with 2 Turns (QC): 5 Walk 150 ft (QC): 5 PT Plan Treatment/Plan Treatment Plan: Continue Plan of Care Treatment Plan: Education, Functional Activity Cj, Functional Strength, Gait, Safety, Therapeutic Exercise, Transfers Treatment Duration: Mar 10, 2023 Frequency: 5 times per week Estimated Hrs Per Day: .25 hour per day Time Time In: 1300 Time Out: 1311 DATE: Feb 27, 2023 Total Billed Treatment Time: 11 Total Billed Treatment 1 visit EVMod 11 min TALIB BUSH PT Feb 27, 2023 13:45
[2023-02-27] MEDS: ENOXAPARIN 40 MG/0.4 ML SYRINGE SC SCH (13:58)
[2023-02-27] MEDS: ANTACID SUSPENSION 30 ML UDC PO PRN (14:09)
--- NOTE | 2023-02-27 15:17 | Occupational Therapy Eval ---
OT Evaluation-General/PLF Medical Diagnosis Admission Date Feb 25, 2023 at 13:38 Medical Diagnosis: cellulitis right LE/hyponatremia Onset Date: Feb 25, 2023 Therapy Diagnosis Therapy Diagnosis: weakness Height/Weight Height (Feet): 5 Height (Inches): 2.00 Weight (Pounds): 175 Weight (Ounces): 0.0 Precautions Precautions/Isolations: Fall Prevention, Standard Precautions Weight Bear Status Weight Bearing Restriction: Full Weight Bearing Referral Physician: Ke Referral Reason: Evaluation/Treatment Medical History Pertinent Medical History: COPD, DM, HTN, Neuropathy Current History Most recent hospitalization Jan [id number] Reviewed History: Yes Social History Home: Single Level Current Living Status: Spouse Steps Into Home: 1 ADL-Prior Level of Function SCALE: Activities may be completed with or without assistive devices. 7-Olpbvnslfm-kybqpgu completes the activity by him/herself with no assistance from a helper. 5-Set-up or Clean-up Assistance-helper sets up or cleans up; patient completes activity. [place] assists only prior to or following the activity. 4-Supervision or Touching Assistance-helper provides verbal cues and/or touching/steadying and/or contact guard assistance as patient completes activity. Assistance may be provided throughout the activity or intermittently. 3-Partial/Moderate Assistance-helper does LESS THAN HALF the effort. [place] lifts, holds or supports trunk or limbs, but provides less than half the effort. 2-Substantial/Maximal Assistance-helper does MORE THAN HALF the effort. [place] lifts or holds trunk or limbs and provides more than half the effort. 5-Yriveuoqw-aiummg does ALL the effort. Patient does none of the effort to complete the activity. Or, the assistance of 2 or more helpers is required for the patient to complete the activity. If activity was not attempted, code reason: 7-Patient Refused. 9-Not Applicable-not attempted and the patient did not perform the activity before the current illness, exacerbation or injury. 10-Not Attempted due to Environmental Limitations-(lack of equipment, weather restraints, etc.). 88-Not Attempted due to Medical Conditions or Safety Concerns. Self Care: Independent Functional Cognition: Needed Some Help Drive Self: Yes OT Current Status Subjective Agreeable to OT Pain Numeric Pain Scale: 4 Location: Right Location Body Site: Calf Mental Status/Objective Patient Orientation: Person, Place, Time, Situation Current Upper Extremity ROM BUE WFL Upper Extremity Coordination INTACT Upper Extremity Sensation INTACT Upper Extremity Strength WFLs however does not sustain , low endurance level ADL-Treatment Eating (QC): 6 Oral Hygiene (QC): 5 (standing w/ FWW at sink) Shower/Bathe Self (QC): 7 Upper Body Dressing (QC): 5 Lower Body Dressing (QC): 5 On/Off Footwear (QC): 5 (slip on) Toileting Hygiene (QC): 5 Rock motion to transfer from low surfaces, use of GB to transfer off toilet Education OT Patient Education: Correct positioning, Exercise program, Modified ADL techniques, Progress toward Goal/Update tx plan, Purpose of tx/functional activities, Reviewed precautions, Rehab process, Safety issues, Transfer techniques, Use of adapted equipment Teaching Recipient: Patient Teaching Methods: Demonstration Response to Teaching: Verbalize Understanding, Reinforcement Needed OT Fci Goals Sailing Instructor Goals Eating (QC): 6 Oral Hygiene (QC): 6 Toileting Hygiene (QC): 6 Shower/Bathe Self (QC): 6 Upper Body Dressing (QC): 6 Lower Body Dressing (QC): 6 On/Off Footwear (QC): 6 1=Demonstrate adherence to instructed precautions during ADL tasks. 2=Patient will verbalize/demonstrate understanding of assistive devices/modifications for ADL. 3=Patient will improve strength/tolerance for activity to enable patient to perform ADL's. OT Education/Plan Problem List/Assessment Assessment: Decreased Activ Tolerance, Decreased UE Strength, Impaired I ADL's, Impaired Self-Care Skills Discharge Recommendations Plan/Recommendations: Continue POC Therapy Discharge Recommendati: Post Acute OT Treatment Plan/Plan of Care Treatment,Training & Education: Yes Patient would benefit from OT for education, treatment and training to promote independence in ADL's, mobility, safety and/or upper extremity function for ADL's. Plan of Care: ADL Retraining, Functional Mobility, Group Exercise/Act as Ind, UE Funct Exercise/Act Treatment Duration: Mar 03, 2023 Frequency: 3 times per week (3-5 times per week) Estimated Hrs Per Day: .25 hour per day Agreement: Yes Rehab Potential: Fair Time Start Time: 14:50 Stop Time: 15:02 DATE: Feb 27, 2023 Total Time Billed (hr/min): 17 Billed Treatment Time EVM 17 min ALY SANTAMARIA OT Feb 27, 2023 15:17
[2023-02-27] MEDS: glipiZIDE 5 MG TABLET PO SCH (17:24)
[2023-02-27] MEDS: CELECOXIB 400 MG CAPSULE PO SCH (19:39)
[2023-02-27] MEDS: MELATONIN 3 MG TABLET PO PRN (19:39)
[2023-02-27] MEDS: VANCOMYCIN 750 MG/NS 250 ML IVPB IV SCH ×2 (20:31)
[2023-02-28 04:19] VITALS: BP 146/72
[2023-02-28] MEDS: inSUlin ASPART 1 UNIT/0.01 ML (PER UNIT) SC SCH ×4 (05:28→21:50)
[2023-02-28 05:51] LABS: BASOPHILS % (AUTO) 1 % (0-10); EOSINOPHILS # (AUTO) 1.1 10^3/uL (0.0-0.3); EOSINOPHILS % (AUTO) 14 % (0-10); HEMATOCRIT 32 % (35-52); HEMOGLOBIN 10.2 g/dL (11.5-16.0); LYMPHOCYTES # (AUTO) 0.8 10^3/uL (1.0-4.0); LYMPHOCYTES % (AUTO) 10 % (12-44); MEAN CORPUSCULAR HEMOGLOBIN 26 pg (25-34); MEAN CORPUSCULAR HGB CONC 32 g/dL (32-36); MEAN CORPUSCULAR VOLUME 80 fL (80-99); MEAN PLATELET VOLUME 8.5 fL (9.0-12.2); MONOCYTES # (AUTO) 0.6 10^3/uL (0.0-1.0); MONOCYTES % (AUTO) 7 % (0-12); NEUTROPHILS # (AUTO) 5.5 10^3/uL (1.8-7.8); NEUTROPHILS % (AUTO) 68 % (42-75); PLATELET COUNT 327 10^3/uL (130-400); WHITE BLOOD COUNT 8.1 10^3/uL (4.3-11.0)
[2023-02-28] MEDS: PIOGLITAZONE 30MG TABLET PO SCH (06:10)
[2023-02-28] MEDS: POTASSIUM BICARB 20 MEQ effervescent TABLET PO SCH (06:12)
[2023-02-28 06:34] LABS: CALCIUM 9.3 MG/DL (8.5-10.1); CREATININE SERUM 0.74 MG/DL (0.60-1.30); MAGNESIUM 1.6 MG/DL (1.6-2.4); POTASSIUM 4.6 MMOL/L (3.6-5.0)
[2023-02-28] MEDS: POTASSIUM CL 10MEQ/50ML IVPB 50 ML IV SCH (06:41)
[2023-02-28] MEDS: POTASSIUM CHLORIDE 20 MEQ TABLET PO SCH (06:42)
[2023-02-28] MEDS: MAGNESIUM 1 GM/100 ML IVPB 100 ML IV SCH ×5 (06:42→10:53)
--- NOTE | 2023-02-28 07:09 | Progress Note - Surgery ---
AVELINA FLORES 02/28/23 0709: Subjective Date Seen by a Provider: Feb 28, 2023 Time Seen by a Provider: 07:01 Subjective/Events-last exam Pt reports that her R leg continues to look and feel better. Reports that she has continued swelling of the R lower extremity but attributes that to getting up and walking around. She notes that Dr. Patel from Wound care evaluated her yesterday and applied a dressing after removing some of the thicker scabbed areas around her R ankle. Review of Systems General: No Chills, No Night Sweats HEENT: No Head Aches, No Visual Changes Pulmonary: No Dyspnea, No Cough Cardiovascular: No: Chest Pain, Palpitations Gastrointestinal: No: Nausea, Vomiting Genitourinary: No Dysuria, No Frequency Musculoskeletal: No: neck pain, shoulder pain Neurological: No: Change in speech, Confusion Focused Exam Sepsis Stage: Ruled Out Lactate Level 02/25/23 11:40: Lactic Acid Level 1.75 Respiratory: No Accessory Muscle Use, No Respiratory Distress Cardiovascular: Regular Rate, Rhythm, Normal Peripheral Pulses Peripheral Pulses: 2+ Dorsalis Pedis (R), 2+ Left Dors-Pedis (L), 2+ Radial Pulses (R), 2+ Radial Pulses (L) Skin: warm/dry, rash Objective Exam Vital Signs Date Time Temp Pulse Resp B/P (MAP) Pulse Ox O2 Delivery O2 Flow Rate FiO2 02/28/23 04:19 36.4 86 18 146/72 (96) 96 Room Air 02/27/23 23:30 36.5 92 18 117/56 (76) 94 Room Air 02/27/23 19:57 36.6 89 16 115/56 (75) 95 Room Air 02/27/23 19:40 Room Air 02/27/23 15:34 36.6 87 17 128/60 (82) 96 Room Air 02/27/23 12:00 36.5 87 18 124/57 (79) 92 Room Air 02/27/23 08:40 Room Air 02/27/23 08:23 36.5 88 20 167/70 (102) 95 Room Air I & O 02/28/23 07:00 Intake Total 1260 ml Output Total 1100 ml Balance 160 ml Capillary Refill : Less Than 3 Seconds General Appearance: No Apparent Distress, WD/WN HEENT: PERRL/EOMI, Normal ENT Inspection Neck: Full Range of Motion, Non Tender Respiratory: Chest Non Tender, No Accessory Muscle Use, No Respiratory Distress Cardiovascular: Regular Rate, Rhythm, No JVD Peripheral Pulses: 2+ Dorsalis Pedis (R), 2+ Left Dors-Pedis (L), 2+ Radial Pulses (R), 2+ Radial Pulses (L) Gastrointestinal: non tender, soft Extremity: Inflammation (right lower ext), Pedal Edema (R foot edema) Neurologic/Psychiatric: Alert, Oriented x3, Normal Mood/Affect Skin: Erythema (R lower extremity with erythema coming from the lateral leg. R ankle with dressing applied where white scaling plaques were removed.), Rash Lymphatic: No Adenopathy Results Lab Laboratory Tests 02/27/23 10:09: Vancomycin Level Trough 20.7H 02/27/23 11:06: Glucometer 146H 02/27/23 15:37: Glucometer 164H 02/27/23 20:01: Glucometer 139H 02/28/23 05:27: Glucometer 145H 02/28/23 05:40: White Blood Count 8.1, Red Blood Count 3.98, Hemoglobin 10.2L, Hematocrit 32L, Mean Corpuscular Volume 80, Mean Corpuscular Hemoglobin 26, Mean Corpuscular Hemoglobin Concent 32, Red Cell Distribution Width 14.5, Platelet Count 327, Mean Platelet Volume 8.5L, Immature Granulocyte % (Auto) 1, Neutrophils (%) (Auto) 68, Lymphocytes (%) (Auto) 10L, Monocytes (%) (Auto) 7, Eosinophils (%) (Auto) 14H, Basophils (%) (Auto) 1, Neutrophils # (Auto) 5.5, Lymphocytes # (Auto) 0.8L, Monocytes # (Auto) 0.6, Eosinophils # (Auto) 1.1H, Basophils # (Auto) 0.0, Immature Granulocyte # (Auto) 0.0, Sodium Level 128L, Potassium Level 4.6, Chloride Level 95L, Carbon Dioxide Level 22, Anion Gap 11, Blood Urea Nitrogen 15, Creatinine 0.74, Estimat Glomerular Filtration Rate 90, BUN/Creatinine Ratio 20, Glucose Level 144H, Calcium Level 9.3, Magnesium Level 1.6 Microbiology 02/25/23 Urine Culture - Final, Complete NO GROWTH 02/25/23 Blood Culture - Preliminary, Resulted No growth Assessment/Plan Assessment/Plan Assessment/Plan R Lower extremity Cellulitis failed outpatient management Anemia Hyponatremia Continue vancomycin and cefepime and monitor. CT scan 02/25/23 shows no fluid collection but there is increasing subcutaneous stranding and skin thickening in keeping with cellulitis. No evidence suggesting osteomyelitis. Hgb is 10.2 today which is the same as yesterday. Monitor Na was 128 today down from 124 yesterday. Monitor. Wound care evaluation- encourage follow up d/t past hx of failed outpatient management MICHELE CUELLAR DO 02/28/23 1718: Subjective Subjective/Events-last exam Continues to improve. No new complaints. Swelling seems to be going down along with erythema. Denies n/v fever sweats chills shortness of breath or chest pain. Objective Exam General Appearance: No Apparent Distress, WD/WN HEENT: PERRL/EOMI, Normal ENT Inspection Neck: Full Range of Motion, Non Tender Respiratory: Chest Non Tender, No Accessory Muscle Use, No Respiratory Distress Cardiovascular: Regular Rate, Rhythm, No JVD Gastrointestinal: non tender, soft Extremity: Inflammation (right lower ext), Pedal Edema (R foot edema) Neurologic/Psychiatric: Alert, Oriented x3 Skin: Normal Color, Warm/Dry Lymphatic: No Adenopathy Assessment/Plan Assessment/Plan Assessment/Plan R Lower extremity Cellulitis failed outpatient management Anemia Hyponatremia Continue vancomycin and cefepime and monitor. CT scan 02/25/23 shows no fluid collection but there is increasing subcutaneous stranding and skin thickening in keeping with cellulitis. No evidence suggesting osteomyelitis. Hgb is 10.2 today which is the same as yesterday. Monitor Na was 128 today down from 124 yesterday. Monitor. Wound care evaluation- encourage follow up d/t past hx of failed outpatient management No surgical intervention, overall continues to improve. Supervisory-Addendum Brief Verification & Attestation Participated in pt care: history, MDM, physical Personally performed: exam, history, MDM, supervision of care Care discussed with: Medical Student Procedures: n/a Results interpretation: Verified all documentation Verification and Attestation of Medical Student E/M Service A medical student performed and documented this service in my presence. I reviewed and verified all information documented by the medical student and made modifications to such information, when appropriate. I personally performed the physical exam and medical decision making. Michele Cuellar, Feb 28, 2023,17:18 AVELINA FLORES Feb 28, 2023 07:09 MICHELE CUELLAR DO Feb 28, 2023 17:18
[2023-02-28 07:40] VITALS: BP 126/73
[2023-02-28] MEDS: amLODIPine 10 MG TABLET PO SCH (08:18)
[2023-02-28] MEDS: PANTOPRAZOLE 20 MG TABLET PO SCH (08:18)
[2023-02-28] MEDS: SPIRONOLACTONE 25 MG TABLET PO SCH (08:18)
[2023-02-28] MEDS: LOSARTAN 100 MG TABLET PO SCH (08:18)
[2023-02-28] MEDS: LACTOBACILLUS ACIDOPHILUS (PROBIOTIC) CAPSULE PO SCH ×3 (08:18→16:21)
[2023-02-28] MEDS: SENNOSIDES 8.6 MG TABLET PO SCH ×2 (08:24→20:08)
[2023-02-28] MEDS: SODIUM CHLORIDE 1 GM TABLET PO SCH ×2 (08:24→20:08)
[2023-02-28] MEDS: DOCUSATE SODIUM 100 MG CAPSULE PO SCH ×2 (08:24→20:08)
[2023-02-28] MEDS: VANCOMYCIN 750 MG/NS 250 ML IVPB IV SCH ×4 (08:25→20:15)
[2023-02-28] MEDS ORDERED: NON-FORMULARY MEDICATION 1 EA EA (Pioglitazone HCl 45 MG) PO SCH (09:00)
[2023-02-28] MEDS: CALCIUM CARBONATE 500 MG CHEW TABLET PO PRN ×2 (09:31→17:48)
--- NOTE | 2023-02-28 11:19 | Physical Therapy Daily Note ---
PT Daily Note-Current Subjective Pt sitting in recliner upon arrival. Pt agrees to PT for ambulation. Pain Location: No Pain Reported Section J - Health Conditions 1. Rarely or not at all 2. Occasionally 3. Frequently 4. Almost constantly 8. Unable to answer Pain Effect on Sleep: 2 Pain Interference with Therapy: 2 Pain Interference w/Day-to-Day: 2 Mental Status Patient Orientation: Person, Place, Time, Situation Attachments: IV Transfers SCALE: Activities may be completed with or without assistive devices. 1-Zbyzfnwkwh-plrllbs completes the activity by him/herself with no assistance from a helper. 5-Set-up or Clean-up Assistance-helper sets up or cleans up; patient completes activity. [place] assists only prior to or following the activity. 4-Supervision or Touching Assistance-helper provides verbal cues and/or touching/steadying and/or contact guard assistance as patient completes activity. Assistance may be provided throughout the activity or intermittently. 3-Partial/Moderate Assistance-helper does LESS THAN HALF the effort. [place] lifts, holds or supports trunk or limbs, but provides less than half the effort. 2-Substantial/Maximal Assistance-helper does MORE THAN HALF the effort. [place] lifts or holds trunk or limbs and provides more than half the effort. 4-Xoheqryph-wwsfwe does ALL the effort. Patient does none of the effort to complete the activity. Or, the assistance of 2 or more helpers is required for the patient to complete the activity. If activity was not attempted, code reason: 7-Patient Refused. 9-Not Applicable-not attempted and the patient did not perform the activity before the current illness, exacerbation or injury. 10-Not Attempted due to Environmental Limitations-(lack of equipment, weather restraints, etc.). 88-Not Attempted due to Medical Conditions or Safety Concerns. Sit to Stand (QC): 5 Gait Training Does the Patient Walk?: Yes Distance: 400' Walk 10 feet (QC): 5 Walk 50 ft with 2 Turns(QC): 5 Walk 150 ft (QC): 5 Gait Assistive Device: FWW Wheelchair Training Does the Pt Use a Wheelchair?: No Treatments Pt TF to Standing and amb in hallway, taking one standing RB as needed. Pt returns to room at end of tx to rest in recliner w/B LE elevated. All needs met, call light in hand. Assessment Current Status: Good Progress Pt is able to extend distance of amb as well as improve markus. PT Assisted Goals Cad Designer Drafter Goals PT Assisted Goals Time Frame: Mar 10, 2023 Roll Left & Right (QC): 6 Sit to Lying (QC): 6 Lying-Sitting on Side/Bed(QC): 6 Sit to Stand (QC): 6 Chair/Spe-xq-Hkmdr Xfer(QC): 6 Toilet Transfer (QC): 6 Walk 10 feet (QC): 5 Walk 50ft with 2 Turns (QC): 5 Walk 150 ft (QC): 5 PT Plan Problem List Problem List: Activity Tolerance Treatment/Plan Treatment Plan: Continue Plan of Care Treatment Plan: Education, Functional Activity Cj, Functional Strength, Gait, Safety, Therapeutic Exercise, Transfers Treatment Duration: Mar 10, 2023 Frequency: 5 times per week Estimated Hrs Per Day: .25 hour per day Safety Risks/Education Patient Education: Gait Training, Correct Positioning Teaching Recipient: Patient Teaching Methods: Discussion Response to Teaching: Verbalize Understanding Time Time In: 1015 Time Out: 1035 DATE: Feb 28, 2023 Total Billed Treatment Time: 20 Total Billed Treatment 1, GT (20m) [employer] Feb 28, 2023 11:19
[2023-02-28 12:17] VITALS: BP 130/73
--- NOTE | 2023-02-28 12:29 | Occupational Ther Daily Note ---
OT Current Status-Daily Note Subjective OT answering call light in shower, Patient is 1/2 completed drying and asking for assistance while seated on shower bench. Mental Status/Objective Patient Orientation: Person, Place, Time, Situation ADL-Treatment Assistance w/ drying lower BLEs/feet, back and buttocks. Min assist transfer from bench to stand. Gown applied and assistance w/ tying, no socks donned, slippers only d/t RN to address LE wounds dressing care, Patient stands at sink for hair/oral care w/ FWW. IV pole assistance from bathroom to recliner. Therapy Code Descriptions/Definitions Functional [place] Measure: 0=Not Assessed/NA 4=Minimal Assistance 1=Total Assistance 5=Supervision or Setup 2=Maximal Assistance 6=Modified [place] 3=Moderate Assistance 7=Complete IndependenceSCALE: Activities may be completed with or without assistive devices. 9-Uingsowzsg-etpmrsj completes the activity by him/herself with no assistance from a helper. 5-Set-up or Clean-up Assistance-helper sets up or cleans up; patient completes activity. [place] assists only prior to or following the activity. 4-Supervision or Touching Assistance-helper provides verbal cues and/or touching/steadying and/or contact guard assistance as patient completes activity. Assistance may be provided throughout the activity or intermittently. 3-Partial/Moderate Assistance-helper does LESS THAN HALF the effort. [place] lifts, holds or supports trunk or limbs, but provides less than half the effort. 2-Substantial/Maximal Assistance-helper does MORE THAN HALF the effort. [place] lifts or holds trunk or limbs and provides more than half the effort. 6-Niqpcdsow-cthqpm does ALL the effort. Patient does none of the effort to comp lete the activity. Or, the assistance of 2 or more helpers is required for the patient to complete the activity. If activity was not attempted, code reason: 7-Patient Refused. 9-Not Applicable-not attempted and the patient did not perform the activity before the current illness, exacerbation or injury. 10-Not Attempted due to Environmental Limitations-(lack of equipment, weather restraints, etc.). 88-Not Attempted due to Medical Conditions or Safety Concerns. Oral Hygiene (QC): 5 Bathing Location: L Lower Leg (including foot), R Lower Leg (including foot), Buttocks, Perineal Area Shower/Bathe Self (QC): 3 Upper Body Dressing (QC): 4 Lower Body Dressing (QC): 4 On/Off Footwear: 5 Toileting Hygiene (QC): 4 Toilet Transfer (QC): 4 Education OT Patient Education: Correct positioning, Energy conservation, Modified ADL techniques, Progress toward Goal/Update tx plan, Purpose of tx/functional activities, Reviewed precautions, Rehab process, Safety issues, Transfer techniques, Use of adapted equipment Teaching Recipient: Patient Teaching Methods: Demonstration, Discussion Response to Teaching: Return Demonstration, Reinforcement Needed OT Filter Changer Goals Filter Changer Goals Eating (QC): 6 Oral Hygiene (QC): 6 Toileting Hygiene (QC): 6 Shower/Bathe Self (QC): 6 Upper Body Dressing (QC): 6 Lower Body Dressing (QC): 6 On/Off Footwear (QC): 6 1=Demonstrate adherence to instructed precautions during ADL tasks. 2=Patient will verbalize/demonstrate understanding of assistive devices/modifications for ADL. 3=Patient will improve strength/tolerance for activity to enable patient to perform ADL's. OT Education/Plan Problem List/Assessment Assessment: Decreased Activ Tolerance, Decreased UE Strength, Impaired Self- Care Skills Discharge Recommendations Plan/Recommendations: Continue POC Treatment Plan/Plan of Care Treatment,Training & Education: Yes Patient would benefit from OT for education, treatment and training to promote independence in ADL's, mobility, safety and/or upper extremity function for ADL's. Plan of Care: ADL Retraining, Functional Mobility, Group Exercise/Act as Ind, UE Funct Exercise/Act Treatment Duration: Mar 03, 2023 Frequency: 3 times per week (3-5 times per week) Estimated Hrs Per Day: .25 hour per day Agreement: Yes Rehab Potential: Fair Time Start Time: 11:13 Stop Time: 11:25 DATE: Feb 28, 2023 Total Time Billed (hr/min): 12 Billed Treatment Time ADL 12 min ALY SANTAMARIA OT Feb 28, 2023 12:29
[2023-02-28] MEDS: ENOXAPARIN 40 MG/0.4 ML SYRINGE SC SCH (12:31)
--- NOTE | 2023-02-28 14:26 | Progress Note - Hospitalist ---
Subjective HPI/CC On Admission Date Seen by Provider: Feb 28, 2023 Pt is a 62 year old female with PMH HTN, T2DM, HLD, obesity, who presented with worsenign lower extremity swelling and erythema. She was admitted here last month with cellulitis and has been on antibiotics for roughly the entire month. She was on clindamycin and Levaquin at home and was doing better until a couple of days ago. She has been seeing her PCP weekly since discharge. She noticed the erythema spread up her thigh so decided to come back in for evaluation. She was admitted for IV abx. She reports her leg looks much better than when she came in yesterday. Subjective/Events-last exam Pt reports doing better today. No complaints. Thinks leg is doing better. Heartburn is better. Objective Exam Vital Signs Vital Signs Date Time Temp Pulse Resp B/P (MAP) Pulse Ox O2 Delivery O2 Flow Rate FiO2 02/28/23 12:17 36.5 82 18 130/73 (92) 96 Room Air Capillary Refill : Less Than 3 Seconds General Appearance: No Apparent Distress Respiratory: Lungs Clear, No Respiratory Distress Cardiovascular: Regular Rate, Rhythm, No Murmur Extremity: Other (erythema and edema improving) Results/Procedures Lab Laboratory Tests 02/28/23 05:40 Patient resulted labs reviewed. Imaging: Reviewed Imaging Report Assessment/Plan Assessment and Plan Assess & Plan/Chief Complaint Recurrent cellulitis Shantel infection Vanc only, doing well Diflucan CT without fluid collection Surgery consulted, appreciate recs Wound care consulted, appreciate recs Hyponatremia Chronically is ~131 128 today Continue fluid restriction and salt tabs asymptomatic T2DM Sliding scale insulin BS well controlled HTN HLD Obesity Continue home meds as appropriate DVT prophylaxis: BRIDGETTE Hall MD Feb 28, 2023 14:26
[2023-02-28 15:50] VITALS: BP 133/64
[2023-02-28] MEDS: glipiZIDE 5 MG TABLET PO SCH (16:24)
[2023-02-28] MEDS: MELATONIN 3 MG TABLET PO PRN (20:07)
[2023-02-28] MEDS: CELECOXIB 400 MG CAPSULE PO SCH (20:07)
[2023-02-28 20:12] VITALS: BP 147/71
[2023-02-28 23:04] VITALS: BP 115/60
[2023-03-01 05:45] LABS: BASOPHILS # (AUTO) 0.1 10^3/uL (0.0-0.1); BASOPHILS % (AUTO) 1 % (0-10); EOSINOPHILS # (AUTO) 1.1 10^3/uL (0.0-0.3); EOSINOPHILS % (AUTO) 14 % (0-10); HEMATOCRIT 28 % (35-52); LYMPHOCYTES # (AUTO) 1.2 10^3/uL (1.0-4.0); LYMPHOCYTES % (AUTO) 15 % (12-44); MEAN CORPUSCULAR HEMOGLOBIN 26 pg (25-34); MEAN CORPUSCULAR HGB CONC 32 g/dL (32-36); MEAN CORPUSCULAR VOLUME 80 fL (80-99); MEAN PLATELET VOLUME 8.8 fL (9.0-12.2); MONOCYTES # (AUTO) 0.7 10^3/uL (0.0-1.0); MONOCYTES % (AUTO) 9 % (0-12); NEUTROPHILS # (AUTO) 4.8 10^3/uL (1.8-7.8); NEUTROPHILS % (AUTO) 61 % (42-75); PLATELET COUNT 333 10^3/uL (130-400); WHITE BLOOD COUNT 7.8 10^3/uL (4.3-11.0)
[2023-03-01] MEDS: POTASSIUM BICARB 20 MEQ effervescent TABLET PO SCH (05:58)
[2023-03-01] MEDS: PIOGLITAZONE 30MG TABLET PO SCH (05:58)
[2023-03-01] MEDS: inSUlin ASPART 1 UNIT/0.01 ML (PER UNIT) SC SCH ×4 (06:02→20:46)
[2023-03-01 06:12] LABS: CALCIUM 9.2 MG/DL (8.5-10.1); CREATININE SERUM 0.72 MG/DL (0.60-1.30); MAGNESIUM 1.8 MG/DL (1.6-2.4); POTASSIUM 4.6 MMOL/L (3.6-5.0)
[2023-03-01] MEDS: POTASSIUM CHLORIDE 20 MEQ TABLET PO SCH (06:21)
[2023-03-01] MEDS: POTASSIUM CL 10MEQ/50ML IVPB 50 ML IV SCH (06:21)
[2023-03-01] MEDS: MAGNESIUM 1 GM/100 ML IVPB 100 ML IV SCH ×3 (06:22→07:51)
--- NOTE | 2023-03-01 07:08 | Progress Note - Surgery ---
AVELINA FLORES 03/01/23 0708: Subjective Date Seen by a Provider: Mar 01, 2023 Time Seen by a Provider: 07:04 Subjective/Events-last exam Pt is a 62 y/o female with R leg cellulitis which continues to improve. States that her erythema appears better. Reports continued itchiness and intermittent w hole body rash. Denies fever, n/v, diarrhea. Reports continued R LE edema Review of Systems General: No Chills, No Night Sweats HEENT: No Visual Changes, No Eye Pain Pulmonary: No Dyspnea, No Cough Cardiovascular: No: Chest Pain, Palpitations Gastrointestinal: No: Nausea, Vomiting, Diarrhea Genitourinary: No Dysuria, No Frequency Musculoskeletal: No: neck pain, shoulder pain Neurological: No: Change in speech, Confusion Focused Exam Sepsis Stage: Ruled Out Respiratory: No Accessory Muscle Use, No Respiratory Distress Cardiovascular: Regular Rate, Rhythm, Normal Peripheral Pulses Peripheral Pulses: 2+ Dorsalis Pedis (R), 2+ Left Dors-Pedis (L), 2+ Radial Pulses (R), 2+ Radial Pulses (L) Skin: warm/dry, rash Objective Exam Vital Signs Date Time Temp Pulse Resp B/P (MAP) Pulse Ox O2 Delivery O2 Flow Rate FiO2 02/28/23 23:04 36.7 82 18 115/60 (78) 95 Room Air 02/28/23 20:12 36.2 80 18 147/71 (96) 97 Room Air 02/28/23 20:10 Room Air 02/28/23 15:50 36.0 81 18 133/64 (87) 98 Room Air 02/28/23 12:17 36.5 82 18 130/73 (92) 96 Room Air 02/28/23 08:00 Room Air 02/28/23 07:40 36.4 84 18 126/73 (90) 97 Room Air I & O 03/01/23 07:00 Intake Total 2080 ml Output Total 1550 ml Balance 530 ml Capillary Refill : Less Than 3 Seconds General Appearance: No Apparent Distress, WD/WN HEENT: PERRL/EOMI, Normal ENT Inspection Neck: Full Range of Motion, Non Tender Respiratory: Chest Non Tender, No Accessory Muscle Use, No Respiratory Distress Cardiovascular: Regular Rate, Rhythm, No JVD Peripheral Pulses: 2+ Dorsalis Pedis (R), 2+ Left Dors-Pedis (L), 2+ Radial Pulses (R), 2+ Radial Pulses (L) Gastrointestinal: non tender, soft Extremity: Inflammation (right lower ext), Pedal Edema (R foot edema) Neurologic/Psychiatric: Alert, Oriented x3 Skin: Warm/Dry, Rash (R lower extremity with dressing applied at the ankle. Improving) Lymphatic: No Adenopathy Results Lab Laboratory Tests 02/28/23 12:15: Glucometer 170H 02/28/23 16:05: Glucometer 138H 02/28/23 21:07: Glucometer 118H 03/01/23 05:31: White Blood Count 7.8, Red Blood Count 3.48L, Hemoglobin 9.0L, Hematocrit 28L, Mean Corpuscular Volume 80, Mean Corpuscular Hemoglobin 26, Mean Corpuscular Hemoglobin Concent 32, Red Cell Distribution Width 14.6H, Platelet Count 333, Mean Platelet Volume 8.8L, Immature Granulocyte % (Auto) 0, Neutrophils (%) (Auto) 61, Lymphocytes (%) (Auto) 15, Monocytes (%) (Auto) 9, Eosinophils (%) (Auto) 14H, Basophils (%) (Auto) 1, Neutrophils # (Auto) 4.8, Lymphocytes # (Auto) 1.2, Monocytes # (Auto) 0.7, Eosinophils # (Auto) 1.1H, Basophils # (Auto) 0.1, Immature Granulocyte # (Auto) 0.0, Sodium Level 128L, Potassium Level 4.6, Chloride Level 94L, Carbon Dioxide Level 24, Anion Gap 10, Blood Urea Nitrogen 14, Creatinine 0.72, Estimat Glomerular Filtration Rate 93, BUN/Creatinine Ratio 19, Glucose Level 139H, Calcium Level 9.2, Magnesium Level 1.8 03/01/23 05:35: Glucometer 151H Microbiology 02/25/23 Urine Culture - Final, Complete NO GROWTH 02/25/23 Blood Culture - Preliminary, Resulted No growth Assessment/Plan Assessment/Plan Assessment/Plan R Lower extremity Cellulitis failed outpatient management Anemia Hyponatremia Continue vancomycin and monitor. CT scan 02/25/23 shows no fluid collection but there is increasing subcutaneous stranding and skin thickening in keeping with cellulitis. No evidence suggesting osteomyelitis. Hgb is 9.0 today down from 10.2 yesterday. Monitor Na was 128 today which is the same as yesterday. Monitor. Wound care evaluation- encourage follow up d/t past hx of failed outpatient management No surgical intervention, overall continues to improve. MICHELE CUELLAR DO 03/01/23 0857: Subjective Subjective/Events-last exam Doing well. No complaints. Leg she states improving. Denies n/v fever sweats chills shortness of breath or chest pain. Objective Exam General Appearance: No Apparent Distress, WD/WN HEENT: PERRL/EOMI, Normal ENT Inspection Neck: Full Range of Motion, Non Tender Respiratory: Chest Non Tender, No Accessory Muscle Use, No Respiratory Distress Cardiovascular: Regular Rate, Rhythm, No JVD Gastrointestinal: non tender, soft Extremity: Inflammation (right lower ext improving), Pedal Edema (R foot edema) Neurologic/Psychiatric: Alert, Oriented x3 Skin: Normal Color, Warm/Dry Lymphatic: No Adenopathy Assessment/Plan Assessment/Plan Assessment/Plan R Lower extremity Cellulitis failed outpatient management Anemia Hyponatremia Continue vancomycin and monitor. CT scan 02/25/23 shows no fluid collection but there is increasing subcutaneous stranding and skin thickening in keeping with cellulitis. No evidence suggesting osteomyelitis. Hgb is 9.0 today down from 10.2 yesterday. Monitor Na was 128 today which is the same as yesterday. Monitor. Wound care evaluation- encourage follow up d/t past hx of failed outpatient management No surgical intervention, overall continues to improve. Will sign off, call if needed. Supervisory-Addendum Brief Verification & Attestation Participated in pt care: history, MDM, physical Personally performed: exam, history, MDM, supervision of care Care discussed with: Medical Student Procedures: n/a Results interpretation: Verified all documentation Verification and Attestation of Medical Student E/M Service A medical student performed and documented this service in my presence. I reviewed and verified all information documented by the medical student and made modifications to such information, when appropriate. I personally performed the physical exam and medical decision making. Michele Cuellar, Mar 01, 2023,08:57 AVELINA FLORES Mar 01, 2023 07:08 MICHELE CUELLAR DO Mar 01, 2023 08:57
[2023-03-01 07:36] VITALS: BP 125/70
[2023-03-01] MEDS: LACTOBACILLUS ACIDOPHILUS (PROBIOTIC) CAPSULE PO SCH ×3 (08:14→17:56)
[2023-03-01] MEDS: DOCUSATE SODIUM 100 MG CAPSULE PO SCH ×2 (08:17→19:56)
[2023-03-01] MEDS: SENNOSIDES 8.6 MG TABLET PO SCH ×2 (08:17→19:57)
[2023-03-01] MEDS: SPIRONOLACTONE 25 MG TABLET PO SCH (08:53)
[2023-03-01] MEDS: VANCOMYCIN 750 MG/NS 250 ML IVPB IV SCH ×4 (08:53→19:56)
[2023-03-01] MEDS: LOSARTAN 100 MG TABLET PO SCH (08:53)
[2023-03-01] MEDS: amLODIPine 10 MG TABLET PO SCH (08:53)
[2023-03-01] MEDS: PANTOPRAZOLE 20 MG TABLET PO SCH (08:53)
[2023-03-01] MEDS: SODIUM CHLORIDE 1 GM TABLET PO SCH ×2 (08:54→19:57)
--- NOTE | 2023-03-01 09:15 | Physical Therapy Progress Note ---
Therapy Progress Note Patient ambulates >400' with FWW modified independent to independent and is at PLOF with all gross motor skills. Patient is up with nursing PRN. PT to dismiss patient from services at this time. Physician notified. TALIB BUSH PT Mar 01, 2023 09:15
--- NOTE | 2023-03-01 10:48 | Progress Note - Hospitalist ---
Subjective HPI/CC On Admission Date Seen by Provider: Mar 01, 2023 Pt is a 62 year old female with PMH HTN, T2DM, HLD, obesity, who presented with worsenign lower extremity swelling and erythema. She was admitted here last month with cellulitis and has been on antibiotics for roughly the entire month. She was on clindamycin and Levaquin at home and was doing better until a couple of days ago. She has been seeing her PCP weekly since discharge. She noticed the erythema spread up her thigh so decided to come back in for evaluation. She was admitted for IV abx. She reports her leg looks much better than when she came in yesterday. Subjective/Events-last exam Pt reports feeling better. No complaints. Thinks leg is improving. Discussed possibility of IV abx at home and she is hesitant to DC home. Objective Exam Vital Signs Vital Signs Date Time Temp Pulse Resp B/P (MAP) Pulse Ox O2 Delivery O2 Flow Rate FiO2 03/01/23 08:23 Room Air 03/01/23 07:36 36.5 83 18 125/70 (88) 95 Capillary Refill : Less Than 3 Seconds General Appearance: No Apparent Distress, Obese Respiratory: Lungs Clear, No Respiratory Distress Cardiovascular: Regular Rate, Rhythm, No Murmur Gastrointestinal: Normal Bowel Sounds, Soft Extremity: Other (erythema and edema improving still) Neurologic/Psychiatric: Alert, Oriented x3 Results/Procedures Lab Laboratory Tests 03/01/23 05:31 Patient resulted labs reviewed. Imaging: Reviewed Imaging Report Assessment/Plan Assessment and Plan Assess & Plan/Chief Complaint Recurrent cellulitis Shantel infection Vanc only, doing well Has PICC- consider DC home with IV abx and home health Diflucan CT without fluid collection Surgery consulted, appreciate recs Wound care consulted, appreciate recs Hyponatremia Chronically is ~131 128 today again, stable Continue fluid restriction and salt tabs asymptomatic T2DM Sliding scale insulin BS well controlled HTN HLD Obesity Continue home meds as appropriate DVT prophylaxis: BRIDGETTE Hall MD Mar 01, 2023 10:48
--- NOTE | 2023-03-01 13:42 | Occupational Ther Daily Note ---
OT Current Status-Daily Note Subjective Supervision ambulating to bathroom, patient manages IV pole. Mental Status/Objective Patient Orientation: Person, Place, Time, Situation Attachments: IV ADL-Treatment Toileting supervision only d/t IV pole and lines. Patents performs skills without vc or assistance Rash improving Therapy Code Descriptions/Definitions Functional [place] Measure: 0=Not Assessed/NA 4=Minimal Assistance 1=Total Assistance 5=Supervision or Setup 2=Maximal Assistance 6=Modified [place] 3=Moderate Assistance 7=Complete IndependenceSCALE: Activities may be completed with or without assistive devices. 7-Uxacrxzycx-fchouhe completes the activity by him/herself with no assistance from a helper. 5-Set-up or Clean-up Assistance-helper sets up or cleans up; patient completes activity. [place] assists only prior to or following the activity. 4-Supervision or Touching Assistance-helper provides verbal cues and/or touching/steadying and/or contact guard assistance as patient completes activity. Assistance may be provided throughout the activity or intermittently. 3-Partial/Moderate Assistance-helper does LESS THAN HALF the effort. [place] lifts, holds or supports trunk or limbs, but provides less than half the effort. 2-Substantial/Maximal Assistance-helper does MORE THAN HALF the effort. [place] lifts or holds trunk or limbs and provides more than half the effort. 9-Ksvkxvjuv-bcvbdo does ALL the effort. Patient does none of the effort to complete the activity. Or, the assistance of 2 or more helpers is required for the patient to complete the activity. If activity was not attempted, code reason: 7-Patient Refused. 9-Not Applicable-not attempted and the patient did not perform the activity before the current illness, exacerbation or injury. 10-Not Attempted due to Environmental Limitations-(lack of equipment, weather restraints, etc.). 88-Not Attempted due to Medical Conditions or Safety Concerns. Eating (QC): 6 Oral Hygiene (QC): 6 Toileting Hygiene (QC): 5 Toilet Transfer (QC): 5 Education OT Patient Education: Modified ADL techniques, Progress toward Goal/Update tx plan, Purpose of tx/functional activities, Reviewed precautions, Rehab process, Safety issues, Transfer techniques Teaching Recipient: Patient Teaching Methods: Demonstration Response to Teaching: Return Demonstration OT Longterm Goals Bag Bundler Goals Eating (QC): 6 Oral Hygiene (QC): 6 Toileting Hygiene (QC): 6 Shower/Bathe Self (QC): 6 Upper Body Dressing (QC): 6 Lower Body Dressing (QC): 6 On/Off Footwear (QC): 6 1=Demonstrate adherence to instructed precautions during ADL tasks. 2=Patient will verbalize/demonstrate understanding of assistive devices/modifications for ADL. 3=Patient will improve strength/tolerance for activity to enable patient to perform ADL's. OT Education/Plan Discharge Recommendations Plan/Recommendations: Continue POC Comment Likely to DC tomorrow from therapy Treatment Plan/Plan of Care Treatment,Training & Education: Yes Patient would benefit from OT for education, treatment and training to promote independence in ADL's, mobility, safety and/or upper extremity function for ADL's. Plan of Care: ADL Retraining, Functional Mobility, Group Exercise/Act as Ind, UE Funct Exercise/Act Treatment Duration: Mar 03, 2023 Frequency: 3 times per week (3-5 times per week) Estimated Hrs Per Day: .25 hour per day Agreement: Yes Rehab Potential: Fair Time Start Time: 13:12 Stop Time: 13:25 DATE: Mar 01, 2023 Total Time Billed (hr/min): 13 Billed Treatment Time ADL 13 min ALY SANTAMARIA OT Mar 01, 2023 13:42
[2023-03-01] MEDS: ENOXAPARIN 40 MG/0.4 ML SYRINGE SC SCH (15:03)
[2023-03-01 15:50] VITALS: BP 136/82
[2023-03-01] MEDS: glipiZIDE 5 MG TABLET PO SCH (17:55)
[2023-03-01 19:40] VITALS: BP 137/78
[2023-03-01] MEDS: MELATONIN 3 MG TABLET PO PRN (19:56)
[2023-03-01] MEDS: CELECOXIB 400 MG CAPSULE PO SCH (19:56)
[2023-03-01 23:32] VITALS: BP 143/91
[2023-03-02] MEDS: ACETAMINOPHEN 325 MG TABLET PO PRN (03:44)
[2023-03-02] MEDS: POTASSIUM BICARB 20 MEQ effervescent TABLET PO SCH (03:46)
[2023-03-02 05:09] LABS: BASOPHILS # (AUTO) 0.1 10^3/uL (0.0-0.1); BASOPHILS % (AUTO) 1 % (0-10); EOSINOPHILS # (AUTO) 1.1 10^3/uL (0.0-0.3); EOSINOPHILS % (AUTO) 13 % (0-10); HEMATOCRIT 29 % (35-52); HEMOGLOBIN 9.2 g/dL (11.5-16.0); LYMPHOCYTES # (AUTO) 1.4 10^3/uL (1.0-4.0); LYMPHOCYTES % (AUTO) 17 % (12-44); MEAN CORPUSCULAR HEMOGLOBIN 26 pg (25-34); MEAN CORPUSCULAR HGB CONC 32 g/dL (32-36); MEAN CORPUSCULAR VOLUME 81 fL (80-99); MEAN PLATELET VOLUME 8.5 fL (9.0-12.2); MONOCYTES # (AUTO) 0.7 10^3/uL (0.0-1.0); MONOCYTES % (AUTO) 8 % (0-12); NEUTROPHILS # (AUTO) 5.2 10^3/uL (1.8-7.8); NEUTROPHILS % (AUTO) 61 % (42-75); PLATELET COUNT 334 10^3/uL (130-400); WHITE BLOOD COUNT 8.5 10^3/uL (4.3-11.0)
[2023-03-02 05:16] LABS: POTASSIUM 4.4 MMOL/L (3.6-5.0)
[2023-03-02 05:18] LABS: CALCIUM 9.3 MG/DL (8.5-10.1)
[2023-03-02] MEDS: POTASSIUM CHLORIDE 20 MEQ TABLET PO SCH (05:20)
[2023-03-02] MEDS: POTASSIUM CL 10MEQ/50ML IVPB 50 ML IV SCH (05:20)
[2023-03-02] MEDS: inSUlin ASPART 1 UNIT/0.01 ML (PER UNIT) SC SCH ×4 (05:20→21:36)
[2023-03-02 05:22] LABS: CREATININE SERUM 0.73 MG/DL (0.60-1.30)
[2023-03-02 05:24] LABS: EOSINOPHILS % (MANUAL) 17 %; LYMPHOCYTES % (MANUAL) 13 %; MAGNESIUM 1.4 MG/DL (1.6-2.4); MONOCYTES % (MANUAL) 5 %; NEUTROPHILS % (MANUAL) 65 %; RBC MORPH NORMAL
[2023-03-02] MEDS: MAGNESIUM 1 GM/100 ML IVPB 100 ML IV SCH ×5 (05:52→10:38)
[2023-03-02] MEDS: PIOGLITAZONE 30MG TABLET PO SCH (05:56)
[2023-03-02] MEDS ORDERED: MAGNESIUM 1 GM/100 ML IVPB 100 ML IV ONE (06:05)
[2023-03-02 07:56] VITALS: BP 131/71
[2023-03-02] MEDS: LACTOBACILLUS ACIDOPHILUS (PROBIOTIC) CAPSULE PO SCH ×3 (08:05→16:04)
[2023-03-02] MEDS: PANTOPRAZOLE 20 MG TABLET PO SCH (08:05)
[2023-03-02] MEDS: amLODIPine 10 MG TABLET PO SCH (08:05)
[2023-03-02] MEDS: SENNOSIDES 8.6 MG TABLET PO SCH ×2 (08:05→21:35)
[2023-03-02] MEDS: SPIRONOLACTONE 25 MG TABLET PO SCH (08:05)
[2023-03-02] MEDS: DOCUSATE SODIUM 100 MG CAPSULE PO SCH ×2 (08:05→21:35)
[2023-03-02] MEDS: LOSARTAN 100 MG TABLET PO SCH (08:05)
[2023-03-02] MEDS: SODIUM CHLORIDE 1 GM TABLET PO SCH ×2 (08:06→21:39)
[2023-03-02] MEDS: VANCOMYCIN 750 MG/NS 250 ML IVPB IV SCH ×2 (08:14)
--- NOTE | 2023-03-02 12:14 | Progress Note - Hospitalist ---
Subjective HPI/CC On Admission Date Seen by Provider: Mar 02, 2023 Pt is a 62 year old female with PMH HTN, T2DM, HLD, obesity, who presented with worsenign lower extremity swelling and erythema. She was admitted here last month with cellulitis and has been on antibiotics for roughly the entire month. She was on clindamycin and Levaquin at home and was doing better until a couple of days ago. She has been seeing her PCP weekly since discharge. She noticed the erythema spread up her thigh so decided to come back in for evaluation. She was admitted for IV abx. She reports her leg looks much better than when she came in yesterday. Subjective/Events-last exam Pt reports feeling better. No complaints. Leg still swollen but erythema improving. Objective Exam Vital Signs Vital Signs Date Time Temp Pulse Resp B/P (MAP) Pulse Ox O2 Delivery O2 Flow Rate FiO2 03/02/23 08:00 Room Air 03/02/23 07:56 36.5 89 18 131/71 (91) 97 Capillary Refill : Less Than 3 Seconds General Appearance: No Apparent Distress Respiratory: Lungs Clear Cardiovascular: Regular Rate, Rhythm, No Murmur Gastrointestinal: Normal Bowel Sounds, Soft Extremity: Swelling, Other (erythema stable maybe mildly improved from yesterday- less warm) Neurologic/Psychiatric: Alert, Oriented x3 Results/Procedures Lab Laboratory Tests 03/02/23 05:00 Patient resulted labs reviewed. Imaging: Reviewed Imaging Report Assessment/Plan Assessment and Plan Assess & Plan/Chief Complaint Recurrent cellulitis Shantel infection Vanc only, doing well Has PICC- consider DC home with IV abx and home health when able Diflucan CT without fluid collection Surgery consulted, appreciate recs Wound care consulted, appreciate recs Hyponatremia Chronically is ~131 128 today again, stable Continue fluid restriction and salt tabs asymptomatic T2DM Sliding scale insulin BS well controlled HTN HLD Obesity Continue home meds DVT prophylaxis: BRIDGETTE Hall MD Mar 02, 2023 12:14
[2023-03-02] MEDS ORDERED: VANC1PIG IV (14:42)
[2023-03-02] MEDS: ENOXAPARIN 40 MG/0.4 ML SYRINGE SC SCH (15:19)
[2023-03-02] MEDS: glipiZIDE 5 MG TABLET PO SCH (16:04)
[2023-03-02 16:13] VITALS: BP 134/82
[2023-03-02 20:21] VITALS: BP 133/84
[2023-03-02] MEDS ORDERED: VANCOMYCIN 750 MG/NS 250 ML IVPB IV NR ×2 (21:00)
[2023-03-02] MEDS: CELECOXIB 400 MG CAPSULE PO SCH (21:35)
[2023-03-03 00:04] VITALS: BP 131/73
[2023-03-03] MEDS: ACETAMINOPHEN 325 MG TABLET PO PRN ×2 (03:50→22:41)
[2023-03-03] MEDS: inSUlin ASPART 1 UNIT/0.01 ML (PER UNIT) SC SCH ×4 (06:11→22:17)
[2023-03-03 06:17] LABS: BASOPHILS # (AUTO) 0.1 10^3/uL (0.0-0.1); BASOPHILS % (AUTO) 1 % (0-10); EOSINOPHILS % (AUTO) 12 % (0-10); HEMATOCRIT 29 % (35-52); HEMOGLOBIN 9.1 g/dL (11.5-16.0); LYMPHOCYTES # (AUTO) 1.8 10^3/uL (1.0-4.0); LYMPHOCYTES % (AUTO) 21 % (12-44); MEAN CORPUSCULAR HEMOGLOBIN 26 pg (25-34); MEAN CORPUSCULAR HGB CONC 32 g/dL (32-36); MEAN CORPUSCULAR VOLUME 81 fL (80-99); MEAN PLATELET VOLUME 8.8 fL (9.0-12.2); MONOCYTES # (AUTO) 0.7 10^3/uL (0.0-1.0); MONOCYTES % (AUTO) 8 % (0-12); NEUTROPHILS % (AUTO) 59 % (42-75); PLATELET COUNT 355 10^3/uL (130-400); WHITE BLOOD COUNT 8.6 10^3/uL (4.3-11.0)
[2023-03-03 06:35] LABS: POTASSIUM 4.2 MMOL/L (3.6-5.0)
[2023-03-03 06:36] LABS: CALCIUM 9.5 MG/DL (8.5-10.1)
[2023-03-03 06:40] LABS: CREATININE SERUM 0.68 MG/DL (0.60-1.30)
[2023-03-03 06:43] LABS: MAGNESIUM 1.6 MG/DL (1.6-2.4)
[2023-03-03] MEDS: POTASSIUM CL 10MEQ/50ML IVPB 50 ML IV SCH (06:43)
[2023-03-03] MEDS: POTASSIUM BICARB 20 MEQ effervescent TABLET PO SCH (06:44)
[2023-03-03] MEDS: POTASSIUM CHLORIDE 20 MEQ TABLET PO SCH (06:45)
[2023-03-03] MEDS: MAGNESIUM 1 GM/100 ML IVPB 100 ML IV SCH (06:52)
[2023-03-03] MEDS: LACTOBACILLUS ACIDOPHILUS (PROBIOTIC) CAPSULE PO SCH ×3 (08:17→17:50)
[2023-03-03] MEDS: SPIRONOLACTONE 25 MG TABLET PO SCH (08:17)
[2023-03-03] MEDS: amLODIPine 10 MG TABLET PO SCH (08:17)
[2023-03-03] MEDS: PANTOPRAZOLE 20 MG TABLET PO SCH (08:17)
[2023-03-03] MEDS: VANCOMYCIN 1 GM/NS 250 ML IVPB IV SCH ×2 (08:17)
[2023-03-03] MEDS: SENNOSIDES 8.6 MG TABLET PO SCH ×2 (08:17→21:14)
[2023-03-03] MEDS: LOSARTAN 100 MG TABLET PO SCH (08:17)
[2023-03-03] MEDS: DOCUSATE SODIUM 100 MG CAPSULE PO SCH ×2 (08:17→21:14)
[2023-03-03] MEDS: SODIUM CHLORIDE 1 GM TABLET PO SCH ×2 (08:18→21:14)
[2023-03-03 08:19] VITALS: BP 134/77
--- NOTE | 2023-03-03 10:22 | Progress Note - Hospitalist ---
Subjective HPI/CC On Admission Date Seen by Provider: Mar 03, 2023 Pt is a 62 year old female with PMH HTN, T2DM, HLD, obesity, who presented with worsenign lower extremity swelling and erythema. She was admitted here last month with cellulitis and has been on antibiotics for roughly the entire month. She was on clindamycin and Levaquin at home and was doing better until a couple of days ago. She has been seeing her PCP weekly since discharge. She noticed the erythema spread up her thigh so decided to come back in for evaluation. She was admitted for IV abx. She reports her leg looks much better than when she came in yesterday. Subjective/Events-last exam Pt reports doing much better today. Leg swelling improving. No complaints. Objective Exam Vital Signs Vital Signs Date Time Temp Pulse Resp B/P (MAP) Pulse Ox O2 Delivery O2 Flow Rate FiO2 03/03/23 08:19 36.8 81 19 134/77 (96) 96 Room Air Capillary Refill : Less Than 3 Seconds General Appearance: No Apparent Distress, WD/WN Respiratory: Lungs Clear, No Respiratory Distress Cardiovascular: Regular Rate, Rhythm, No Murmur Extremity: Swelling (improving), Other (erythema improving) Neurologic/Psychiatric: Alert, Oriented x3 Results/Procedures Lab Laboratory Tests 03/03/23 05:30 Patient resulted labs reviewed. Imaging: Reviewed Imaging Report Assessment/Plan Assessment and Plan Assess & Plan/Chief Complaint Recurrent cellulitis- improving Shantel infection Vanc only, doing well Has PICC- will DC home 03/05 with IV abx and home health Diflucan CT without fluid collection on admission Surgery consulted, appreciate recs Wound care consulted, appreciate recs Hyponatremia Chronically is ~131 131 today- will increase fluid restriction to 1800ml as she is at her baselin e Continue salt tabs asymptomatic T2DM Sliding scale insulin BS well controlled HTN HLD Obesity Continue home meds DVT prophylaxis: BRIDGETTE Hall MD Mar 03, 2023 10:22
[2023-03-03] MEDS: PIOGLITAZONE 30MG TABLET PO SCH (10:38)
[2023-03-03] MEDS: ENOXAPARIN 40 MG/0.4 ML SYRINGE SC SCH (16:13)
[2023-03-03 16:30] VITALS: BP 119/62
[2023-03-03] MEDS: glipiZIDE 5 MG TABLET PO SCH (17:50)
[2023-03-03] MEDS: CELECOXIB 400 MG CAPSULE PO SCH (21:14)
[2023-03-03 23:50] VITALS: BP 129/60
[2023-03-04] MEDS: inSUlin ASPART 1 UNIT/0.01 ML (PER UNIT) SC SCH ×4 (06:10→21:05)
[2023-03-04 06:31] LABS: BASOPHILS # (AUTO) 0.1 10^3/uL (0.0-0.1); BASOPHILS % (AUTO) 1 % (0-10); EOSINOPHILS % (AUTO) 12 % (0-10); HEMATOCRIT 28 % (35-52); LYMPHOCYTES % (AUTO) 24 % (12-44); MEAN CORPUSCULAR HEMOGLOBIN 26 pg (25-34); MEAN CORPUSCULAR HGB CONC 32 g/dL (32-36); MEAN CORPUSCULAR VOLUME 81 fL (80-99); MONOCYTES # (AUTO) 0.8 10^3/uL (0.0-1.0); MONOCYTES % (AUTO) 9 % (0-12); NEUTROPHILS # (AUTO) 4.4 10^3/uL (1.8-7.8); NEUTROPHILS % (AUTO) 53 % (42-75); PLATELET COUNT 353 10^3/uL (130-400); WHITE BLOOD COUNT 8.3 10^3/uL (4.3-11.0)
[2023-03-04 06:39] LABS: CALCIUM 9.5 MG/DL (8.5-10.1); CREATININE SERUM 0.73 MG/DL (0.60-1.30); MAGNESIUM 1.4 MG/DL (1.6-2.4); POTASSIUM 4.2 MMOL/L (3.6-5.0)
[2023-03-04] MEDS: POTASSIUM CHLORIDE 20 MEQ TABLET PO SCH (06:41)
[2023-03-04] MEDS: POTASSIUM BICARB 20 MEQ effervescent TABLET PO SCH (06:41)
[2023-03-04] MEDS: POTASSIUM CL 10MEQ/50ML IVPB 50 ML IV SCH (06:41)
[2023-03-04] MEDS: MAGNESIUM 1 GM/100 ML IVPB 100 ML IV SCH ×7 (06:41→12:48)
[2023-03-04] MEDS: PIOGLITAZONE 30MG TABLET PO SCH (06:53)
[2023-03-04 07:37] VITALS: BP 139/79
[2023-03-04] MEDS: LACTOBACILLUS ACIDOPHILUS (PROBIOTIC) CAPSULE PO SCH ×3 (08:00→15:44)
[2023-03-04] MEDS: SPIRONOLACTONE 25 MG TABLET PO SCH (08:47)
[2023-03-04] MEDS: DOCUSATE SODIUM 100 MG CAPSULE PO SCH ×2 (08:47→20:30)
[2023-03-04] MEDS: LOSARTAN 100 MG TABLET PO SCH (08:47)
[2023-03-04] MEDS: PANTOPRAZOLE 20 MG TABLET PO SCH (08:47)
[2023-03-04] MEDS: SENNOSIDES 8.6 MG TABLET PO SCH ×2 (08:47→20:30)
[2023-03-04] MEDS: amLODIPine 10 MG TABLET PO SCH (09:04)
[2023-03-04] MEDS: SODIUM CHLORIDE 1 GM TABLET PO SCH ×2 (09:04→20:30)
[2023-03-04] MEDS: VANCOMYCIN 1 GM/NS 250 ML IVPB IV SCH ×2 (09:04)
--- NOTE | 2023-03-04 12:30 | Progress Note - Hospitalist ---
Subjective HPI/CC On Admission Date Seen by Provider: Mar 04, 2023 Pt is a 62 year old female with PMH HTN, T2DM, HLD, obesity, who presented with worsenign lower extremity swelling and erythema. She was admitted here last month with cellulitis and has been on antibiotics for roughly the entire month. She was on clindamycin and Levaquin at home and was doing better until a couple of days ago. She has been seeing her PCP weekly since discharge. She noticed the erythema spread up her thigh so decided to come back in for evaluation. She was admitted for IV abx. She reports her leg looks much better than when she came in yesterday. Subjective/Events-last exam Pt reports doing well. No complaints. Feeling much better. Objective Exam Vital Signs Vital Signs Date Time Temp Pulse Resp B/P (MAP) Pulse Ox O2 Delivery O2 Flow Rate FiO2 03/04/23 09:27 97 Room Air 03/04/23 07:37 36.3 86 18 139/79 (99) Capillary Refill : Less Than 3 Seconds General Appearance: No Apparent Distress, Obese Respiratory: Lungs Clear Cardiovascular: Regular Rate, Rhythm Extremity: Other (erythema much improved on foot and thigh and upper calve- still has persistent erythema around ankle and calf- edema improved) Neurologic/Psychiatric: Alert, Oriented x3 Results/Procedures Lab Laboratory Tests 03/04/23 05:21 Patient resulted labs reviewed. Imaging: Reviewed Imaging Report Assessment/Plan Assessment and Plan Assess & Plan/Chief Complaint Recurrent cellulitis- improving Shantel infection Vanc only, doing well Has PICC- will DC home 03/05 with IV abx and home health Diflucan CT without fluid collection on admission Surgery consulted, appreciate recs Wound care consulted, appreciate recs Hyponatremia Chronically is ~131- stable Continue salt tabs asymptomatic T2DM Sliding scale insulin BS well controlled HTN HLD Obesity Continue home meds DVT prophylaxis: [employer] BRIDGETTE ORR MD Mar 04, 2023 12:29
[2023-03-04] MEDS: ENOXAPARIN 40 MG/0.4 ML SYRINGE SC SCH (15:43)
[2023-03-04 16:03] VITALS: BP 128/86
[2023-03-04] MEDS: glipiZIDE 5 MG TABLET PO SCH (17:06)
[2023-03-04] MEDS: CELECOXIB 400 MG CAPSULE PO SCH (20:30)
[2023-03-04 23:48] VITALS: BP 134/75
[2023-03-05 05:23] LABS: BASOPHILS # (AUTO) 0.1 10^3/uL (0.0-0.1); BASOPHILS % (AUTO) 1 % (0-10); EOSINOPHILS % (AUTO) 12 % (0-10); HEMATOCRIT 28 % (35-52); LYMPHOCYTES % (AUTO) 23 % (12-44); MEAN CORPUSCULAR HEMOGLOBIN 26 pg (25-34); MEAN CORPUSCULAR HGB CONC 32 g/dL (32-36); MEAN CORPUSCULAR VOLUME 81 fL (80-99); MEAN PLATELET VOLUME 8.7 fL (9.0-12.2); MONOCYTES # (AUTO) 0.6 10^3/uL (0.0-1.0); MONOCYTES % (AUTO) 7 % (0-12); NEUTROPHILS # (AUTO) 5.1 10^3/uL (1.8-7.8); NEUTROPHILS % (AUTO) 57 % (42-75); PLATELET COUNT 376 10^3/uL (130-400); WHITE BLOOD COUNT 8.9 10^3/uL (4.3-11.0)
[2023-03-05 05:42] LABS: CALCIUM 9.5 MG/DL (8.5-10.1); CREATININE SERUM 0.76 MG/DL (0.60-1.30); MAGNESIUM 1.6 MG/DL (1.6-2.4); POTASSIUM 4.2 MMOL/L (3.6-5.0)
[2023-03-05] MEDS: POTASSIUM CL 10MEQ/50ML IVPB 50 ML IV SCH (05:52)
[2023-03-05] MEDS: POTASSIUM BICARB 20 MEQ effervescent TABLET PO SCH (05:53)
[2023-03-05] MEDS: POTASSIUM CHLORIDE 20 MEQ TABLET PO SCH (05:54)
[2023-03-05] MEDS: MAGNESIUM 1 GM/100 ML IVPB 100 ML IV SCH ×2 (06:04→08:36)
[2023-03-05] MEDS: inSUlin ASPART 1 UNIT/0.01 ML (PER UNIT) SC SCH ×2 (06:05→11:21)
[2023-03-05] MEDS: PIOGLITAZONE 30MG TABLET PO SCH (06:20)
[2023-03-05] MEDS ORDERED: TROUGH ORDER-PHARMACY XX ONE (08:00)
[2023-03-05 08:27] VITALS: BP 161/80
[2023-03-05] MEDS: LOSARTAN 100 MG TABLET PO SCH (08:43)
[2023-03-05] MEDS: amLODIPine 10 MG TABLET PO SCH (08:43)
[2023-03-05] MEDS: PANTOPRAZOLE 20 MG TABLET PO SCH (08:43)
[2023-03-05] MEDS: LACTOBACILLUS ACIDOPHILUS (PROBIOTIC) CAPSULE PO SCH ×2 (08:43→13:09)
[2023-03-05] MEDS: SPIRONOLACTONE 25 MG TABLET PO SCH (08:43)
[2023-03-05] MEDS: SENNOSIDES 8.6 MG TABLET PO SCH (08:44)
[2023-03-05] MEDS: SODIUM CHLORIDE 1 GM TABLET PO SCH (08:44)
[2023-03-05] MEDS: DOCUSATE SODIUM 100 MG CAPSULE PO SCH (08:44)
[2023-03-05] MEDS: VANCOMYCIN 1 GM/NS 250 ML IVPB IV SCH ×2 (09:51)
[2023-03-05] MEDS ORDERED: VANCOMYCIN 1250 MG/NS 250 ML PREMIX IV SCH (10:00)
[2023-03-05] MEDS ORDERED: VANC1.2529 IV (12:38)
[2023-03-05] MEDS ORDERED: NF-NACL1GT PO (13:55)
--- NOTE | 2023-03-05 13:58 | D/C HH Face to Face Order ---
D/C Face to Face Orders Instructions for Patient Via [facility], Patient Instructions/FollowUp: see instructions Physician to follow Patient: Gricelda Discharge Diet for Home: ADA Diet Patient Data-Allergies,Ht & Wt Patient Allergies: Coded Allergies: Sulfa (Sulfonamide Antibiotics) (Verified Allergy, Unknown, 02/03/23) amoxicillin (Verified Allergy, Unknown, Red, itchy rash all over body, 03/01/23) clavulanic acid (Verified Allergy, Unknown, Red, itchy rash all over body, 03/01/23) clindamycin (Verified Allergy, Unknown, Red, itchy rash all over body, 03/01/23) took several days to clear up after stopping medication diphenhydramine (Verified Allergy, Unknown, 02/03/23) doxycycline (Verified Allergy, Unknown, Red, itchy rash all over body, 03/01/23) levofloxacin (Verified Allergy, Unknown, red, itchy rash all over body, 03/01/23) took several days to clear after stopping the medication Height (Feet): 5 Height (Inches): 2.00 Weight (Pounds): 175 Weight (Ounces): 0.0 Home Health Need/Face to Face Date of Face to Face: Mar 05, 2023 Clinical Findings: Generalized weakness and fatigue, Instability, Muscle weakness I have seen Pt [id number]: Yes Discharged To: Home Diagnosis/Conditions: Cellulitis Hyponatremia Diabetes Hypertension Obesity Problems/Diagnosis/Condition: (1) Cellulitis (2) Hyponatremia (3) HTN (hypertension) (4) T2DM (type 2 diabetes mellitus) (5) Obesity Patient is Homebound due to: Holly fall risk due to instabilty, Muscle weakness Homebound Status Due to the above stated illness, injury or surgical procedure (medical condition or diagnosis) and associated clinical findings, the patient is homebound because of his/her inability to leave home except with aid of a supportive device and/or person AND leaving the home requires a considerable and taxing effort or is medically contraindicated. Pt req the following assistanc: Aid of another person Home Health Nursing Orders Home Health Services Order: Nursing Services, Drosophere Operator-Evaluate & Treat, Physical Therapy-Evaluate & Treat, Wound Care-Eval/Treat Home Health Infusion Therapy Line Start Date: Mar 01, 2023 Therapy Orders Therapy Orders: OT (must have SN or PT order), Physical Therapy Therapy Specific Orders: Eval assistive deivces, Teach enviro modifications/safety, Gait training, Increase strength/endurance Certify Stmt I certify that this patient is under my care and that I, a nurse practitioner or a physician; a electrician's assistant working with me, had a face to face encounter that - meets the physician face to face encounter requirements with this patient as dated. MARTÍN ANDERSON MD Mar 05, 2023 13:58
[2023-03-05] MEDS: ENOXAPARIN 40 MG/0.4 ML SYRINGE SC SCH (14:09)
== END 2023-03-05 14:35 | disposition home health service (06) | DRG 868 ==
LOC: EDUNIT# 11:01 → ER 11:04 → 4TH 13:38
PROVIDERS: ADMIT Internal Medicine; ATTEND Internal Medicine
DX: B37.9 Candidiasis, unspecified (principal); E87.1 Hypo-osmolality and hyponatremia; L03.115 Cellulitis of right lower limb; L97.311 Non-pressure chronic ulcer of right ankle limited to breakdown of skin; L97.321 Non-pressure chronic ulcer of left ankle limited to breakdown of skin; I10 Essential (primary) hypertension; E66.9 Obesity, unspecified; Z87.891 Personal history of nicotine dependence; J44.9 Chronic obstructive pulmonary disease, unspecified; E78.00 Pure hypercholesterolemia, unspecified; E11.40 Type 2 diabetes mellitus with diabetic neuropathy, unspecified; I89.0 Lymphedema, not elsewhere classified; E11.622 Type 2 diabetes mellitus with other skin ulcer; D64.9 Anemia, unspecified; E83.42 Hypomagnesemia
CPT/HCPCS: 36415; 36569; 73701; 76937; 80048; 80053; 80202; 81000; 82947; 83605; 83735; 84295; 85007; 85025; 85027; 85610; 85730; 87040; 87088; 93005; 96361; 96365; 96375

== ENCOUNTER → 2023-03-08 | Outpatient (CLI) | payer BC ==
[~2023-03-08] MED LIST changes: +ASCO-262 PO; +CHOL-34 PO; +MAGN250T35 PO; +NF-NACL1GT PO; +OMEP40CA6 PO; +SPIR25TA PO; +VANC1.2529 IV; +VANC1PIG IV; +ZINC50TA51 PO
== END ==
LOC: WOUNDCARE 13:34
PROVIDERS: ATTEND Family Medicine
DX: L03.115 Cellulitis of right lower limb (principal); I89.0 Lymphedema, not elsewhere classified; E11.9 Type 2 diabetes mellitus without complications; E66.01 Morbid (severe) obesity due to excess calories; Z68.36 Body mass index [BMI] 36.0-36.9, adult
CPT/HCPCS: 99212

== ENCOUNTER 2023-03-15 11:15 | Outpatient (RCR) | payer BC ==
[2023-03-06 11:20] VITALS: BP 140/82
[2023-03-06] MEDS: VANCOMYCIN 1250 MG/NS 250 ML PREMIX IV SCH (11:34)
[2023-03-07] MEDS: VANCOMYCIN 1250 MG/NS 250 ML PREMIX IV SCH (11:20)
[2023-03-07 11:25] VITALS: BP 133/69
[2023-03-08 11:00] VITALS: BP 142/79
[2023-03-08] MEDS: VANCOMYCIN 1250 MG/NS 250 ML PREMIX IV SCH (12:02)
[2023-03-09] MEDS: VANCOMYCIN 1250 MG/NS 250 ML PREMIX IV SCH (11:03)
[2023-03-09 11:12] VITALS: BP 142/79
[2023-03-10 10:50] VITALS: BP 136/79
[2023-03-10] MEDS: VANCOMYCIN 1250 MG/NS 250 ML PREMIX IV SCH (10:56)
[2023-03-11] MEDS: VANCOMYCIN 1250 MG/NS 250 ML PREMIX IV SCH (11:14)
[2023-03-11 14:29] VITALS: BP 127/74
[2023-03-12 11:45] VITALS: BP 140/74
[2023-03-12] MEDS: VANCOMYCIN 1250 MG/NS 250 ML PREMIX IV SCH (12:01)
[2023-03-13 11:15] VITALS: BP 142/101
[2023-03-13] MEDS: VANCOMYCIN 1250 MG/NS 250 ML PREMIX IV SCH (11:17)
[2023-03-14] MEDS: VANCOMYCIN 1250 MG/NS 250 ML PREMIX IV SCH (11:26)
[2023-03-14 11:48] VITALS: BP 142/101
[~2023-03-15] VITALS: Ht 162.6 cm; Wt 95.0 kg
[~2023-03-15 11:15] MED LIST changes: -CELE400C10 PO; +CELE400C16 PO
[2023-03-15] MEDS: VANCOMYCIN 1250 MG/NS 250 ML PREMIX IV SCH (11:52)
[2023-03-15 12:00] VITALS: BP 142/101
== END 2023-03-24 | disposition home or self-care (01) ==
LOC: SDC 11:15
PROVIDERS: ATTEND Internal Medicine
DX: L03.90 Cellulitis, unspecified (principal)
CPT/HCPCS: 96365; 96366; 99211

== ENCOUNTER 2023-03-30 13:08 | Outpatient (RCR) | payer BC ==
[2023-03-30 13:16] VITALS: BP 150/92
== END 2023-03-30 13:40 | disposition home or self-care (01) ==
LOC: SDC 13:08
PROVIDERS: ATTEND Internal Medicine
DX: Z01.89 Encounter for other specified special examinations (principal)

== ENCOUNTER → 2023-04-13 | Outpatient (CLI) | payer BC ==
[~2023-04-13] VITALS: Ht 162.6 cm; Wt 95.3 kg
[~2023-04-13] MED LIST changes: +FERRIC CARBOXYMALTOSE INJ 750 MG in NS (IVPB) 250 ML 250 ML IV SCH
[2023-04-13 11:37] VITALS: BP 147/79
== END ==
LOC: SDC 11:13
PROVIDERS: ATTEND Internal Medicine
DX: D64.9 Anemia, unspecified (principal)
CPT/HCPCS: 96365

== ENCOUNTER 2023-05-23 05:46 | Outpatient (CLI) | payer BC ==
[~2023-05-23] VITALS: Ht 162.6 cm; Wt 98.0 kg
[~2023-05-23 05:46] MED LIST changes: -FERRIC CARBOXYMALTOSE INJ 750 MG in NS (IVPB) 250 ML 250 ML IV SCH; -GLIP5TAB13 PO; +GLIP5TAB23 PO
[2023-05-30] MEDS ORDERED: HYDR25TA4 PO (09:48)
[2023-05-30] MEDS ORDERED: METF-397 PO (09:48)
[2023-06-05] MEDS ORDERED: PANT40TA2 PO (13:34)
== END 2023-05-30 10:04 | disposition home or self-care (01) ==
LOC: PREOP 05:46
PROVIDERS: ATTEND Surgery
DX: Z01.818 Encounter for other preprocedural examination (principal)